=== PATIENT | male | born 1975 | race Caucasian/White ===

== ENCOUNTER 2020-06-02 21:54 | Inpatient (IN) | payer OTHER ==
[2020-06-02 21:57] VITALS: BMI 29.2
[2020-06-02] MEDS ORDERED: PANTOPRAZOLE SODIUM 40 MG VIAL IVPUSH ONE (22:17)
[2020-06-02] MEDS ORDERED: OCTREOTIDE ACETATE 50 MCG/1 ML - 1 ML VIAL IVPUSH ONE (22:18)
[2020-06-02] MEDS ORDERED: FOLIC ACID INJECTION - 1 MG, THIAMINE HCL 100 MG, MULTIVIT INJECTION ADULT 10 ML in SOD... IVPB ONE (22:32)
[2020-06-02 22:38] LABS: BASO % 1.1 % (0-2.0); EOS % 0.4 % (0-4.5); HEMATOCRIT 49.4 % (35.4-49); HEMOGLOBIN 17.6 GM/dL (11.7-16.9); LYMPH % 13.3 % (8-40); MCH 32.5 pg (25.7-33.7); MCHC 35.6 g/dl (32.0-35.9); MEAN CELL VOLUME 91.3 fl (80-96); MEAN PLT VOLUME 7.7 fl (7.5-11.1); MONO % 7.8 % (3.8-10.2); NEUT % 77.4 % (42.8-82.8); PLATELET COUNT 103 K/MM3 (134-434); RBC 5.42 M/mm3 (4.00-5.60); WHITE BLOOD COUNT 3.5 K/mm3 (4.0-10.0)
[2020-06-02 22:45] LABS: INR 1.04 (0.83-1.09); PROTHROMBIN TIME (PATIENT) 12.8 SEC (9.7-13.0)
[2020-06-02 22:47] LABS: ACTIVATED PTT 32.6 SECONDS (25.2-36.5)
[2020-06-02] MEDS ORDERED: PANTOPRAZOLE SODIUM 40 MG VIAL ONE (22:48)
[2020-06-02 23:07] LABS: POTASSIUM 3.6 mmol/L (3.5-5.1)
[2020-06-02 23:08] LABS: CALCIUM 8.7 mg/dL (8.5-10.1)
[2020-06-02 23:09] LABS: ALBUMIN 4.4 g/dl (3.4-5.0); BLOOD UREA NITROGEN 7.4 mg/dL (7-18)
[2020-06-02 23:12] LABS: CREATININE 0.8 mg/dL (0.55-1.3)
[2020-06-02 23:14] LABS: BILIRUBIN,TOTAL 2.4 mg/dL (0.2-1); TOT PROT 8.4 g/dl (6.4-8.2)
[2020-06-02] MEDS ORDERED: CEFTRIAXONE 1,000 MG in DEXTROSE 5%-WATER - 50 ML IVPB ONE (23:43)
[2020-06-02] MEDS: OCTREOTIDE ACETATE 200 MCG, OCTREOTIDE ACETATE 1,000 MCG in DEXTROSE 5%-WATER - 496 ML IVPB SCH (23:57)
[2020-06-02] MEDS ORDERED: CEFTRIAXONE 1 GM/50 ML BAG ONE (23:59)
[2020-06-03] MEDS ORDERED: chlordiazePOXIDE HCL 25 MG CAPSULE PO ONE (01:38)
[2020-06-03] MEDS ORDERED: LORazepam 2 MG/ML SDV VIAL IVPUSH PRN (01:39)
[2020-06-03] MEDS ORDERED: LORazepam 2 MG/ML SDV VIAL IVPUSH ONE (01:45)
[2020-06-03] MEDS ORDERED: SODIUM CHLORIDE 1,000 ML IV SCH (01:45)
[2020-06-03] MEDS ORDERED: chlordiazePOXIDE HCL 25 MG CAPSULE ONE (01:50)
[2020-06-03 02:56] LABS: EPI CELLS 8 /uL (0-25.1); HYALINE CASTS 2 /uL (0-3.1); URINE APPEARANCE CLEAR; URINE BACTERIA 22 /uL (0-1359); URINE BILIRUBIN 1+ (NEGATIVE); URINE COLOR DK YELLOW; URINE GLUCOSE (UA) 3+ (NEGATIVE); URINE KETONE 3+ (NEGATIVE); URINE LEUK ESTERASE NEGATIVE (NEGATIVE); URINE NITRITE NEGATIVE (NEGATIVE); URINE PROTEIN 2+ (NEGATIVE); URINE RBC 10 /uL (0-23.9); URINE UROBILINOGEN 4.0 E.U/dl mg/dL (0.2-1.0); URINE WBC 2 /uL (0-25.8)
[2020-06-03] MEDS: SODIUM CHLORIDE 1,000 ML IV SCH (03:19)
[2020-06-03] MEDS ORDERED: INSULIN SLIDING SCALE (NOVOLOG) 1 VIAL SQ ONE (08:40)
[2020-06-03] MEDS: INSULIN SLIDING SCALE (NOVOLOG) 1 VIAL SQ SCH ×3 (08:43→23:09)
[2020-06-03] MEDS ORDERED: THIAMINE HCL 200 MG/2 ML VIAL ONE (10:15)
[2020-06-03] MEDS ORDERED: PANTOPRAZOLE SODIUM 40 MG VIAL ONE (10:16)
[2020-06-03] MEDS: THIAMINE HCL 200 MG/2 ML VIAL IVPB SCH (10:23)
[2020-06-03] MEDS: PANTOPRAZOLE SODIUM 40 MG VIAL IVPUSH SCH ×2 (10:23→23:09)
[2020-06-03] MEDS: LORazepam 2 MG/ML SDV VIAL IVPUSH SCH ×2 (13:24→18:45)
[2020-06-03 14:33] LABS: BASO % 0.9 % (0-2.0); EOS % 1.6 % (0-4.5); HEMATOCRIT 42.7 % (35.4-49); HEMOGLOBIN 14.8 GM/dL (11.7-16.9); LYMPH % 15.1 % (8-40); MCHC 34.6 g/dl (32.0-35.9); MEAN CELL VOLUME 92.4 fl (80-96); MEAN PLT VOLUME 8.1 fl (7.5-11.1); MONO % 9.9 % (3.8-10.2); NEUT % 72.5 % (42.8-82.8); PLATELET COUNT 68 K/MM3 (134-434); RBC 4.62 M/mm3 (4.00-5.60); RDW 13.9 % (11.9-15.9); WHITE BLOOD COUNT 3.3 K/mm3 (4.0-10.0)
[2020-06-03 14:51] LABS: CALCIUM 8.4 mg/dL (8.5-10.1)
[2020-06-03 14:53] LABS: ALBUMIN 3.6 g/dl (3.4-5.0); BLOOD UREA NITROGEN 8.6 mg/dL (7-18); MAGNESIUM 2.1 mg/dL (1.8-2.4)
[2020-06-03 14:55] LABS: CREATININE 0.6 mg/dL (0.55-1.3)
[2020-06-03 14:56] LABS: BILIRUBIN,TOTAL 3.5 mg/dL (0.2-1); PHOSPHOROUS 3.2 mg/dL (2.5-4.9); TOT PROT 6.9 g/dl (6.4-8.2)
[2020-06-03] MEDS ORDERED: INSULIN (LEVEMIR) 100 UNITS/ML UNITS SQ SCH (22:00)
[2020-06-03] MEDS: OCTREOTIDE ACETATE 200 MCG, OCTREOTIDE ACETATE 1,000 MCG in DEXTROSE 5%-WATER - 496 ML IVPB SCH (23:40)
[2020-06-04] MEDS: LORazepam 2 MG/ML SDV VIAL IVPUSH SCH ×5 (02:27→17:51)
[2020-06-04] MEDS: SODIUM CHLORIDE 1,000 ML IV SCH (06:19)
[2020-06-04] MEDS: INSULIN SLIDING SCALE (NOVOLOG) 1 VIAL SQ SCH ×4 (06:20→22:18)
[2020-06-04 08:22] LABS: HEMATOCRIT 42.4 % (35.4-49); HEMOGLOBIN 15.2 GM/dL (11.7-16.9); MCH 32.6 pg (25.7-33.7); MCHC 35.9 g/dl (32.0-35.9); MEAN CELL VOLUME 90.8 fl (80-96); MEAN PLT VOLUME 8.3 fl (7.5-11.1); PLATELET COUNT 66 K/MM3 (134-434); RBC 4.67 M/mm3 (4.00-5.60); WHITE BLOOD COUNT 2.7 K/mm3 (4.0-10.0)
[2020-06-04 08:37] LABS: POTASSIUM 3.3 mmol/L (3.5-5.1)
[2020-06-04 08:49] LABS: BILIRUBIN,TOTAL 3.6 mg/dL (0.2-1); TOT PROT 6.7 g/dl (6.4-8.2)
[2020-06-04 08:53] LABS: ALBUMIN 3.6 g/dl (3.4-5.0); BLOOD UREA NITROGEN 8.9 mg/dL (7-18); CALCIUM 8.6 mg/dL (8.5-10.1)
[2020-06-04 08:57] LABS: CREATININE 0.6 mg/dL (0.55-1.3)
[2020-06-04] MEDS ORDERED: FLU VACCINE (FLULAVAL) PF 60 MCG/0.5 ML SYRINGE 2020-2021 IM ONE (10:00)
[2020-06-04] MEDS ORDERED: PNEUMOCOCCAL 23 VACCINE 0.5 ML VIAL IM ONE (10:00)
[2020-06-04] MEDS ORDERED: PNEUMOC 13-VAL CONJ-DIP CRM/PF 0.5 ML DISP.SYRIN IM ONE (10:00)
[2020-06-04] MEDS: PANTOPRAZOLE SODIUM 40 MG VIAL IVPUSH SCH (10:45)
[2020-06-04] MEDS: THIAMINE HCL 200 MG/2 ML VIAL IVPB SCH (10:45)
[2020-06-04 13:10] LABS: MAGNESIUM 2.1 mg/dL (1.8-2.4)
[2020-06-04 13:11] LABS: PHOSPHOROUS 3.1 mg/dL (2.5-4.9)
[2020-06-04] MEDS ORDERED: POTASSIUM CHLORIDE TABS 20 MEQ TABLET.ER (FP) PO ONE (15:37)
[2020-06-04] MEDS: LORazepam 1 MG TABLET PO SCH ×3 (19:48→22:18)
[2020-06-04] MEDS: INSULIN (LEVEMIR) 100 UNITS/ML UNITS SQ SCH (22:19)
[2020-06-05] MEDS ORDERED: LORazepam 2 MG/ML SDV VIAL IVPUSH SCH (05:00)
[2020-06-05] MEDS: LORazepam 0.5 MG TABLET PO SCH ×4 (06:32→23:09)
[2020-06-05] MEDS: INSULIN SLIDING SCALE (NOVOLOG) 1 VIAL SQ SCH ×4 (06:32→21:39)
[2020-06-05 07:25] LABS: EOS % 3.1 % (0-4.5); HEMATOCRIT 44.3 % (35.4-49); HEMOGLOBIN 15.9 GM/dL (11.7-16.9); LYMPH % 18.9 % (8-40); MCH 32.8 pg (25.7-33.7); MCHC 35.8 g/dl (32.0-35.9); MEAN CELL VOLUME 91.6 fl (80-96); MEAN PLT VOLUME 8.2 fl (7.5-11.1); MONO % 8.1 % (3.8-10.2); NEUT % 68.9 % (42.8-82.8); PLATELET COUNT 65 K/MM3 (134-434); RBC 4.83 M/mm3 (4.00-5.60); RDW 13.9 % (11.9-15.9); WHITE BLOOD COUNT 3.9 K/mm3 (4.0-10.0)
[2020-06-05 07:28] LABS: INR 1.01 (0.83-1.09); PROTHROMBIN TIME (PATIENT) 12.4 SEC (9.7-13.0)
[2020-06-05 07:35] LABS: ALBUMIN 3.5 g/dl (3.4-5.0); CALCIUM 8.4 mg/dL (8.5-10.1)
[2020-06-05 07:36] LABS: BLOOD UREA NITROGEN 10.4 mg/dL (7-18); MAGNESIUM 2.1 mg/dL (1.8-2.4)
[2020-06-05 07:38] LABS: PHOSPHOROUS 3.6 mg/dL (2.5-4.9)
[2020-06-05 07:39] LABS: CREATININE 0.6 mg/dL (0.55-1.3)
[2020-06-05 07:40] LABS: BILIRUBIN,TOTAL 2.5 mg/dL (0.2-1); TOT PROT 6.9 g/dl (6.4-8.2)
[2020-06-05] MEDS: FOLIC ACID 1 MG TABLET (FP) PO SCH (09:33)
[2020-06-05] MEDS: POTASSIUM CHLORIDE TABS 20 MEQ TABLET.ER (FP) PO SCH ×2 (09:33→21:38)
[2020-06-05] MEDS: THIAMINE HCL 200 MG/2 ML VIAL IVPB SCH (09:33)
[2020-06-05] MEDS: PANTOPRAZOLE 20 MG TABLET PO SCH (09:33)
[2020-06-05] MEDS: INSULIN (LEVEMIR) 100 UNITS/ML UNITS SQ SCH (21:39)
[2020-06-06] MEDS ORDERED: LORazepam 0.5 MG TABLET PO PRN
[2020-06-06] MEDS ORDERED: LORazepam 2 MG/ML SDV VIAL IVPUSH SCH (05:00)
[2020-06-06] MEDS ORDERED: LORazepam 0.5 MG TABLET PO ONE (05:00)
[2020-06-06] MEDS: INSULIN SLIDING SCALE (NOVOLOG) 1 VIAL SQ SCH ×3 (07:07→17:18)
[2020-06-06 07:35] LABS: EOS % 3.2 % (0-4.5); HEMATOCRIT 42.5 % (35.4-49); HEMOGLOBIN 15.2 GM/dL (11.7-16.9); LYMPH % 22.1 % (8-40); MCH 32.8 pg (25.7-33.7); MCHC 35.7 g/dl (32.0-35.9); MEAN CELL VOLUME 92.1 fl (80-96); MEAN PLT VOLUME 8.6 fl (7.5-11.1); MONO % 11.2 % (3.8-10.2); NEUT % 62.5 % (42.8-82.8); PLATELET COUNT 76 K/MM3 (134-434); RBC 4.61 M/mm3 (4.00-5.60); RDW 14.1 % (11.9-15.9); WHITE BLOOD COUNT 4.1 K/mm3 (4.0-10.0)
[2020-06-06 07:43] LABS: POTASSIUM 3.3 mmol/L (3.5-5.1)
[2020-06-06 07:53] LABS: ALBUMIN 3.5 g/dl (3.4-5.0); BLOOD UREA NITROGEN 8.6 mg/dL (7-18); CALCIUM 8.5 mg/dL (8.5-10.1); MAGNESIUM 2.3 mg/dL (1.8-2.4)
[2020-06-06 07:55] LABS: CREATININE 0.6 mg/dL (0.55-1.3)
[2020-06-06 07:56] LABS: PHOSPHOROUS 3.9 mg/dL (2.5-4.9)
[2020-06-06 07:57] LABS: BILIRUBIN,TOTAL 2.3 mg/dL (0.2-1); TOT PROT 6.6 g/dl (6.4-8.2)
[2020-06-06] MEDS ORDERED: POTASSIUM CHLORIDE TABS 20 MEQ TABLET.ER (FP) PO ONE (09:25)
[2020-06-06] MEDS: THIAMINE HCL 200 MG/2 ML VIAL IVPB SCH (09:34)
[2020-06-06] MEDS: PANTOPRAZOLE 20 MG TABLET PO SCH (09:34)
[2020-06-06] MEDS: FOLIC ACID 1 MG TABLET (FP) PO SCH (09:35)
[2020-06-06] MEDS ORDERED: PT OWN MED DRAWER 7, Y5N ONE (10:10)
[2020-06-06 11:10] VITALS: TEMP 98.1
[2020-06-06 18:21] VITALS: BP 122/80; PULSE 102
== END 2020-06-06 18:53 | disposition home or self-care (01) | DRG 243 ==
LOC: JER 21:54 → JERBED 23:46 → J4W 06-03 11:34
PROVIDERS: ADMIT Internal Medicine; ATTEND Internal Medicine
PROC: 0DB68ZX Excision of Stomach, Via Natural or Artificial Opening Endoscopic, Diagnostic (ICD-10-PCS; principal; 2020-06-02)
PROC: 0DB78ZX Excision of Stomach, Pylorus, Via Natural or Artificial Opening Endoscopic, Diagnostic (ICD-10-PCS; 2020-06-02)
PROC: HZ2ZZZZ Detoxification Services for Substance Abuse Treatment (ICD-10-PCS; 2020-06-02)
DX: K20.91 Esophagitis, unspecified with bleeding (principal); K92.0 Hematemesis; I10 Essential (primary) hypertension; E87.2 Acidosis; F10.129 Alcohol abuse with intoxication, unspecified; Y90.5 Blood alcohol level of 100-119 mg/100 ml; K70.10 Alcoholic hepatitis without ascites; F10.130 Alcohol abuse with withdrawal, uncomplicated; E11.65 Type 2 diabetes mellitus with hyperglycemia; E87.6 Hypokalemia; L53.8 Other specified erythematous conditions; K29.70 Gastritis, unspecified, without bleeding; R74.01 Elevation of levels of liver transaminase levels
CPT/HCPCS: 36415; 71045-TC-FY; 76705-TC; 80048; 80053; 80074; 80076; 80307; 81003; 82010; 82248; 82550; 82962; 83036; 83605; 83690; 83735; 84100; 84443; 85025; 85027; 85610; 85730; 86317; 86706; 86850; 86900; 86901; 88305-TC; 90732; 93005; 93010; 99285-25; C9803; G0008; G0009; Q2036; U0003

== ENCOUNTER 2020-10-24 21:54 | Emergency (ER) | payer OTHER ==
[2020-10-24 22:23] VITALS: BMI 29.2
[2020-10-24] MEDS ORDERED: FOLIC ACID INJECTION - 1 MG, THIAMINE HCL 100 MG, MULTIVIT INJECTION ADULT 10 ML in SOD... IVPB ONE (23:17)
[2020-10-24] MEDS ORDERED: SODIUM CHLORIDE 1,000 ML IV STA (23:17)
[2020-10-24] MEDS ORDERED: PANTOPRAZOLE SODIUM 40 MG VIAL IVPUSH ONE (23:17)
[2020-10-24 23:55] LABS: INR 0.98 (0.83-1.09); PROTHROMBIN TIME (PATIENT) 11.9 SEC (9.7-13.0)
[2020-10-24 23:58] LABS: ACTIVATED PTT 28.3 SECONDS (25.2-36.5)
[2020-10-25 00:07] LABS: CHLORIDE 95 mmol/L (98-107); SODIUM 134 mmol/L (136-145)
[2020-10-25 00:10] LABS: ALBUMIN 4.4 g/dl (3.4-5.0); ANION GAP 17 MMOL/L (8-16); BLOOD UREA NITROGEN 5.8 mg/dL (7-18); CALCIUM 8.7 mg/dL (8.5-10.1); CO2 22 mmol/L (21-32); GLUCOSE,RANDOM 320 mg/dL (74-106); MAGNESIUM 2.4 mg/dL (1.8-2.4)
[2020-10-25 00:13] LABS: CREATININE 1.4 mg/dL (0.55-1.3); SGOT/AST 212 U/L (15-37); SGPT/ALT 237 U/L (13-61)
[2020-10-25 00:15] LABS: BILIRUBIN,TOTAL 1.9 mg/dL (0.2-1); TOT PROT 8.2 g/dl (6.4-8.2)
[2020-10-25 00:16] LABS: ALK PHOS 168 U/L (45-117)
[2020-10-25 01:58] LABS: BASO % 0.6 % (0-2.0); EOS % 0.1 % (0-4.5); LYMPH % 19.3 % (8-40); MCH 31.8 pg (25.7-33.7); MCHC 34.9 g/dl (32.0-35.9); MEAN PLT VOLUME 7.3 fl (7.5-11.1); MONO % 7.4 % (3.8-10.2); NEUT % 72.6 % (42.8-82.8); PLATELET COUNT 56 10^3/uL (134-434); RBC 4.73 M/mm3 (4.00-5.60); RDW 13.8 % (11.9-15.9); WHITE BLOOD COUNT 2.8 K/mm3 (4.0-10.0)
[2020-10-25 04:08] LABS: VENOUS BASE EXCESS -3.2 mmol/L (-2-2); VENOUS O2 SATURATION 93.1 % (70-80); VENOUS PCO2 37.8 mmHg (38-52); VENOUS PH 7.373 (7.310-7.410)
[2020-10-25 04:32] LABS: CALCIUM 8.1 mg/dL (8.5-10.1)
[2020-10-25 04:33] LABS: BLOOD UREA NITROGEN 5.3 mg/dL (7-18)
[2020-10-25 04:36] LABS: CREATININE 1.3 mg/dL (0.55-1.3)
[2020-10-25 04:56] VITALS: BP 138/77; PULSE 115; TEMP 98.8
== END 2020-10-25 06:13 | disposition home or self-care (01) ==
LOC: JER 21:54
PROC: 3E033GC Introduction of Other Therapeutic Substance into Peripheral Vein, Percutaneous Approach (ICD-10-PCS; principal; 2020-10-24)
PROC: 3E033GC Introduction of Other Therapeutic Substance into Peripheral Vein, Percutaneous Approach (ICD-10-PCS; 2020-10-24)
PROC: 3E0337Z Introduction of Electrolytic and Water Balance Substance into Peripheral Vein, Percutaneous Approach (ICD-10-PCS; 2020-10-24)
DX: F10.29 Alcohol dependence with unspecified alcohol-induced disorder (principal); E86.0 Dehydration; R73.9 Hyperglycemia, unspecified
CPT/HCPCS: 36415; 70450-TC; 71260-TC; 74177-TC; 80048; 80053; 80307; 82010; 82550; 82803; 83605; 83735; 84484; 85025; 85610; 85730; 86850; 86870; 86900; 86901; 86902; 93005; 93010; 99285-25

== ENCOUNTER 2020-12-30 01:49 | Inpatient (IN) | payer OTHER ==
[2020-12-30] MEDS ORDERED: ONDANSETRON *ODT* 4 MG TABLET SL PRN (02:49)
[2020-12-30] MEDS ORDERED: DICYCLOMINE HCL 10 MG CAPSULE PO PRN (02:49)
[2020-12-30] MEDS ORDERED: diazePAM 5 MG TABLET PO PRN (02:49)
[2020-12-30] MEDS ORDERED: hydrOXYzine PAMOATE 25 MG CAPSULE (FP) PO PRN (02:49)
[2020-12-30] MEDS ORDERED: MAGNESIUM CITRATE 300 ML BOTTLE PO PRN (02:49)
[2020-12-30] MEDS ORDERED: BISMUTH SUBSALICYLATE 524 MG/30 ML PO PRN (02:49)
[2020-12-30] MEDS ORDERED: guaiFENesin 200 MG/10 ML 10 ML UNIT-DOSE CUPS PO PRN (02:49)
[2020-12-30] MEDS ORDERED: MAG HYDROX/AL HYDROX/SIMETH 30 ML UNIT-DOSE CUP PO PRN (02:49)
[2020-12-30] MEDS ORDERED: IBUPROFEN 400 MG TABLET (FP) PO PRN (02:49)
[2020-12-30] MEDS ORDERED: P-EPHED 60MG/TRIPROLIDI 2.5MG TABLET PO PRN (02:49)
[2020-12-30] MEDS ORDERED: MENTHOL/PHENOL 1 EACH UD MM PRN (02:49)
[2020-12-30] MEDS ORDERED: MAGNESIUM HYDROX 2400MG/30ML ORAL SUSPENSION 30 ML CUP PO PRN (02:49)
[2020-12-30] MEDS ORDERED: METHOCARBAMOL 500 MG TABLET PO PRN (02:49)
[2020-12-30] MEDS ORDERED: ACETAMINOPHEN 325 MG TABLET (FP) PO PRN ×2 (02:49)
[2020-12-30] MEDS: diazePAM 5 MG TABLET PO SCH ×4 (06:29→22:40)
[2020-12-30] MEDS: PRENATAL VITAMINS W/ FOLIC ACID TABLET (FP) PO SCH (10:39)
[2020-12-30] MEDS: MELATONIN 5 MG TABLETS PO SCH (22:39)
[2020-12-30] MEDS: THIAMINE HCL 100 MG TABLET (FP) PO SCH (22:40)
[2020-12-31] MEDS: INSULIN SLIDING SCALE (NOVOLOG) 1 VIAL SQ SCH ×3 (06:03→17:16)
[2020-12-31] MEDS: diazePAM 5 MG TABLET PO SCH ×3 (06:03→23:17)
[2020-12-31] MEDS ORDERED: INSULIN SLIDING SCALE (NOVOLOG) 1 VIAL SQ ONE (07:55)
[2020-12-31] MEDS: PRENATAL VITAMINS W/ FOLIC ACID TABLET (FP) PO SCH (10:27)
[2020-12-31 11:36] LABS: BASO % 1.1 % (0-2.0); EOS % 3.5 % (0-4.5); HEMATOCRIT 44.6 % (35.4-49); HEMOGLOBIN 16.2 GM/dL (11.7-16.9); LYMPH % 20.9 % (8-40); MCH 33.5 pg (25.7-33.7); MCHC 36.3 g/dl (32.0-35.9); MEAN CELL VOLUME 92.3 fl (80-96); MEAN PLT VOLUME 8.4 fl (7.5-11.1); MONO % 11.2 % (3.8-10.2); NEUT % 63.3 % (42.8-82.8); PLATELET COUNT 101 10^3/uL (134-434); RBC 4.84 M/mm3 (4.00-5.60); RDW 13.8 % (11.9-15.9)
[2020-12-31 11:48] LABS: CHLORIDE 95 mmol/L (98-107); SODIUM 133 mmol/L (136-145)
[2020-12-31 11:55] LABS: ALBUMIN 4.2 g/dl (3.4-5.0); BLOOD UREA NITROGEN 7.5 mg/dL (7-18); CALCIUM 9.3 mg/dL (8.5-10.1); CO2 27 mmol/L (21-32); GLUCOSE,RANDOM 215 mg/dL (74-106)
[2020-12-31 11:58] LABS: CREATININE 0.9 mg/dL (0.55-1.3); SGOT/AST 331 U/L (15-37); SGPT/ALT 288 U/L (13-61)
[2020-12-31 12:00] LABS: BILIRUBIN,TOTAL 2.3 mg/dL (0.2-1); TOT PROT 7.9 g/dl (6.4-8.2)
[2020-12-31] MEDS ORDERED: metFORMIN HCL 500 MG TABLET (FP) PO SCH (12:00)
[2020-12-31 12:02] LABS: ALK PHOS 168 U/L (45-117); ANION GAP 12 MMOL/L (8-16)
[2020-12-31] MEDS: POTASSIUM CHLORIDE ORAL LIQUID 20 MEQ/15 ML PO SCH ×3 (13:27→23:15)
[2020-12-31] MEDS ORDERED: metFORMIN HCL 500 MG TABLET (FP) PO ONE (14:34)
[2020-12-31] MEDS: metFORMIN HCL 500 MG TABLET (FP) PO SCH (18:10)
[2020-12-31] MEDS: THIAMINE HCL 100 MG TABLET (FP) PO SCH (23:17)
[2020-12-31] MEDS: MELATONIN 5 MG TABLETS PO SCH (23:17)
[2021-01-01] MEDS: diazePAM 5 MG TABLET PO SCH ×2 (07:18→17:54)
[2021-01-01] MEDS: metFORMIN HCL 500 MG TABLET (FP) PO SCH ×2 (07:19→17:54)
[2021-01-01] MEDS ORDERED: INSULIN SLIDING SCALE (NOVOLOG) 1 VIAL SQ ONE (07:43)
[2021-01-01] MEDS: INSULIN SLIDING SCALE (NOVOLOG) 1 VIAL SQ SCH ×2 (07:44→16:53)
[2021-01-01] MEDS: PRENATAL VITAMINS W/ FOLIC ACID TABLET (FP) PO SCH (11:25)
[2021-01-01 11:52] LABS: CALCIUM 9.8 mg/dL (8.5-10.1)
[2021-01-01 11:58] LABS: ALBUMIN 4.2 g/dl (3.4-5.0); BLOOD UREA NITROGEN 8.3 mg/dL (7-18)
[2021-01-01 12:01] LABS: CREATININE 0.8 mg/dL (0.55-1.3)
[2021-01-01 12:02] LABS: BILIRUBIN,TOTAL 2.1 mg/dL (0.2-1); TOT PROT 8.1 g/dl (6.4-8.2)
[2021-01-01] MEDS: THIAMINE HCL 100 MG TABLET (FP) PO SCH (22:39)
[2021-01-01] MEDS: MELATONIN 5 MG TABLETS PO SCH (22:40)
[2021-01-02] MEDS ORDERED: diazePAM 5 MG TABLET PO ONE (06:00)
[2021-01-02] MEDS: metFORMIN HCL 500 MG TABLET (FP) PO SCH (06:00)
[2021-01-02] MEDS: INSULIN SLIDING SCALE (NOVOLOG) 1 VIAL SQ SCH (07:13)
[2021-01-02 09:13] VITALS: BP 123/84; PULSE 98; TEMP 96.4
[2021-01-02] MEDS: PRENATAL VITAMINS W/ FOLIC ACID TABLET (FP) PO SCH (10:01)
== END 2021-01-02 10:03 | disposition home or self-care (01) | DRG 775 ==
LOC: YASAS 01:49 → Y3N 03:15
PROVIDERS: ADMIT Allergy & Immunology; ATTEND Allergy & Immunology
PROC: HZ2ZZZZ Detoxification Services for Substance Abuse Treatment (ICD-10-PCS; principal; 2020-12-30)
DX: F10.230 Alcohol dependence with withdrawal, uncomplicated (principal); F19.282 Other psychoactive substance dependence with psychoactive substance-induced sleep disorder; E11.9 Type 2 diabetes mellitus without complications; Z79.84 Long term (current) use of oral hypoglycemic drugs; R63.8 Other symptoms and signs concerning food and fluid intake; R79.89 Other specified abnormal findings of blood chemistry; Z20.822 Contact with and (suspected) exposure to COVID-19
CPT/HCPCS: 36415; 76705-TC; 80053; 82962; 83690; 85025; 86780; 93005; 93010; C9803; U0003; U0005

== ENCOUNTER 2021-02-17 23:29 | Inpatient (IN) | payer OTHER ==
[2021-02-17 23:53] VITALS: BMI 31.8
[2021-02-18] MEDS ORDERED: MAGNESIUM HYDROX 2400MG/30ML ORAL SUSPENSION 30 ML CUP PO PRN (00:35)
[2021-02-18] MEDS ORDERED: MAG HYDROX/AL HYDROX/SIMETH 30 ML UNIT-DOSE CUP PO PRN (00:35)
[2021-02-18] MEDS ORDERED: MENTHOL/PHENOL 1 EACH UD MM PRN (00:35)
[2021-02-18] MEDS ORDERED: BISMUTH SUBSALICYLATE 524 MG/30 ML PO PRN (00:35)
[2021-02-18] MEDS ORDERED: IBUPROFEN 400 MG TABLET (FP) PO PRN (00:35)
[2021-02-18] MEDS ORDERED: MAGNESIUM CITRATE 300 ML BOTTLE PO PRN (00:35)
[2021-02-18] MEDS ORDERED: ACETAMINOPHEN 325 MG TABLET (FP) PO PRN ×2 (00:35)
[2021-02-18] MEDS: ONDANSETRON *ODT* 4 MG TABLET SL PRN ×2 (01:07→10:17)
[2021-02-18] MEDS ORDERED: LORazepam 1 MG TABLET ONE (01:34)
[2021-02-18] MEDS: LORazepam 1 MG TABLET PO PRN ×2 (01:37→14:50)
[2021-02-18] MEDS: LORazepam 2 MG TABLET PO SCH ×4 (05:57→22:27)
[2021-02-18] MEDS ORDERED: metFORMIN HCL 500 MG TABLET (FP) PO ONE (07:32)
[2021-02-18] MEDS ORDERED: metFORMIN HCL 500 MG TABLET (FP) PO SCH (10:00)
[2021-02-18] MEDS: PRENATAL VITAMINS W/ FOLIC ACID TABLET (FP) PO SCH (10:13)
[2021-02-18] MEDS: metFORMIN HCL 500 MG TABLET (FP) PO SCH (17:33)
[2021-02-18] MEDS: THIAMINE HCL 100 MG TABLET (FP) PO SCH (22:28)
[2021-02-18] MEDS: MELATONIN 5 MG TABLETS PO SCH (22:28)
[2021-02-19] MEDS: LORazepam 1 MG TABLET PO SCH ×4 (05:21→22:19)
[2021-02-19] MEDS: metFORMIN HCL 500 MG TABLET (FP) PO SCH ×2 (06:15→18:05)
[2021-02-19] MEDS: PRENATAL VITAMINS W/ FOLIC ACID TABLET (FP) PO SCH (10:27)
[2021-02-19] MEDS: METHOCARBAMOL 500 MG TABLET PO PRN ×2 (10:28→22:19)
[2021-02-19 10:54] LABS: HEMATOCRIT 41.8 % (35.4-49); HEMOGLOBIN 14.9 GM/dL (11.7-16.9); MCH 32.4 pg (25.7-33.7); MCHC 35.6 g/dl (32.0-35.9); PLATELET COUNT 77 10^3/uL (134-434); RBC 4.59 M/mm3 (4.00-5.60); RDW 13.5 % (11.9-15.9); WHITE BLOOD COUNT 3.1 K/mm3 (4.0-10.0)
[2021-02-19 10:55] LABS: BLOOD UREA NITROGEN 10.6 mg/dL (7-18); CALCIUM 9.1 mg/dL (8.5-10.1)
[2021-02-19 10:59] LABS: CREATININE 0.7 mg/dL (0.55-1.3)
[2021-02-19 11:00] LABS: BILIRUBIN,TOTAL 2.7 mg/dL (0.2-1); TOT PROT 7.2 g/dl (6.4-8.2)
[2021-02-19 11:07] LABS: ALBUMIN 3.8 g/dl (3.4-5.0)
[2021-02-19] MEDS: THIAMINE HCL 100 MG TABLET (FP) PO SCH (22:19)
[2021-02-19] MEDS: MELATONIN 5 MG TABLETS PO SCH (22:20)
[2021-02-20] MEDS ORDERED: LORazepam 0.5 MG TABLET PO PRN
[2021-02-20] MEDS: LORazepam 0.5 MG TABLET PO SCH ×4 (06:23→22:27)
[2021-02-20] MEDS: metFORMIN HCL 500 MG TABLET (FP) PO SCH ×2 (06:23→17:28)
[2021-02-20] MEDS: PRENATAL VITAMINS W/ FOLIC ACID TABLET (FP) PO SCH (10:40)
[2021-02-20 10:57] LABS: BASO % 0.4 % (0-2.0); EOS % 2.6 % (0-4.5); HEMATOCRIT 42.2 % (35.4-49); HEMOGLOBIN 14.8 GM/dL (11.7-16.9); LYMPH % 20.3 % (8-40); MCH 32.1 pg (25.7-33.7); MCHC 35.1 g/dl (32.0-35.9); MEAN CELL VOLUME 91.4 fl (80-96); MEAN PLT VOLUME 8.3 fl (7.5-11.1); MONO % 9.5 % (3.8-10.2); NEUT % 67.2 % (42.8-82.8); PLATELET COUNT 70 10^3/uL (134-434); RBC 4.62 M/mm3 (4.00-5.60); RDW 13.8 % (11.9-15.9); WHITE BLOOD COUNT 3.5 K/mm3 (4.0-10.0)
[2021-02-20 11:04] LABS: ALBUMIN 3.7 g/dl (3.4-5.0)
[2021-02-20 11:07] LABS: BILIRUBIN,DIRECT 0.5 mg/dL (0.0-0.2)
[2021-02-20 11:09] LABS: BILIRUBIN,TOTAL 2.3 mg/dL (0.2-1); TOT PROT 7.1 g/dl (6.4-8.2)
[2021-02-20] MEDS: MELATONIN 5 MG TABLETS PO SCH (22:27)
[2021-02-20] MEDS: THIAMINE HCL 100 MG TABLET (FP) PO SCH (22:27)
[2021-02-21] MEDS ORDERED: LORazepam 0.5 MG TABLET PO ONE (05:00)
[2021-02-21] MEDS: metFORMIN HCL 500 MG TABLET (FP) PO SCH (06:21)
[2021-02-21 09:11] VITALS: BP 115/77; PULSE 97; TEMP 96.9
== END 2021-02-21 09:36 | disposition home or self-care (01) | DRG 775 ==
LOC: YASAS 23:29 → Y3N 02-18 02:02
PROVIDERS: ADMIT Allergy & Immunology; ATTEND Allergy & Immunology
PROC: HZ2ZZZZ Detoxification Services for Substance Abuse Treatment (ICD-10-PCS; principal; 2021-02-18)
DX: F10.230 Alcohol dependence with withdrawal, uncomplicated (principal); F19.282 Other psychoactive substance dependence with psychoactive substance-induced sleep disorder; D69.6 Thrombocytopenia, unspecified; D72.819 Decreased white blood cell count, unspecified; E80.6 Other disorders of bilirubin metabolism; E11.9 Type 2 diabetes mellitus without complications; Z79.84 Long term (current) use of oral hypoglycemic drugs; K70.30 Alcoholic cirrhosis of liver without ascites; R74.01 Elevation of levels of liver transaminase levels; Z74.8 Other problems related to care provider dependency; R63.8 Other symptoms and signs concerning food and fluid intake; Z87.19 Personal history of other diseases of the digestive system
CPT/HCPCS: 36415; 80053; 80076; 80307; 82962; 83690; 85025; 85027; 85610; 85730; 86780; 93005; 93010; C9803; J0131; Q0162; U0003; U0005

== ENCOUNTER 2021-03-13 14:25 | Inpatient (IN) | payer OTHER ==
[2021-03-13] MEDS ORDERED: FAMOTIDINE 20 MG/50 ML IVPB 20 MG/50 ML MG IVPB ONE ×2 (15:28→15:33)
[2021-03-13] MEDS ORDERED: MAG HYDROX/AL HYDROX/SIMETH -MYLANTA- ORAL SUSPENSION PO ONE (15:28)
[2021-03-13] MEDS ORDERED: ONDANSETRON 4 MG/2 ML VIAL IVPUSH ONE (15:28)
[2021-03-13] MEDS ORDERED: LACTATED RINGERS SOLUTION 1000 ML INFUS.BAG IV ONE ×2 (15:29→16:56)
[2021-03-13] MEDS ORDERED: ONDANSETRON 4 MG/2 ML VIAL ONE (15:33)
[2021-03-13] MEDS ORDERED: MAG HYDROX/AL HYDROX/SIMETH 30 ML UNIT-DOSE CUP ONE (15:33)
[2021-03-13 16:11] LABS: VENOUS BASE EXCESS 0.5 mmol/L (-2-2); VENOUS O2 SATURATION 92.5 % (70-80); VENOUS PCO2 38.5 mmHg (38-52); VENOUS PH 7.425 (7.310-7.410)
[2021-03-13 16:15] LABS: BASO % 0.2 % (0-2.0); EOS % 0.1 % (0-4.5); HEMATOCRIT 47.1 % (35.4-49); HEMOGLOBIN 16.5 GM/dL (11.7-16.9); LYMPH % 6.4 % (8-40); MCH 31.7 pg (25.7-33.7); MCHC 35.1 g/dl (32.0-35.9); MEAN CELL VOLUME 90.3 fl (80-96); MEAN PLT VOLUME 7.7 fl (7.5-11.1); MONO % 6.8 % (3.8-10.2); NEUT % 86.5 % (42.8-82.8); PLATELET COUNT 101 10^3/uL (134-434); RBC 5.22 M/mm3 (4.00-5.60); WHITE BLOOD COUNT 4.3 K/mm3 (4.0-10.0)
[2021-03-13 16:27] LABS: CHLORIDE 90 mmol/L (98-107); SODIUM 132 mmol/L (136-145)
[2021-03-13 16:29] LABS: CALCIUM 9.3 mg/dL (8.5-10.1)
[2021-03-13] MEDS ORDERED: diazePAM CARPU-JECT 10 MG/2 ML DISP.SYRIN IVPUSH ONE (16:29)
[2021-03-13 16:30] LABS: ALBUMIN 4.2 g/dl (3.4-5.0); ANION GAP 19 MMOL/L (8-16); BLOOD UREA NITROGEN 5.3 mg/dL (7-18); CO2 23 mmol/L (21-32); GLUCOSE,RANDOM 322 mg/dL (74-106); LIPASE 175 U/L (73-393)
[2021-03-13 16:32] LABS: EPI CELLS 1 /uL (0-25.1); HYALINE CASTS 0 /uL (0-3.1); URINE APPEARANCE CLEAR; URINE BACTERIA 3 /uL (0-1359); URINE BILIRUBIN NEGATIVE (NEGATIVE); URINE COLOR YELLOW; URINE GLUCOSE (UA) 3+ (NEGATIVE); URINE KETONE 3+ (NEGATIVE); URINE LEUK ESTERASE NEGATIVE (NEGATIVE); URINE NITRITE NEGATIVE (NEGATIVE); URINE PROTEIN 2+ (NEGATIVE); URINE RBC 21 /uL (0-23.9); URINE UROBILINOGEN 4.0 E.U/dl mg/dL (0.2-1.0); URINE WBC 2 /uL (0-25.8)
[2021-03-13 16:32] LABS: SGOT/AST 61 U/L (15-37); SGPT/ALT 78 U/L (13-61)
[2021-03-13 16:33] LABS: CREATININE 1.6 mg/dL (0.55-1.3)
[2021-03-13 16:34] LABS: BILIRUBIN,TOTAL 2.5 mg/dL (0.2-1); TOT PROT 8.6 g/dl (6.4-8.2)
[2021-03-13 16:35] LABS: ALK PHOS 145 U/L (45-117)
[2021-03-13] MEDS ORDERED: diazePAM CARPU-JECT 10 MG/2 ML DISP.SYRIN ONE (16:40)
[2021-03-13] MEDS ORDERED: FOLIC ACID 1 MG TABLET (FP) PO ONE (16:56)
[2021-03-13] MEDS ORDERED: POTASSIUM CHLORIDE TABS 20 MEQ TABLET.ER (FP) PO ONE ×2 (16:56→17:23)
[2021-03-13] MEDS ORDERED: THIAMINE HCL 200 MG/2 ML VIAL IVPB ONE (16:56)
[2021-03-13] MEDS ORDERED: FOLIC ACID 1 MG TABLET (FP) ONE (17:23)
[2021-03-13] MEDS ORDERED: THIAMINE HCL 200 MG/2 ML VIAL ONE (17:23)
[2021-03-13] MEDS ORDERED: diazePAM 5 MG TABLET PO PRN (20:06)
[2021-03-13 21:05] LABS: CALCIUM 9.3 mg/dL (8.5-10.1)
[2021-03-13 21:06] LABS: BLOOD UREA NITROGEN 5.7 mg/dL (7-18)
[2021-03-13 21:09] LABS: CREATININE 1.6 mg/dL (0.55-1.3)
[2021-03-13 21:32] LABS: URINE BARBITURATES NEGATIVE (NEGATIVE)
[2021-03-13 21:33] LABS: COCAINE, UR NEGATIVE (NEGATIVE); OPIATES, URI NEGATIVE (NEGATIVE); PHENCYCLIDINE,URINE NEGATIVE (NEGATIVE); URINE BENZODIAZEPINES NEGATIVE (NEGATIVE)
[2021-03-13 21:46] LABS: METHADONE, UR NEGATIVE (NEGATIVE); URINE AMPHETAMINES NEGATIVE (NEGATIVE)
[2021-03-13 21:49] LABS: MAGNESIUM 2.7 mg/dL (1.8-2.4)
[2021-03-13] MEDS: SODIUM CHLORIDE 1,000 ML IV SCH (23:28)
[2021-03-13] MEDS ORDERED: HEPARIN NA (PORCINE) 5,000 UNITS/ML 1ML VIAL ONE (23:36)
[2021-03-13] MEDS ORDERED: diazePAM 5 MG TABLET ONE (23:36)
[2021-03-13] MEDS: HEPARIN NA (PORCINE) 5,000 UNITS/ML 1ML VIAL SQ SCH (23:40)
[2021-03-13] MEDS: diazePAM 5 MG TABLET PO SCH (23:41)
[2021-03-13] MEDS: INSULIN SLIDING SCALE (NOVOLOG) 1 VIAL SQ SCH (23:42)
[2021-03-14] MEDS ORDERED: POTASSIUM CHLORIDE TABS 20 MEQ TABLET.ER (FP) PO ONE ×2 (04:36→06:30)
[2021-03-14] MEDS ORDERED: ACETAMINOPHEN 325 MG TABLET (FP) PO PRN (05:02)
[2021-03-14] MEDS ORDERED: ONDANSETRON 4 MG/2 ML VIAL IVPUSH PRN (05:04)
[2021-03-14] MEDS ORDERED: PROCHLORPERAZINE INJECTION 10 MG/2 ML VIAL IVPB PRN (05:04)
[2021-03-14] MEDS ORDERED: HEPARIN NA (PORCINE) 5,000 UNITS/ML 1ML VIAL ONE (06:11)
[2021-03-14] MEDS: HEPARIN NA (PORCINE) 5,000 UNITS/ML 1ML VIAL SQ SCH (06:17)
[2021-03-14] MEDS: INSULIN SLIDING SCALE (NOVOLOG) 1 VIAL SQ SCH ×4 (06:26→21:25)
[2021-03-14] MEDS ORDERED: diazePAM 5 MG TABLET ONE ×2 (06:30→11:19)
[2021-03-14] MEDS: diazePAM 5 MG TABLET PO SCH ×4 (06:31→22:19)
[2021-03-14 07:34] LABS: BASO % 0.4 % (0-2.0); EOS % 0.7 % (0-4.5); HEMATOCRIT 41.4 % (35.4-49); HEMOGLOBIN 14.4 GM/dL (11.7-16.9); LYMPH % 27.4 % (8-40); MCHC 34.7 g/dl (32.0-35.9); MEAN PLT VOLUME 7.7 fl (7.5-11.1); MONO % 11.2 % (3.8-10.2); NEUT % 60.3 % (42.8-82.8); PLATELET COUNT 64 10^3/uL (134-434); RDW 13.8 % (11.9-15.9); WHITE BLOOD COUNT 3.1 K/mm3 (4.0-10.0)
[2021-03-14 07:41] LABS: ALBUMIN 3.5 g/dl (3.4-5.0); BLOOD UREA NITROGEN 7.6 mg/dL (7-18); CALCIUM 8.4 mg/dL (8.5-10.1)
[2021-03-14 07:42] LABS: MAGNESIUM 2.5 mg/dL (1.8-2.4)
[2021-03-14 07:44] LABS: BILIRUBIN,TOTAL 2.1 mg/dL (0.2-1); CREATININE 1.4 mg/dL (0.55-1.3); PHOSPHOROUS 2.2 mg/dL (2.5-4.9)
[2021-03-14 07:46] LABS: TOT PROT 6.9 g/dl (6.4-8.2)
[2021-03-14] MEDS ORDERED: NAPH,MB-DB/K PH,MBDB POWDER PACKET PO ONE (09:00)
[2021-03-14 09:20] LABS: CHOLESTEROL 337 mg/dL (50-200); TRIGLYCERIDES 320 mg/dL (0-150)
[2021-03-14 09:21] LABS: LDL CHOLESTEROL (ONLY SJRH) 225 mg/dL (5-100)
[2021-03-14 09:22] LABS: HDL CHOLESTEROL 53 mg/dL (40-60)
[2021-03-14] MEDS ORDERED: NAPH,MB-DB/K PH,MBDB POWDER PACKET ONE (09:42)
[2021-03-14] MEDS ORDERED: PANTOPRAZOLE SODIUM 40 MG VIAL IVPUSH SCH (10:00)
[2021-03-14] MEDS ORDERED: INSULIN SLIDING SCALE (NOVOLOG) 1 VIAL SQ ONE (14:29)
[2021-03-14 17:34] VITALS: BMI 28.7
[2021-03-14] MEDS ORDERED: FLU VACC QS2021-22(6MOS UP)/PF 60 MCG/0.5 ML SYRINGE IM ONE (17:34)
[2021-03-14] MEDS: ATORVASTATIN CA 40 MG TABLET (FP) PO SCH (21:25)
[2021-03-14] MEDS: SODIUM CHLORIDE 1,000 ML IV SCH (22:19)
[2021-03-15] MEDS: diazePAM 5 MG TABLET PO SCH ×3 (06:53→21:09)
[2021-03-15] MEDS: INSULIN SLIDING SCALE (NOVOLOG) 1 VIAL SQ SCH ×4 (06:54→21:10)
[2021-03-15 12:25] LABS: ALBUMIN 3.8 g/dl (3.4-5.0); BILIRUBIN,TOTAL 1.6 mg/dl (0.2-1); CALCIUM 8.5 mg/dl (8.5-10); CREATININE 0.6 mg/dl (0.55-1.3); TOT PROT 6.5 g/dl (6.4-8.2)
[2021-03-15 12:56] LABS: BASO % 0.4 % (0-2.0); EOS % 3.2 % (0-4.5); HEMATOCRIT 40.8 % (35.4-49); HEMOGLOBIN 14.6 GM/dL (11.7-16.9); LYMPH % 22.6 % (8-40); MCH 32.3 pg (25.7-33.7); MCHC 35.7 g/dl (32.0-35.9); MEAN CELL VOLUME 90.4 fl (80-96); MEAN PLT VOLUME 7.7 fl (7.5-11.1); MONO % 9.8 % (3.8-10.2); PLATELET COUNT 54 10^3/uL (134-434); RBC 4.51 M/mm3 (4.00-5.60); RDW 14.1 % (11.9-15.9); WHITE BLOOD COUNT 2.6 K/mm3 (4.0-10.0)
[2021-03-15] MEDS: POTASSIUM CHLORIDE TABS 20 MEQ TABLET.ER (FP) PO SCH ×2 (14:19→19:44)
[2021-03-15] MEDS: FOLIC ACID 1 MG TABLET (FP) PO SCH (17:46)
[2021-03-15] MEDS: THIAMINE HCL 100 MG TABLET (FP) PO SCH (17:46)
[2021-03-15] MEDS: ENOXAPARIN NA (PORCINE) 40 MG/0.4 ML DISP.SYRIN SQ SCH (17:47)
[2021-03-15] MEDS: ATORVASTATIN CA 40 MG TABLET (FP) PO SCH (21:09)
[2021-03-15] MEDS: SODIUM CHLORIDE 1,000 ML IV SCH (21:11)
[2021-03-16] MEDS: diazePAM 5 MG TABLET PO SCH ×2 (06:11→18:40)
[2021-03-16] MEDS: INSULIN SLIDING SCALE (NOVOLOG) 1 VIAL SQ SCH ×4 (06:12→21:34)
[2021-03-16] MEDS: ENOXAPARIN NA (PORCINE) 40 MG/0.4 ML DISP.SYRIN SQ SCH (09:30)
[2021-03-16] MEDS: THIAMINE HCL 100 MG TABLET (FP) PO SCH (09:30)
[2021-03-16] MEDS: FOLIC ACID 1 MG TABLET (FP) PO SCH (09:30)
[2021-03-16] MEDS: SODIUM CHLORIDE 1,000 ML IV SCH ×2 (09:55→21:31)
[2021-03-16 10:27] LABS: ALBUMIN 4.1 g/dl (3.4-5.0); CALCIUM 9.1 mg/dl (8.5-10); CREATININE 0.5 mg/dl (0.55-1.3); MAGNESIUM 2.1 mg/dL (1.8-2.4); TOT PROT 6.7 g/dl (6.4-8.2)
[2021-03-16 11:33] LABS: BASO % 0.8 % (0-2.0); EOS % 2.8 % (0-4.5); HEMATOCRIT 43.4 % (35.4-49); HEMOGLOBIN 15.2 GM/dL (11.7-16.9); LYMPH % 23.4 % (8-40); MCH 31.9 pg (25.7-33.7); MEAN CELL VOLUME 91.3 fl (80-96); MEAN PLT VOLUME 8.5 fl (7.5-11.1); MONO % 9.6 % (3.8-10.2); NEUT % 63.4 % (42.8-82.8); PLATELET COUNT 63 10^3/uL (134-434); RBC 4.76 M/mm3 (4.00-5.60); RDW 13.9 % (11.9-15.9); WHITE BLOOD COUNT 2.9 K/mm3 (4.0-10.0)
[2021-03-16] MEDS: ATORVASTATIN CA 40 MG TABLET (FP) PO SCH (21:31)
[2021-03-16 22:56] VITALS: PULSE 82; TEMP 98
[2021-03-17] MEDS ORDERED: diazePAM 5 MG TABLET PO ONE (06:00)
[2021-03-17] MEDS: INSULIN SLIDING SCALE (NOVOLOG) 1 VIAL SQ SCH (06:45)
[2021-03-17 06:48] VITALS: BP 127/84
[2021-03-17] MEDS: ENOXAPARIN NA (PORCINE) 40 MG/0.4 ML DISP.SYRIN SQ SCH (09:31)
[2021-03-17] MEDS: THIAMINE HCL 100 MG TABLET (FP) PO SCH (09:31)
[2021-03-17] MEDS: FOLIC ACID 1 MG TABLET (FP) PO SCH (09:31)
== END 2021-03-17 09:00 | disposition home or self-care (01) | DRG 775 ==
LOC: JER 14:25 → JERBED 18:12 → FM/S 03-14 17:02
PROVIDERS: ADMIT Internal Medicine; ATTEND Nurse Practitioner Family
DX: F10.230 Alcohol dependence with withdrawal, uncomplicated (principal); N17.9 Acute kidney failure, unspecified; Z79.84 Long term (current) use of oral hypoglycemic drugs; E87.6 Hypokalemia; R11.2 Nausea with vomiting, unspecified; E11.9 Type 2 diabetes mellitus without complications; K70.10 Alcoholic hepatitis without ascites; E78.5 Hyperlipidemia, unspecified; R07.89 Other chest pain; R74.01 Elevation of levels of liver transaminase levels; D69.6 Thrombocytopenia, unspecified
CPT/HCPCS: 36415; 71046-TC-FY; 80048; 80053; 80061; 80307; 81003; 82010; 82550; 82803; 82962; 83036; 83605; 83690; 83735; 84100; 84484; 85025; 93005; 93010; 99285-25; C9803; J1644; U0003; U0005

== ENCOUNTER 2021-04-21 09:28 | Inpatient (IN) | payer OTHER ==
[2021-04-21 10:15] VITALS: BMI 28.3
[2021-04-21] MEDS ORDERED: MAGNESIUM CITRATE 300 ML BOTTLE PO PRN (10:18)
[2021-04-21] MEDS ORDERED: MAGNESIUM HYDROX 2400MG/30ML ORAL SUSPENSION 30 ML CUP PO PRN (10:18)
[2021-04-21] MEDS ORDERED: IBUPROFEN 400 MG TABLET (FP) PO PRN (10:18)
[2021-04-21] MEDS ORDERED: MENTHOL/PHENOL 1 EACH UD MM PRN (10:18)
[2021-04-21] MEDS ORDERED: DICYCLOMINE HCL 10 MG CAPSULE PO PRN (10:18)
[2021-04-21] MEDS ORDERED: BISMUTH SUBSALICYLATE 524 MG/30 ML PO PRN (10:18)
[2021-04-21] MEDS ORDERED: ONDANSETRON *ODT* 4 MG TABLET SL PRN (10:18)
[2021-04-21] MEDS ORDERED: MAG HYDROX/AL HYDROX/SIMETH 30 ML UNIT-DOSE CUP PO PRN (10:18)
[2021-04-21] MEDS ORDERED: chlordiazePOXIDE HCL 25 MG CAPSULE PO PRN (10:19)
[2021-04-21] MEDS ORDERED: TRIMETHOBENZAMIDE HCL 200MG/2ML INJ IM ONE (10:20)
[2021-04-21] MEDS ORDERED: METOPROLOL TARTRATE 25 MG TABLET (FP) PO ONE (10:29)
[2021-04-21] MEDS: chlordiazePOXIDE HCL 25 MG CAPSULE PO SCH ×3 (12:23→22:10)
[2021-04-21] MEDS: metFORMIN HCL 500 MG TABLET (FP) PO SCH (17:00)
[2021-04-21] MEDS ORDERED: INSULIN (NOVOLOG) ASPART 100 UNITS/ML 10ML VIAL ONE (17:37)
[2021-04-21] MEDS: INSULIN SLIDING SCALE (NOVOLOG) 1 VIAL SQ SCH (18:30)
[2021-04-21] MEDS: THIAMINE HCL 100 MG TABLET (FP) PO SCH (22:10)
[2021-04-21] MEDS: MELATONIN 5 MG TABLETS PO SCH (22:11)
[2021-04-22] MEDS: chlordiazePOXIDE HCL 25 MG CAPSULE PO SCH ×2 (05:36→10:20)
[2021-04-22] MEDS: metFORMIN HCL 500 MG TABLET (FP) PO SCH ×2 (07:58→17:38)
[2021-04-22] MEDS: INSULIN SLIDING SCALE (NOVOLOG) 1 VIAL SQ SCH ×2 (08:00→17:39)
[2021-04-22] MEDS ORDERED: INSULIN (NOVOLOG) ASPART 100 UNITS/ML 10ML VIAL ONE ×2 (08:03→17:24)
[2021-04-22] MEDS: PRENATAL VITAMINS W/ FOLIC ACID TABLET (FP) PO SCH (10:20)
[2021-04-22 10:29] LABS: HEMATOCRIT 42.9 % (35.4-49); HEMOGLOBIN 15.3 GM/dL (11.7-16.9); MCH 32.3 pg (25.7-33.7); MCHC 35.6 g/dl (32.0-35.9); MEAN CELL VOLUME 90.6 fl (80-96); MEAN PLT VOLUME 7.7 fl (7.5-11.1); PLATELET COUNT 47 10^3/uL (134-434); RBC 4.74 M/mm3 (4.00-5.60); RDW 14.3 % (11.9-15.9); WHITE BLOOD COUNT 2.9 K/mm3 (4.0-10.0)
[2021-04-22 10:30] LABS: ALBUMIN 3.7 g/dl (3.4-5.0); CALCIUM 8.7 mg/dL (8.5-10.1)
[2021-04-22 10:31] LABS: BLOOD UREA NITROGEN 11.4 mg/dL (7-18)
[2021-04-22 10:34] LABS: CREATININE 0.7 mg/dL (0.55-1.3)
[2021-04-22 10:35] LABS: BILIRUBIN,TOTAL 3.1 mg/dL (0.2-1); TOT PROT 7.1 g/dl (6.4-8.2)
[2021-04-22] MEDS ORDERED: POTASSIUM CHLORIDE ORAL LIQUID 20 MEQ/15 ML PO ONE (14:30)
[2021-04-22] MEDS: propRANOLol HCL 10 MG TABLET PO SCH ×2 (15:43→22:24)
[2021-04-22] MEDS: LORazepam 1 MG TABLET PO SCH ×2 (17:39→22:23)
[2021-04-22] MEDS: AMOXICILLIN 500 MG CAPSULE (FP) PO SCH (22:23)
[2021-04-22] MEDS: THIAMINE HCL 100 MG TABLET (FP) PO SCH (22:24)
[2021-04-22] MEDS: MELATONIN 5 MG TABLETS PO SCH (22:24)
[2021-04-23] MEDS ORDERED: chlordiazePOXIDE HCL 25 MG CAPSULE PO SCH (05:00)
[2021-04-23] MEDS: LORazepam 0.5 MG TABLET PO SCH ×4 (05:35→23:07)
[2021-04-23] MEDS: propRANOLol HCL 10 MG TABLET PO SCH ×3 (05:39→22:15)
[2021-04-23] MEDS: metFORMIN HCL 500 MG TABLET (FP) PO SCH ×2 (06:31→17:54)
[2021-04-23] MEDS: INSULIN SLIDING SCALE (NOVOLOG) 1 VIAL SQ SCH ×2 (08:00→17:58)
[2021-04-23] MEDS: hydrOXYzine PAMOATE 25 MG CAPSULE (FP) PO PRN ×2 (10:10→14:59)
[2021-04-23] MEDS: PRENATAL VITAMINS W/ FOLIC ACID TABLET (FP) PO SCH (10:10)
[2021-04-23] MEDS: AMOXICILLIN 500 MG CAPSULE (FP) PO SCH ×2 (10:11→22:15)
[2021-04-23] MEDS: METHOCARBAMOL 500 MG TABLET PO PRN (10:11)
[2021-04-23 11:26] LABS: ALBUMIN 4.1 g/dl (3.4-5.0)
[2021-04-23 11:30] LABS: BILIRUBIN,TOTAL 3.1 mg/dL (0.2-1); TOT PROT 7.7 g/dl (6.4-8.2)
[2021-04-23 11:31] LABS: BILIRUBIN,DIRECT 0.9 mg/dL (0.0-0.2)
[2021-04-23] MEDS ORDERED: POTASSIUM CHLORIDE ORAL LIQUID 20 MEQ/15 ML PO ONE (13:21)
[2021-04-23] MEDS ORDERED: INSULIN (NOVOLOG) ASPART 100 UNITS/ML 10ML VIAL ONE (17:49)
[2021-04-23] MEDS: THIAMINE HCL 100 MG TABLET (FP) PO SCH (22:15)
[2021-04-23] MEDS: MELATONIN 5 MG TABLETS PO SCH (22:17)
[2021-04-24] MEDS ORDERED: chlordiazePOXIDE HCL 10 MG CAPSULE PO PRN
[2021-04-24] MEDS ORDERED: chlordiazePOXIDE HCL 10 MG CAPSULE PO SCH (05:00)
[2021-04-24] MEDS: LORazepam 0.5 MG TABLET PO SCH ×3 (05:33→22:29)
[2021-04-24] MEDS: propRANOLol HCL 10 MG TABLET PO SCH ×3 (05:36→22:28)
[2021-04-24] MEDS: metFORMIN HCL 500 MG TABLET (FP) PO SCH ×2 (06:55→17:02)
[2021-04-24] MEDS: INSULIN SLIDING SCALE (NOVOLOG) 1 VIAL SQ SCH ×2 (08:04→17:02)
[2021-04-24] MEDS: AMOXICILLIN 500 MG CAPSULE (FP) PO SCH ×2 (10:16→22:28)
[2021-04-24] MEDS: hydrOXYzine PAMOATE 25 MG CAPSULE (FP) PO PRN (10:16)
[2021-04-24] MEDS: PRENATAL VITAMINS W/ FOLIC ACID TABLET (FP) PO SCH (10:16)
[2021-04-24 11:54] LABS: ALBUMIN 3.8 g/dl (3.4-5.0)
[2021-04-24 11:57] LABS: BILIRUBIN,DIRECT 0.8 mg/dL (0.0-0.2)
[2021-04-24 11:59] LABS: BILIRUBIN,TOTAL 2.1 mg/dL (0.2-1)
[2021-04-24] MEDS: THIAMINE HCL 100 MG TABLET (FP) PO SCH (22:28)
[2021-04-24] MEDS: MELATONIN 5 MG TABLETS PO SCH (22:28)
[2021-04-25] MEDS ORDERED: chlordiazePOXIDE HCL 10 MG CAPSULE PO SCH (05:00)
[2021-04-25] MEDS: LORazepam 0.5 MG TABLET PO SCH ×2 (06:01→17:34)
[2021-04-25] MEDS: propRANOLol HCL 10 MG TABLET PO SCH ×3 (06:01→22:15)
[2021-04-25] MEDS: metFORMIN HCL 500 MG TABLET (FP) PO SCH ×2 (06:01→16:57)
[2021-04-25] MEDS: INSULIN SLIDING SCALE (NOVOLOG) 1 VIAL SQ SCH ×2 (08:07→17:03)
[2021-04-25] MEDS: AMOXICILLIN 500 MG CAPSULE (FP) PO SCH ×2 (10:09→22:15)
[2021-04-25] MEDS: PRENATAL VITAMINS W/ FOLIC ACID TABLET (FP) PO SCH (10:10)
[2021-04-25] MEDS: METHOCARBAMOL 500 MG TABLET PO PRN (10:11)
[2021-04-25] MEDS: hydrOXYzine PAMOATE 25 MG CAPSULE (FP) PO PRN (14:40)
[2021-04-25] MEDS ORDERED: INSULIN (NOVOLOG) ASPART 100 UNITS/ML 10ML VIAL ONE (16:57)
[2021-04-25] MEDS: THIAMINE HCL 100 MG TABLET (FP) PO SCH (22:15)
[2021-04-25] MEDS: MELATONIN 5 MG TABLETS PO SCH (22:15)
[2021-04-26] MEDS ORDERED: chlordiazePOXIDE HCL 10 MG CAPSULE PO ONE (05:00)
[2021-04-26] MEDS ORDERED: LORazepam 0.5 MG TABLET PO ONE (06:00)
[2021-04-26] MEDS: metFORMIN HCL 500 MG TABLET (FP) PO SCH (06:11)
[2021-04-26] MEDS ORDERED: INSULIN (NOVOLOG) ASPART 100 UNITS/ML 10ML VIAL ONE (06:49)
[2021-04-26] MEDS: INSULIN SLIDING SCALE (NOVOLOG) 1 VIAL SQ SCH (06:49)
[2021-04-26] MEDS: propRANOLol HCL 10 MG TABLET PO SCH (07:22)
[2021-04-26 09:58] VITALS: BP 107/72; PULSE 92; TEMP 97.8
== END 2021-04-26 09:37 | disposition home or self-care (01) | DRG 775 ==
LOC: YASAS 09:28 → Y6N 10:52
PROVIDERS: ADMIT Allergy & Immunology; ATTEND Allergy & Immunology
PROC: HZ2ZZZZ Detoxification Services for Substance Abuse Treatment (ICD-10-PCS; principal; 2021-04-21)
DX: F10.230 Alcohol dependence with withdrawal, uncomplicated (principal); E11.9 Type 2 diabetes mellitus without complications; Z79.84 Long term (current) use of oral hypoglycemic drugs; R74.01 Elevation of levels of liver transaminase levels
CPT/HCPCS: 36415; 80053; 80076; 80307; 82962; 83036; 84132; 85025; 85027; 86780; 86803; 93005; 93010; 96374; 96375; 99284-25; C9803; U0003; U0005

== ENCOUNTER 2021-07-20 00:32 | Inpatient (IN) | payer OTHER ==
[2021-07-20] MEDS ORDERED: MAG HYDROX/AL HYDROX/SIMETH 30 ML UNIT-DOSE CUP PO ONE (01:17)
[2021-07-20] MEDS ORDERED: ONDANSETRON 4 MG/2 ML VIAL IVPUSH ONE (01:17)
[2021-07-20] MEDS ORDERED: LIDOCAINE VISCOUS 2% ORAL/TOP 15 ML UNIT-DOSE CUP MM ONE (01:17)
[2021-07-20] MEDS ORDERED: FAMOTIDINE 20 MG/50 ML IVPB 20 MG/50 ML MG IVPB ONE ×2 (01:18→01:34)
[2021-07-20] MEDS ORDERED: SODIUM CHLORIDE 500 ML IV STA (01:32)
[2021-07-20] MEDS ORDERED: LIDOCAINE VISCOUS 2% ORAL/TOP 15 ML UNIT-DOSE CUP ONE (01:33)
[2021-07-20] MEDS ORDERED: ONDANSETRON 4 MG/2 ML VIAL ONE (01:33)
[2021-07-20] MEDS ORDERED: MAG HYDROX/AL HYDROX/SIMETH 30 ML UNIT-DOSE CUP ONE (01:33)
[2021-07-20 02:07] LABS: BASO % 0.1 % (0-2.0); EOS % 0.1 % (0-4.5); HEMATOCRIT 42.7 % (35.4-49); HEMOGLOBIN 15.2 GM/dL (11.7-16.9); LYMPH % 4.9 % (8-40); MCH 32.2 pg (25.7-33.7); MCHC 35.6 g/dl (32.0-35.9); MEAN CELL VOLUME 90.5 fl (80-96); MEAN PLT VOLUME 8.3 fl (7.5-11.1); MONO % 8.5 % (3.8-10.2); NEUT % 86.4 % (42.8-82.8); PLATELET COUNT 51 10^3/uL (134-434); RBC 4.72 M/mm3 (4.00-5.60); RDW 14.1 % (11.9-15.9); WHITE BLOOD COUNT 5.2 K/mm3 (4.0-10.0)
[2021-07-20 02:29] LABS: CREATININE 0.6 mg/dL (0.55-1.3)
[2021-07-20 02:32] LABS: BILIRUBIN,TOTAL 2.4 mg/dL (0.2-1); TOT PROT 7.8 g/dl (6.4-8.2)
[2021-07-20] MEDS ORDERED: chlordiazePOXIDE HCL 25 MG CAPSULE PO ONE (03:02)
[2021-07-20] MEDS ORDERED: METOCLOPRAMIDE HCL INJECTION 10 MG/2 ML VIAL IVPUSH ONE (03:02)
[2021-07-20] MEDS ORDERED: SODIUM CHLORIDE 0.9% 500 ML INFUS.BAG IV ONE (03:02)
[2021-07-20] MEDS ORDERED: MAGNESIUM SULF 50% (8.12 MEQ/2 ML-1 GM VIAL) IVPB ONE (03:03)
[2021-07-20] MEDS ORDERED: POTASSIUM CHLORIDE ORAL LIQUID 20 MEQ/15 ML PO ONE (03:10)
[2021-07-20] MEDS ORDERED: chlordiazePOXIDE HCL 25 MG CAPSULE ONE ×2 (03:17→10:11)
[2021-07-20] MEDS ORDERED: POTASSIUM CHLORIDE ORAL LIQUID 20 MEQ/15 ML ONE (03:17)
[2021-07-20] MEDS ORDERED: METOCLOPRAMIDE HCL INJECTION 10 MG/2 ML VIAL ONE (03:17)
[2021-07-20] MEDS ORDERED: MAGNESIUM SULFATE IN WATER 2 GM/50 ML IVPB IVPB ONE (03:18)
[2021-07-20] MEDS ORDERED: chlordiazePOXIDE HCL 25 MG CAPSULE PO PRN (05:55)
[2021-07-20] MEDS: LACTATED RINGERS SOLUTION 1,000 ML/1,000 ML INFUS.BAG IV SCH (06:30)
[2021-07-20] MEDS: INSULIN SLIDING SCALE (NOVOLOG) 1 VIAL SQ SCH ×4 (07:17→22:35)
[2021-07-20] MEDS ORDERED: THIAMINE HCL 200 MG/2 ML VIAL ONE (08:10)
[2021-07-20] MEDS ORDERED: PANTOPRAZOLE SODIUM 40 MG/100 ML BAG IVPB ONE (08:10)
[2021-07-20] MEDS: PANTOPRAZOLE SODIUM 40 MG VIAL IVPUSH SCH (09:10)
[2021-07-20] MEDS: chlordiazePOXIDE HCL 25 MG CAPSULE PO SCH ×3 (10:51→22:37)
[2021-07-20] MEDS: THIAMINE HCL 200 MG/2 ML VIAL IVPB SCH (10:51)
[2021-07-20 12:37] LABS: BASO % 0.2 % (0-2.0); EOS % 0.2 % (0-4.5); HEMATOCRIT 41.2 % (35.4-49); HEMOGLOBIN 14.5 GM/dL (11.7-16.9); LYMPH % 7.7 % (8-40); MCH 32.1 pg (25.7-33.7); MCHC 35.3 g/dl (32.0-35.9); MONO % 9.8 % (3.8-10.2); NEUT % 82.1 % (42.8-82.8); PLATELET COUNT 53 10^3/uL (134-434); RBC 4.52 M/mm3 (4.00-5.60); RDW 14.3 % (11.9-15.9)
[2021-07-20 12:45] LABS: INR 1.03 (0.83-1.09); PROTHROMBIN TIME (PATIENT) 11.9 SEC (9.7-13.0)
[2021-07-20 12:56] LABS: CALCIUM 8.2 mg/dL (8.5-10.1)
[2021-07-20 12:58] LABS: ALBUMIN 3.7 g/dl (3.4-5.0); BLOOD UREA NITROGEN 9.7 mg/dL (7-18); MAGNESIUM 2.6 mg/dL (1.8-2.4)
[2021-07-20 13:00] LABS: CREATININE 0.5 mg/dL (0.55-1.3)
[2021-07-20 13:02] LABS: BILIRUBIN,TOTAL 2.8 mg/dL (0.2-1); TOT PROT 7.1 g/dl (6.4-8.2)
[2021-07-20 13:17] VITALS: BMI 27.6
[2021-07-20] MEDS ORDERED: CALCIUM GLUC IN NACL, ISO-OSM 1 GM/50 ML BAG IVPB ONE (14:00)
[2021-07-20] MEDS ORDERED: POTASSIUM PHOSPHATE 30 MM in SODIUM CHLORIDE 500 ML IVPB ONE (15:00)
[2021-07-20] MEDS: METOCLOPRAMIDE HCL INJECTION 10 MG/2 ML VIAL IVPUSH PRN (21:45)
[2021-07-21] MEDS: chlordiazePOXIDE HCL 25 MG CAPSULE PO SCH ×4 (06:03→22:37)
[2021-07-21] MEDS: INSULIN SLIDING SCALE (NOVOLOG) 1 VIAL SQ SCH ×4 (06:04→22:42)
[2021-07-21] MEDS: METOCLOPRAMIDE HCL INJECTION 10 MG/2 ML VIAL IVPUSH PRN ×2 (09:37→22:38)
[2021-07-21] MEDS: PANTOPRAZOLE SODIUM 40 MG VIAL IVPUSH SCH (09:37)
[2021-07-21] MEDS: THIAMINE HCL 200 MG/2 ML VIAL IVPB SCH (09:37)
[2021-07-21] MEDS: LACTATED RINGERS SOLUTION 1,000 ML/1,000 ML INFUS.BAG IV SCH (13:08)
[2021-07-22] MEDS: chlordiazePOXIDE HCL 25 MG CAPSULE PO SCH ×3 (05:57→16:49)
[2021-07-22] MEDS: LACTATED RINGERS SOLUTION 1,000 ML/1,000 ML INFUS.BAG IV SCH (05:58)
[2021-07-22] MEDS: INSULIN SLIDING SCALE (NOVOLOG) 1 VIAL SQ SCH ×3 (06:03→16:53)
[2021-07-22 08:52] LABS: BASO % 0.6 % (0-2.0); EOS % 1.1 % (0-4.5); HEMATOCRIT 40.1 % (35.4-49); LYMPH % 13.7 % (8-40); MCH 32.2 pg (25.7-33.7); MCHC 34.9 g/dl (32.0-35.9); MEAN CELL VOLUME 92.3 fl (80-96); MEAN PLT VOLUME 7.9 fl (7.5-11.1); MONO % 14.4 % (3.8-10.2); NEUT % 70.2 % (42.8-82.8); PLATELET COUNT 82 10^3/uL (134-434); RBC 4.35 M/mm3 (4.00-5.60); RDW 14.2 % (11.9-15.9)
[2021-07-22] MEDS: PANTOPRAZOLE SODIUM 40 MG VIAL IVPUSH SCH (08:59)
[2021-07-22] MEDS: THIAMINE HCL 200 MG/2 ML VIAL IVPB SCH (08:59)
[2021-07-22 09:28] LABS: ALBUMIN 3.2 g/dl (3.4-5.0); CALCIUM 8.2 mg/dL (8.5-10.1)
[2021-07-22 09:29] LABS: BLOOD UREA NITROGEN 6.7 mg/dL (7-18)
[2021-07-22 09:31] LABS: CREATININE 0.6 mg/dL (0.55-1.3)
[2021-07-22 09:33] LABS: BILIRUBIN,TOTAL 1.8 mg/dL (0.2-1); TOT PROT 6.4 g/dl (6.4-8.2)
[2021-07-22] MEDS ORDERED: PANTOPRAZOLE 20 MG TABLET PO SCH (10:00)
[2021-07-22] MEDS ORDERED: PANTOPRAZOLE 40 MG TABLET PO SCH (10:00)
[2021-07-22] MEDS ORDERED: INSULIN (LEVEMIR) 100 UNITS/ML UNITS SQ SCH (10:45)
[2021-07-22 14:03] VITALS: BP 138/91; PULSE 120; TEMP 98.4
[2021-07-22] MEDS ORDERED: POTASSIUM CHLORIDE TABS 20 MEQ TABLET.ER (FP) PO ONE (16:34)
[2021-07-23] MEDS ORDERED: chlordiazePOXIDE HCL 10 MG CAPSULE PO PRN
[2021-07-23] MEDS ORDERED: chlordiazePOXIDE HCL 10 MG CAPSULE PO SCH (05:00)
[2021-07-24] MEDS ORDERED: chlordiazePOXIDE HCL 10 MG CAPSULE PO SCH (05:00)
[2021-07-25] MEDS ORDERED: chlordiazePOXIDE HCL 10 MG CAPSULE PO ONE (05:00)
== END 2021-07-22 18:08 | disposition left against medical advice (07) | DRG 241 ==
LOC: JER 00:32 → JERBED 03:15 → J4W 11:31 → UNDODISIN 07-22 18:05
PROVIDERS: ADMIT Internal Medicine; ATTEND Internal Medicine
DX: K29.20 Alcoholic gastritis without bleeding (principal); E11.65 Type 2 diabetes mellitus with hyperglycemia; E87.1 Hypo-osmolality and hyponatremia; D69.6 Thrombocytopenia, unspecified; R16.2 Hepatomegaly with splenomegaly, not elsewhere classified; E87.6 Hypokalemia; F10.130 Alcohol abuse with withdrawal, uncomplicated; R74.01 Elevation of levels of liver transaminase levels; K70.10 Alcoholic hepatitis without ascites; R06.6 Hiccough; K59.00 Constipation, unspecified; K21.9 Gastro-esophageal reflux disease without esophagitis; E78.5 Hyperlipidemia, unspecified; R00.0 Tachycardia, unspecified; K76.0 Fatty (change of) liver, not elsewhere classified; Z53.29 Procedure and treatment not carried out because of patient's decision for other reasons; Z79.84 Long term (current) use of oral hypoglycemic drugs
CPT/HCPCS: 36415; 71045-TC-FY; 71260-TC; 74018-TC-FY; 74177-TC; 80053; 82105; 82962; 83036; 83605; 83690; 83735; 84100; 84478; 84484; 85025; 85610; 93005; 93010; 99285-25; C9803-CS; U0003; U0005

== ENCOUNTER 2022-03-02 02:09 | Inpatient (IN) | payer OTHER ==
[2022-03-02 02:44] VITALS: BMI 25.8
[2022-03-02] MEDS ORDERED: IBUPROFEN 400 MG TABLET (FP) PO PRN (03:36)
[2022-03-02] MEDS ORDERED: MAG HYDROX/AL HYDROX/SIMETH 30 ML UNIT-DOSE CUP PO PRN (03:36)
[2022-03-02] MEDS ORDERED: DICYCLOMINE HCL 10 MG CAPSULE PO PRN (03:36)
[2022-03-02] MEDS ORDERED: POLYETHYLENE GLYCOL (HEALTHYLAX) 3350 17 GM PACKET PO PRN (03:36)
[2022-03-02] MEDS ORDERED: BENZOCAINE/MENTHOL (CHLORASEPTIC ) LOZENGE MM PRN (03:36)
[2022-03-02] MEDS ORDERED: LOPERAMIDE HCL 2 MG CAPSULE PO PRN (03:36)
[2022-03-02] MEDS ORDERED: IBUPROFEN 600 MG TABLET (FP) PO PRN (03:36)
[2022-03-02] MEDS ORDERED: MAGNESIUM HYDROX 2400MG/30ML ORAL SUSPENSION 30 ML CUP PO PRN (03:36)
[2022-03-02] MEDS ORDERED: BISMUTH SUBSALICYLATE 524 MG/30 ML PO PRN (03:36)
[2022-03-02] MEDS ORDERED: NALOXONE HCL (KLOXXADO) 8 MG SPRAY NS PRN (03:36)
[2022-03-02] MEDS ORDERED: ACETAMINOPHEN 325 MG TABLET (FP) PO PRN ×2 (03:36)
[2022-03-02] MEDS ORDERED: LORazepam 1 MG TABLET PO PRN (03:36)
[2022-03-02] MEDS ORDERED: ONDANSETRON *ODT* 4 MG TABLET SL PRN (03:36)
[2022-03-02] MEDS: LORazepam 2 MG TABLET PO SCH ×4 (04:33→22:36)
[2022-03-02] MEDS: PRENATAL VITAMINS W/ FOLIC ACID TABLET (FP) PO SCH (10:06)
[2022-03-02] MEDS: METHOCARBAMOL 500 MG TABLET PO PRN (10:06)
[2022-03-02] MEDS: metFORMIN HCL 500 MG TABLET (FP) PO SCH (17:25)
[2022-03-02] MEDS: THIAMINE HCL 100 MG TABLET (FP) PO SCH (22:35)
[2022-03-02] MEDS: MELATONIN 5 MG TABLETS PO SCH (22:36)
[2022-03-03] MEDS: LORazepam 1 MG TABLET PO SCH ×4 (05:00→22:15)
[2022-03-03] MEDS: metFORMIN HCL 500 MG TABLET (FP) PO SCH ×2 (06:28→17:27)
[2022-03-03] MEDS: INSULIN (LEVEMIR) 100 UNITS/ML UNITS SQ SCH (06:52)
[2022-03-03 10:02] LABS: ALBUMIN 3.7 g/dl (3.4-5.0); BLOOD UREA NITROGEN 10.7 mg/dL (7-18); CALCIUM 8.5 mg/dL (8.5-10.1); HEMATOCRIT 39.7 % (35.4-49); MCH 31.3 pg (25.7-33.7); MCHC 35.3 g/dl (32.0-35.9); MEAN CELL VOLUME 88.8 fl (80-96); MEAN PLT VOLUME 8.4 fl (7.5-11.1); PLATELET COUNT 91 10^3/uL (134-434); RBC 4.47 M/mm3 (4.00-5.60); RDW 13.3 % (11.9-15.9); WHITE BLOOD COUNT 3.9 K/mm3 (4.0-10.0)
[2022-03-03 10:06] LABS: BILIRUBIN,TOTAL 1.9 mg/dL (0.2-1); CREATININE 0.8 mg/dL (0.55-1.3)
[2022-03-03] MEDS: PRENATAL VITAMINS W/ FOLIC ACID TABLET (FP) PO SCH (10:25)
[2022-03-03] MEDS: METHOCARBAMOL 500 MG TABLET PO PRN (10:26)
[2022-03-03] MEDS: PANTOPRAZOLE 20 MG TABLET PO SCH (10:27)
[2022-03-03] MEDS: THIAMINE HCL 100 MG TABLET (FP) PO SCH (22:15)
[2022-03-03] MEDS: ATORVASTATIN CA 20 MG TABLET (FP) PO SCH (22:15)
[2022-03-03] MEDS: MELATONIN 5 MG TABLETS PO SCH (22:18)
[2022-03-04] MEDS ORDERED: LORazepam 0.5 MG TABLET PO PRN
[2022-03-04] MEDS: LORazepam 0.5 MG TABLET PO SCH ×4 (04:57→22:25)
[2022-03-04] MEDS: metFORMIN HCL 500 MG TABLET (FP) PO SCH ×2 (06:41→16:51)
[2022-03-04] MEDS: INSULIN (LEVEMIR) 100 UNITS/ML UNITS SQ SCH (06:48)
[2022-03-04] MEDS: METHOCARBAMOL 500 MG TABLET PO PRN (10:25)
[2022-03-04] MEDS: PANTOPRAZOLE 20 MG TABLET PO SCH (10:25)
[2022-03-04] MEDS: PRENATAL VITAMINS W/ FOLIC ACID TABLET (FP) PO SCH (10:25)
[2022-03-04] MEDS: MELATONIN 5 MG TABLETS PO SCH (22:23)
[2022-03-04] MEDS: ATORVASTATIN CA 20 MG TABLET (FP) PO SCH (22:23)
[2022-03-04] MEDS: THIAMINE HCL 100 MG TABLET (FP) PO SCH (22:23)
[2022-03-05] MEDS ORDERED: LORazepam 0.5 MG TABLET PO ONE (05:00)
[2022-03-05] MEDS: metFORMIN HCL 500 MG TABLET (FP) PO SCH (06:16)
[2022-03-05] MEDS: INSULIN (LEVEMIR) 100 UNITS/ML UNITS SQ SCH (07:02)
[2022-03-05 07:52] VITALS: RESP 18
[2022-03-05] MEDS: PRENATAL VITAMINS W/ FOLIC ACID TABLET (FP) PO SCH (09:15)
[2022-03-05] MEDS: PANTOPRAZOLE 20 MG TABLET PO SCH (09:15)
[2022-03-05 09:34] VITALS: BP 140/85; PULSE 99; TEMP 97.6
== END 2022-03-05 09:25 | disposition home or self-care (01) | DRG 775 ==
LOC: YASAS 02:09 → Y6N 03:53
PROVIDERS: ADMIT Allergy & Immunology; ATTEND Surgery
PROC: HZ2ZZZZ Detoxification Services for Substance Abuse Treatment (ICD-10-PCS; principal; 2022-03-02)
DX: F10.230 Alcohol dependence with withdrawal, uncomplicated (principal); K70.10 Alcoholic hepatitis without ascites; E11.9 Type 2 diabetes mellitus without complications; Z79.4 Long term (current) use of insulin; Z87.19 Personal history of other diseases of the digestive system
CPT/HCPCS: 36415; 71045-TC-FY; 76705-TC; 80053; 82010; 82803; 82962; 83690; 83735; 85025; 85027; 86780; 93005; 93010; 99282-25; C9803-CS; U0003; U0005

== ENCOUNTER 2022-03-24 01:27 | Observation (INO) | payer OTHER ==
[2022-03-24 01:54] VITALS: BMI 28.0
[2022-03-24] MEDS ORDERED: ONDANSETRON 4 MG/2 ML VIAL IVPUSH ONE ×2 (02:43→08:37)
[2022-03-24] MEDS ORDERED: diazePAM CARPU-JECT 10 MG/2 ML DISP.SYRIN IVPUSH ONE (02:43)
[2022-03-24] MEDS ORDERED: FAMOTIDINE 20 MG/50 ML IVPB 20 MG/50 ML MG IVPB ONE ×2 (02:43→02:55)
[2022-03-24] MEDS ORDERED: SODIUM CHLORIDE 0.9% 500 ML INFUS.BAG IV ONE (02:44)
[2022-03-24] MEDS ORDERED: ONDANSETRON 4 MG/2 ML VIAL ONE ×2 (02:55→08:51)
[2022-03-24] MEDS ORDERED: diazePAM CARPU-JECT 10 MG/2 ML DISP.SYRIN ONE (02:57)
[2022-03-24 03:08] LABS: VENOUS BASE EXCESS 1.3 mmol/L (-2-2); VENOUS O2 SATURATION 94.6 % (70-80); VENOUS PH 7.44 (7.310-7.410)
[2022-03-24 03:39] LABS: CALCIUM 9.4 mg/dL (8.5-10.1)
[2022-03-24 03:40] LABS: ALBUMIN 4.4 g/dl (3.4-5.0); BLOOD UREA NITROGEN 7.8 mg/dL (7-18)
[2022-03-24 03:43] LABS: CREATININE 0.8 mg/dL (0.55-1.3)
[2022-03-24 03:44] LABS: BILIRUBIN,TOTAL 1.8 mg/dL (0.2-1)
[2022-03-24 03:45] LABS: TOT PROT 8.4 g/dl (6.4-8.2)
[2022-03-24 04:22] LABS: BASO % 0.4 % (0-2.0); EOS % 0.2 % (0-4.5); HEMOGLOBIN 16.4 GM/dL (11.7-16.9); LYMPH % 19.5 % (8-40); MCH 30.5 pg (25.7-33.7); MCHC 34.9 g/dl (32.0-35.9); MEAN CELL VOLUME 87.6 fl (80-96); MEAN PLT VOLUME 7.6 fl (7.5-11.1); MONO % 6.8 % (3.8-10.2); NEUT % 73.1 % (42.8-82.8); PLATELET COUNT 195 10^3/uL (134-434); RBC 5.37 M/mm3 (4.00-5.60); RDW 13.9 % (11.9-15.9)
[2022-03-24] MEDS ORDERED: SODIUM CHLORIDE 1,000 ML IV STA (04:37)
[2022-03-24 05:11] LABS: CHLORIDE 106 mmol/L (98-107); SODIUM 140 mmol/L (136-145)
[2022-03-24 05:13] LABS: ANION GAP 12 MMOL/L (8-16); BLOOD UREA NITROGEN 6.1 mg/dL (7-18); CO2 22 mmol/L (21-32); GLUCOSE,RANDOM 247 mg/dL (74-106)
[2022-03-24 05:16] LABS: CREATININE 0.5 mg/dL (0.55-1.3)
[2022-03-24 07:02] LABS: EPI CELLS 3 /uL (0-25.1); HYALINE CASTS 0 /uL (0-3.1); PH,URINE 6.5 (5.0-8.0); URINE APPEARANCE CLEAR; URINE BACTERIA 839 /uL (0-1359); URINE BILIRUBIN NEGATIVE (NEGATIVE); URINE COLOR YELLOW; URINE GLUCOSE (UA) 3+ (NEGATIVE); URINE KETONE 1+ (NEGATIVE); URINE LEUK ESTERASE NEGATIVE (NEGATIVE); URINE NITRITE NEGATIVE (NEGATIVE); URINE PROTEIN 2+ (NEGATIVE); URINE RBC 8 /uL (0-23.9); URINE WBC 29 /uL (0-25.8)
[2022-03-24] MEDS ORDERED: MAGNESIUM OXIDE 400 MG TABLET (FP) PO ONE (08:32)
[2022-03-24] MEDS ORDERED: POTASSIUM CHLORIDE ORAL LIQUID 20 MEQ/15 ML PO ONE (08:32)
[2022-03-24] MEDS ORDERED: MAGNESIUM OXIDE 400 MG TABLET (FP) ONE (08:50)
[2022-03-24] MEDS ORDERED: POTASSIUM CHLORIDE ORAL LIQUID 20 MEQ/15 ML ONE (08:51)
[2022-03-24] MEDS ORDERED: LORazepam 1 MG TABLET PO PRN (09:32)
[2022-03-24] MEDS ORDERED: LORazepam 2 MG TABLET PO ONE (09:32)
[2022-03-24] MEDS ORDERED: oxyCODONE HCL 5 MG TABLET PO PRN (09:34)
[2022-03-24] MEDS ORDERED: ENOXAPARIN NA (PORCINE) 40 MG/0.4 ML DISP.SYRIN SQ SCH (10:00)
[2022-03-24] MEDS ORDERED: PANTOPRAZOLE SODIUM 40 MG VIAL IVPUSH SCH (10:00)
[2022-03-24] MEDS ORDERED: LORazepam 1 MG TABLET PO ONE (10:00)
[2022-03-24] MEDS ORDERED: PANTOPRAZOLE 40 MG TABLET PO ONE (10:21)
[2022-03-24] MEDS ORDERED: ENOXAPARIN NA (PORCINE) 40 MG/0.4 ML DISP.SYRIN SQ ONE (10:22)
[2022-03-24] MEDS ORDERED: LORazepam 1 MG TABLET ONE ×3 (10:22→16:28)
[2022-03-24] MEDS ORDERED: PANTOPRAZOLE SODIUM 40 MG VIAL ONE (11:02)
[2022-03-24] MEDS: LORazepam 1 MG TABLET PO SCH ×2 (11:10→17:30)
[2022-03-24] MEDS: INSULIN SLIDING SCALE (NOVOLOG) 1 VIAL SQ SCH ×2 (12:10→17:29)
[2022-03-24 14:44] LABS: CALCIUM 6.5 mg/dL (8.5-10.1)
[2022-03-24] MEDS ORDERED: FOLIC ACID INJECTION - 1 MG, THIAMINE HCL 100 MG, MULTIVIT INJECTION ADULT 10 ML in SOD... IVPB ONE (15:00)
[2022-03-24] MEDS ORDERED: THIAMINE HCL 200 MG/2 ML VIAL IM SCH (15:00)
[2022-03-24 15:04] LABS: PHOSPHOROUS 2.5 mg/dL (2.5-4.9)
[2022-03-24] MEDS ORDERED: THIAMINE HCL 200 MG/2 ML VIAL ONE (16:28)
[2022-03-25 07:11] VITALS: TEMP 98.4
[2022-03-25 07:32] LABS: HEMOGLOBIN 13.9 GM/dL (11.7-16.9); MCH 30.8 pg (25.7-33.7); MCHC 34.7 g/dl (32.0-35.9); MEAN CELL VOLUME 88.8 fl (80-96); MEAN PLT VOLUME 7.7 fl (7.5-11.1); PLATELET COUNT 98 10^3/uL (134-434); RBC 4.51 M/mm3 (4.00-5.60); RDW 13.8 % (11.9-15.9); WHITE BLOOD COUNT 3.8 K/mm3 (4.0-10.0)
[2022-03-25 07:35] LABS: INR 1.09 (0.83-1.09); PROTHROMBIN TIME (PATIENT) 12.5 SEC (9.7-13.0)
[2022-03-25 07:57] LABS: BLOOD UREA NITROGEN 11.3 mg/dL (7-18); MAGNESIUM 2.6 mg/dL (1.8-2.4)
[2022-03-25 08:00] LABS: CREATININE 0.6 mg/dL (0.55-1.3)
[2022-03-25 08:17] LABS: CALCIUM 8.4 mg/dL (8.5-10.1)
[2022-03-25 09:17] VITALS: BP 144/92; PULSE 116; RESP 20
[2022-03-25] MEDS ORDERED: FOLIC ACID 1 MG TABLET (FP) PO SCH (10:00)
[2022-03-26] MEDS ORDERED: LORazepam 1 MG TABLET PO SCH (05:00)
[2022-03-27] MEDS ORDERED: LORazepam 0.5 MG TABLET PO PRN
[2022-03-27] MEDS ORDERED: LORazepam 0.5 MG TABLET PO SCH (05:00)
[2022-03-28] MEDS ORDERED: LORazepam 0.5 MG TABLET PO ONE (05:00)
== END 2022-03-25 09:30 | disposition left against medical advice (07) ==
LOC: JER 01:27 → JERBED 08:32
PROVIDERS: ADMIT Internal Medicine; ATTEND Internal Medicine
PROC: 3E033NZ Introduction of Analgesics, Hypnotics, Sedatives into Peripheral Vein, Percutaneous Approach (ICD-10-PCS; principal; 2022-03-24)
PROC: 3E033GC Introduction of Other Therapeutic Substance into Peripheral Vein, Percutaneous Approach (ICD-10-PCS; 2022-03-24)
PROC: 3E033GC Introduction of Other Therapeutic Substance into Peripheral Vein, Percutaneous Approach (ICD-10-PCS; 2022-03-24)
PROC: 3E023GC Introduction of Other Therapeutic Substance into Muscle, Percutaneous Approach (ICD-10-PCS; 2022-03-24)
DX: F10.139 Alcohol abuse with withdrawal, unspecified (principal); R10.9 Unspecified abdominal pain; E11.9 Type 2 diabetes mellitus without complications; R11.10 Vomiting, unspecified
CPT/HCPCS: 0241U-QW; 36415; 71046-TC-FY; 74176-TC; 80048; 80053; 80307; 81003; 82010; 82803; 82962; 83605; 83690; 83735; 84100; 84484; 85025; 85027; 85610; 87086; 93005; 93010; 96361; 96365; 96366; 96372; 96375; 96376; 99285-25; G0378

== ENCOUNTER 2022-05-03 02:34 | Inpatient (IN) | payer OTHER ==
[2022-05-03] MEDS ORDERED: FOLIC ACID INJECTION - 1 MG, THIAMINE HCL 100 MG, MULTIVIT INJECTION ADULT 10 ML in SOD... IVPB ONE (02:56)
[2022-05-03] MEDS ORDERED: diazePAM CARPU-JECT 10 MG/2 ML DISP.SYRIN IVPUSH ONE (02:56)
[2022-05-03] MEDS ORDERED: diazePAM CARPU-JECT 10 MG/2 ML DISP.SYRIN ONE (02:57)
[2022-05-03] MEDS ORDERED: SODIUM CHLORIDE 0.9% 500 ML INFUS.BAG IV ONE (03:07)
[2022-05-03 03:41] LABS: BASO % 0.9 % (0-2.0); EOS % 0.3 % (0-4.5); HEMATOCRIT 48.3 % (35.4-49); HEMOGLOBIN 16.7 GM/dL (11.7-16.9); LYMPH % 20.6 % (8-40); MCH 30.7 pg (25.7-33.7); MCHC 34.6 g/dl (32.0-35.9); MEAN CELL VOLUME 88.8 fl (80-96); MEAN PLT VOLUME 7.1 fl (7.5-11.1); MONO % 6.6 % (3.8-10.2); NEUT % 71.6 % (42.8-82.8); PLATELET COUNT 218 10^3/uL (134-434); RBC 5.44 M/mm3 (4.00-5.60); RDW 14.7 % (11.9-15.9); WHITE BLOOD COUNT 3.8 K/mm3 (4.0-10.0)
[2022-05-03 03:46] LABS: EPI CELLS 1 /uL (0-25.1); HYALINE CASTS 0 /uL (0-3.1); URINE APPEARANCE CLEAR; URINE BACTERIA 587 /uL (0-1359); URINE BILIRUBIN NEGATIVE (NEGATIVE); URINE COLOR YELLOW; URINE GLUCOSE (UA) 3+ (NEGATIVE); URINE KETONE NEGATIVE (NEGATIVE); URINE LEUK ESTERASE TRACE (NEGATIVE); URINE NITRITE NEGATIVE (NEGATIVE); URINE PROTEIN 2+ (NEGATIVE); URINE RBC 11 /uL (0-23.9); URINE WBC 112 /uL (0-25.8)
[2022-05-03 03:56] LABS: INR 0.97 (0.83-1.09); PROTHROMBIN TIME (PATIENT) 11.2 SEC (9.7-13.0)
[2022-05-03 04:08] LABS: ALBUMIN 4.5 g/dl (3.4-5.0); BLOOD UREA NITROGEN 5.5 mg/dL (7-18); CALCIUM 8.9 mg/dL (8.5-10.1)
[2022-05-03 04:11] LABS: CREATININE 1.1 mg/dL (0.55-1.3)
[2022-05-03 04:12] LABS: BILIRUBIN,TOTAL 1.4 mg/dL (0.2-1); TOT PROT 8.4 g/dl (6.4-8.2)
[2022-05-03] MEDS ORDERED: POTASSIUM CHLORIDE TABS 20 MEQ TABLET.ER (FP) PO ONE ×2 (04:27→04:31)
[2022-05-03] MEDS ORDERED: INSULIN REGULAR HUMAN 100 UNITS/ML *VIAL IVPUSH ONE (04:28)
[2022-05-03] MEDS ORDERED: INSULIN REGULAR HUMAN 100 UNITS/ML *VIAL ONE (04:33)
[2022-05-03] MEDS ORDERED: ONDANSETRON 4 MG/2 ML VIAL ONE ×2 (05:48→07:59)
[2022-05-03] MEDS ORDERED: ONDANSETRON 4 MG/2 ML VIAL IVPB ONE (05:48)
[2022-05-03] MEDS ORDERED: diazePAM 5 MG TABLET PO PRN (06:13)
[2022-05-03] MEDS ORDERED: LORazepam 2 MG/ML SDV VIAL IVPUSH PRN (06:13)
[2022-05-03] MEDS ORDERED: FOLIC ACID 1 MG TABLET (FP) PO ONE (06:13)
[2022-05-03] MEDS: SODIUM CHLORIDE 1,000 ML IV SCH ×2 (06:32→17:13)
[2022-05-03] MEDS ORDERED: FOLIC ACID 1 MG TABLET (FP) ONE (06:32)
[2022-05-03 07:20] LABS: BLOOD UREA NITROGEN 5.3 mg/dL (7-18); CALCIUM 8.3 mg/dL (8.5-10.1)
[2022-05-03 07:23] LABS: CREATININE 0.9 mg/dL (0.55-1.3)
[2022-05-03] MEDS: INSULIN (LEVEMIR) 100 UNITS/ML UNITS SQ SCH (07:52)
[2022-05-03] MEDS: INSULIN SLIDING SCALE (NOVOLOG) 1 VIAL SQ SCH ×4 (07:53→22:55)
[2022-05-03] MEDS ORDERED: ENOXAPARIN NA (PORCINE) 40 MG/0.4 ML DISP.SYRIN SQ ONE (09:13)
[2022-05-03] MEDS ORDERED: THIAMINE HCL 200 MG/2 ML VIAL ONE (09:13)
[2022-05-03] MEDS: ENOXAPARIN NA (PORCINE) 40 MG/0.4 ML DISP.SYRIN SQ SCH (09:14)
[2022-05-03] MEDS: THIAMINE HCL 200 MG/2 ML VIAL IVPB SCH (09:15)
[2022-05-03] MEDS ORDERED: ONDANSETRON 4 MG/2 ML VIAL IVPUSH PRN (10:00)
[2022-05-03 10:38] VITALS: BMI 26.6
[2022-05-03] MEDS: diazePAM 5 MG TABLET PO SCH ×3 (10:49→22:48)
[2022-05-03] MEDS ORDERED: MEDICAL SUPPLY TP SCH ×2 (12:45)
[2022-05-03 13:08] LABS: EPI CELLS 2 /uL (0-25.1); HYALINE CASTS 0 /uL (0-3.1); PH,URINE 8.5 (5.0-8.0); URINE APPEARANCE CLEAR; URINE BACTERIA 2969 /uL (0-1359); URINE BILIRUBIN NEGATIVE (NEGATIVE); URINE COLOR YELLOW; URINE GLUCOSE (UA) 2+ (NEGATIVE); URINE KETONE NEGATIVE (NEGATIVE); URINE LEUK ESTERASE TRACE (NEGATIVE); URINE NITRITE NEGATIVE (NEGATIVE); URINE PROTEIN 1+ (NEGATIVE); URINE RBC 8 /uL (0-23.9); URINE WBC 61 /uL (0-25.8)
[2022-05-03] MEDS: PANTOPRAZOLE SODIUM 40 MG VIAL IVPUSH SCH ×2 (13:10→21:34)
[2022-05-03] MEDS: ATORVASTATIN CA 40 MG TABLET (FP) PO SCH (21:34)
[2022-05-04] MEDS: SODIUM CHLORIDE 1,000 ML IV SCH ×3 (00:59→19:05)
[2022-05-04] MEDS: diazePAM 5 MG TABLET PO SCH ×4 (05:06→23:13)
[2022-05-04] MEDS: INSULIN SLIDING SCALE (NOVOLOG) 1 VIAL SQ SCH ×4 (06:21→21:52)
[2022-05-04] MEDS: INSULIN (LEVEMIR) 100 UNITS/ML UNITS SQ SCH (06:23)
[2022-05-04 09:21] LABS: BASO % 0.8 % (0-2.0); EOS % 2.2 % (0-4.5); HEMATOCRIT 41.7 % (35.4-49); HEMOGLOBIN 14.3 GM/dL (11.7-16.9); LYMPH % 24.7 % (8-40); MCH 30.8 pg (25.7-33.7); MCHC 34.3 g/dl (32.0-35.9); MEAN CELL VOLUME 89.8 fl (80-96); MEAN PLT VOLUME 7.2 fl (7.5-11.1); MONO % 7.6 % (3.8-10.2); NEUT % 64.7 % (42.8-82.8); PLATELET COUNT 128 10^3/uL (134-434); RBC 4.65 M/mm3 (4.00-5.60); RDW 14.6 % (11.9-15.9)
[2022-05-04] MEDS: THIAMINE HCL 200 MG/2 ML VIAL IVPB SCH (09:25)
[2022-05-04] MEDS: PANTOPRAZOLE SODIUM 40 MG VIAL IVPUSH SCH ×2 (09:28→21:52)
[2022-05-04] MEDS: ENOXAPARIN NA (PORCINE) 40 MG/0.4 ML DISP.SYRIN SQ SCH (09:28)
[2022-05-04 09:53] LABS: CALCIUM 8.1 mg/dL (8.5-10.1)
[2022-05-04 09:54] LABS: BLOOD UREA NITROGEN 7.4 mg/dL (7-18); MAGNESIUM 2.3 mg/dL (1.8-2.4)
[2022-05-04 09:57] LABS: CREATININE 0.8 mg/dL (0.55-1.3); PHOSPHOROUS 2.9 mg/dL (2.5-4.9)
[2022-05-04 09:58] LABS: BILIRUBIN,TOTAL 2.3 mg/dL (0.2-1); TOT PROT 6.4 g/dl (6.4-8.2)
[2022-05-04] MEDS ORDERED: POTASSIUM CHLORIDE ORAL LIQUID 20 MEQ/15 ML PO ONE (09:58)
[2022-05-04 10:00] LABS: ALBUMIN 3.5 g/dl (3.4-5.0)
[2022-05-04] MEDS ORDERED: ALCOHOL ANTISEPTIC PADS TP SCH (10:00)
[2022-05-04 11:54] LABS: HIV INTERPRETATION NEGATIVE (NEGATIVE)
[2022-05-04 15:58] VITALS: RESP 18
[2022-05-04] MEDS: ATORVASTATIN CA 40 MG TABLET (FP) PO SCH (21:52)
[2022-05-05] MEDS: SODIUM CHLORIDE 1,000 ML IV SCH (04:31)
[2022-05-05] MEDS: diazePAM 5 MG TABLET PO SCH ×2 (06:38→15:51)
[2022-05-05] MEDS: INSULIN SLIDING SCALE (NOVOLOG) 1 VIAL SQ SCH ×3 (06:39→17:15)
[2022-05-05] MEDS: INSULIN (LEVEMIR) 100 UNITS/ML UNITS SQ SCH (06:39)
[2022-05-05] MEDS: PANTOPRAZOLE SODIUM 40 MG VIAL IVPUSH SCH (10:54)
[2022-05-05] MEDS: THIAMINE HCL 200 MG/2 ML VIAL IVPB SCH (10:54)
[2022-05-05] MEDS: ENOXAPARIN NA (PORCINE) 40 MG/0.4 ML DISP.SYRIN SQ SCH (10:54)
[2022-05-05 10:57] VITALS: PULSE 82
[2022-05-05 11:59] LABS: HEMATOCRIT 42.2 % (35.4-49); HEMOGLOBIN 14.6 GM/dL (11.7-16.9); MCH 30.8 pg (25.7-33.7); MCHC 34.5 g/dl (32.0-35.9); MEAN CELL VOLUME 89.1 fl (80-96); MEAN PLT VOLUME 7.6 fl (7.5-11.1); PLATELET COUNT 111 10^3/uL (134-434); RBC 4.73 M/mm3 (4.00-5.60); RDW 14.6 % (11.9-15.9); WHITE BLOOD COUNT 4.1 K/mm3 (4.0-10.0)
[2022-05-05 12:13] LABS: CREATININE 0.6 mg/dL (0.55-1.3)
[2022-05-05 12:14] LABS: CALCIUM 8.6 mg/dL (8.5-10.1); TOT PROT 6.8 g/dl (6.4-8.2)
[2022-05-05 12:15] LABS: ALBUMIN 3.7 g/dl (3.4-5.0); BLOOD UREA NITROGEN 6.7 mg/dL (7-18)
[2022-05-05 12:22] LABS: BILIRUBIN,TOTAL 1.9 mg/dL (0.2-1)
[2022-05-05 14:24] VITALS: BP 118/73; TEMP 98.6
[2022-05-05] MEDS ORDERED: CEPHALEXIN MONOHYDRATE 500 MG CAPSULE (UD) PO SCH (15:00)
[2022-05-05] MEDS ORDERED: POTASSIUM CHLORIDE TABS 20 MEQ TABLET.ER (FP) PO ONE (16:41)
[2022-05-06] MEDS ORDERED: diazePAM 5 MG TABLET PO SCH (06:00)
[2022-05-06] MEDS ORDERED: THIAMINE HCL 100 MG TABLET (FP) PO SCH (10:00)
[2022-05-07] MEDS ORDERED: diazePAM 5 MG TABLET PO ONE (06:00)
== END 2022-05-05 18:25 | disposition other institution (70) | DRG 775 ==
LOC: JER 02:34 → JERBED 05:39 → J5S 09:40
PROVIDERS: ADMIT Internal Medicine; ATTEND Internal Medicine
PROC: HZ2ZZZZ Detoxification Services for Substance Abuse Treatment (ICD-10-PCS; principal; 2022-05-03)
DX: F10.230 Alcohol dependence with withdrawal, uncomplicated (principal); R00.0 Tachycardia, unspecified; E11.65 Type 2 diabetes mellitus with hyperglycemia; K21.9 Gastro-esophageal reflux disease without esophagitis; N39.0 Urinary tract infection, site not specified; K70.10 Alcoholic hepatitis without ascites; K76.0 Fatty (change of) liver, not elsewhere classified; R94.5 Abnormal results of liver function studies; E80.6 Other disorders of bilirubin metabolism; D72.819 Decreased white blood cell count, unspecified
CPT/HCPCS: 0241U-QW; 36415; 80048; 80053; 80307; 81003; 82550; 82962; 83036; 83690; 83735; 84100; 84484; 85025; 85027; 85610; 87040; 87086; 87186; 87389; 87491; 87591; 93005; 93010; 99285-25

== ENCOUNTER 2022-05-05 19:04 | Inpatient (IN) | payer OTHER ==
[2022-05-05 19:33] VITALS: BMI 27.1
[2022-05-05] MEDS ORDERED: BISMUTH SUBSALICYLATE 524 MG/30 ML PO PRN (21:27)
[2022-05-05] MEDS ORDERED: MAG HYDROX/AL HYDROX/SIMETH 30 ML UNIT-DOSE CUP PO PRN (21:27)
[2022-05-05] MEDS ORDERED: LOPERAMIDE HCL 2 MG CAPSULE PO PRN (21:27)
[2022-05-05] MEDS ORDERED: IBUPROFEN 600 MG TABLET (FP) PO PRN (21:27)
[2022-05-05] MEDS ORDERED: ACETAMINOPHEN 325 MG TABLET (FP) PO PRN ×4 (21:27→21:42)
[2022-05-05] MEDS ORDERED: P-EPHED 60MG/TRIPROLIDI 2.5MG TABLET PO PRN (21:27)
[2022-05-05] MEDS ORDERED: MAGNESIUM HYDROX 2400MG/30ML ORAL SUSPENSION 30 ML CUP PO PRN (21:27)
[2022-05-05] MEDS ORDERED: IBUPROFEN 400 MG TABLET (FP) PO PRN (21:27)
[2022-05-05] MEDS ORDERED: ONDANSETRON *ODT* 4 MG TABLET SL PRN (21:27)
[2022-05-05] MEDS ORDERED: guaiFENesin 200 MG/10 ML 10 ML UNIT-DOSE CUPS PO PRN (21:27)
[2022-05-05] MEDS ORDERED: BENZOCAINE/MENTHOL (CHLORASEPTIC ) LOZENGE MM PRN (21:27)
[2022-05-05] MEDS ORDERED: POLYETHYLENE GLYCOL (HEALTHYLAX) 3350 17 GM PACKET PO PRN (21:27)
[2022-05-05] MEDS ORDERED: DICYCLOMINE HCL 10 MG CAPSULE PO PRN (21:27)
[2022-05-05] MEDS ORDERED: diazePAM 5 MG TABLET PO ONE (21:31)
[2022-05-05] MEDS ORDERED: ATORVASTATIN CA 20 MG TABLET (FP) PO SCH (22:00)
[2022-05-05] MEDS: INSULIN SLIDING SCALE (NOVOLOG) 1 VIAL SQ SCH (23:54)
[2022-05-05] MEDS: THIAMINE HCL 100 MG TABLET (FP) PO SCH (23:59)
[2022-05-05] MEDS: CEPHALEXIN MONOHYDRATE 500 MG CAPSULE (UD) PO SCH (23:59)
[2022-05-06] MEDS: ATORVASTATIN CA 40 MG TABLET (FP) PO SCH ×2 (00:02→22:27)
[2022-05-06] MEDS: CEPHALEXIN MONOHYDRATE 500 MG CAPSULE (UD) PO SCH ×3 (05:47→22:28)
[2022-05-06] MEDS: diazePAM 5 MG TABLET PO SCH ×3 (05:48→22:28)
[2022-05-06] MEDS: INSULIN SLIDING SCALE (NOVOLOG) 1 VIAL SQ SCH ×4 (06:43→22:25)
[2022-05-06] MEDS: diazePAM 5 MG TABLET PO PRN (10:25)
[2022-05-06] MEDS: PRENATAL VITAMINS W/ FOLIC ACID TABLET (FP) PO SCH (10:25)
[2022-05-06] MEDS: hydrOXYzine PAMOATE 25 MG CAPSULE (FP) PO PRN (10:25)
[2022-05-06] MEDS: METHOCARBAMOL 500 MG TABLET PO PRN (10:25)
[2022-05-06] MEDS ORDERED: INSULIN (NOVOLOG) ASPART 100 UNITS/ML 10ML VIAL ONE ×2 (11:17→17:19)
[2022-05-06] MEDS: THIAMINE HCL 100 MG TABLET (FP) PO SCH (22:27)
[2022-05-06] MEDS: MELATONIN 5 MG TABLETS PO PRN (22:29)
[2022-05-07] MEDS: diazePAM 5 MG TABLET PO SCH ×2 (05:49→17:24)
[2022-05-07] MEDS: CEPHALEXIN MONOHYDRATE 500 MG CAPSULE (UD) PO SCH ×3 (05:50→22:36)
[2022-05-07] MEDS: INSULIN SLIDING SCALE (NOVOLOG) 1 VIAL SQ SCH ×4 (06:51→22:33)
[2022-05-07] MEDS: PRENATAL VITAMINS W/ FOLIC ACID TABLET (FP) PO SCH (10:19)
[2022-05-07] MEDS: diazePAM 5 MG TABLET PO PRN (10:19)
[2022-05-07] MEDS: METHOCARBAMOL 500 MG TABLET PO PRN (10:19)
[2022-05-07] MEDS: hydrOXYzine PAMOATE 25 MG CAPSULE (FP) PO PRN (10:19)
[2022-05-07] MEDS ORDERED: INSULIN (NOVOLOG) ASPART 100 UNITS/ML 10ML VIAL ONE ×3 (10:48→22:36)
[2022-05-07 21:07] VITALS: RESP 18
[2022-05-07] MEDS: ATORVASTATIN CA 40 MG TABLET (FP) PO SCH (22:36)
[2022-05-07] MEDS: THIAMINE HCL 100 MG TABLET (FP) PO SCH (22:37)
[2022-05-07] MEDS: MELATONIN 5 MG TABLETS PO PRN (22:37)
[2022-05-08] MEDS: CEPHALEXIN MONOHYDRATE 500 MG CAPSULE (UD) PO SCH (05:54)
[2022-05-08] MEDS ORDERED: diazePAM 5 MG TABLET PO ONE (06:00)
[2022-05-08] MEDS ORDERED: INSULIN (NOVOLOG) ASPART 100 UNITS/ML 10ML VIAL ONE (07:37)
[2022-05-08] MEDS: INSULIN SLIDING SCALE (NOVOLOG) 1 VIAL SQ SCH ×2 (07:40→10:16)
[2022-05-08 09:18] VITALS: BP 118/78; PULSE 91; TEMP 97.8
[2022-05-08] MEDS: METHOCARBAMOL 500 MG TABLET PO PRN (10:06)
[2022-05-08] MEDS: hydrOXYzine PAMOATE 25 MG CAPSULE (FP) PO PRN (10:06)
[2022-05-08] MEDS: PRENATAL VITAMINS W/ FOLIC ACID TABLET (FP) PO SCH (10:06)
== END 2022-05-08 10:26 | disposition home or self-care (01) | DRG 897 ==
LOC: YASAS 19:04 → Y6N 22:14
PROVIDERS: ADMIT Allergy & Immunology; ATTEND Family Medicine
PROC: HZ2ZZZZ Detoxification Services for Substance Abuse Treatment (ICD-10-PCS; principal; 2022-05-05)
DX: F10.230 Alcohol dependence with withdrawal, uncomplicated (principal); K21.9 Gastro-esophageal reflux disease without esophagitis; K70.10 Alcoholic hepatitis without ascites; K76.0 Fatty (change of) liver, not elsewhere classified; E11.9 Type 2 diabetes mellitus without complications
CPT/HCPCS: 82962; C9803-CS; U0003; U0005

== ENCOUNTER 2022-05-24 17:21 | Observation (INO) | payer OTHER ==
[2022-05-24] MEDS ORDERED: LACTATED RINGERS SOLUTION 1000 ML INFUS.BAG IV ONE (17:49)
[2022-05-24] MEDS ORDERED: ONDANSETRON 4 MG/2 ML VIAL IVPUSH ONE (17:57)
[2022-05-24] MEDS ORDERED: ACETAMINOPHEN 1000 MG/100 ML BAG IVPB ONE (17:57)
[2022-05-24] MEDS ORDERED: FAMOTIDINE 20 MG/50 ML IVPB 20 MG/50 ML MG IVPB ONE ×2 (18:02→18:26)
[2022-05-24] MEDS ORDERED: ONDANSETRON 4 MG/2 ML VIAL ONE (18:26)
[2022-05-24] MEDS ORDERED: ACETAMINOPHEN INJECTION 100 ML IVPB ONE (18:26)
[2022-05-24] MEDS ORDERED: diazePAM CARPU-JECT 10 MG/2 ML DISP.SYRIN IVPUSH ONE (18:36)
[2022-05-24] MEDS ORDERED: MAG HYDROX/AL HYDROX/SIMETH -MYLANTA- ORAL SUSPENSION PO ONE (18:36)
[2022-05-24] MEDS ORDERED: diazePAM CARPU-JECT 10 MG/2 ML DISP.SYRIN ONE (18:37)
[2022-05-24] MEDS ORDERED: MAG HYDROX/AL HYDROX/SIMETH 30 ML UNIT-DOSE CUP ONE (18:37)
[2022-05-24 18:54] LABS: VENOUS BASE EXCESS -0.9 mmol/L (-2-2); VENOUS O2 SATURATION 85.2 % (70-80); VENOUS PCO2 39.1 mmHg (38-52); VENOUS PH 7.4 (7.310-7.410)
[2022-05-24 18:59] LABS: BASO % 0.1 % (0-2.0); HEMATOCRIT 45.1 % (35.4-49); MCH 31.4 pg (25.7-33.7); MCHC 35.5 g/dl (32.0-35.9); MEAN CELL VOLUME 88.4 fl (80-96); MEAN PLT VOLUME 7.1 fl (7.5-11.1); MONO % 5.6 % (3.8-10.2); NEUT % 89.3 % (42.8-82.8); PLATELET COUNT 226 10^3/uL (134-434); RDW 14.4 % (11.9-15.9); WHITE BLOOD COUNT 6.6 K/mm3 (4.0-10.0)
[2022-05-24 19:18] LABS: CALCIUM 9.5 mg/dL (8.5-10.1)
[2022-05-24 19:19] LABS: ALBUMIN 4.6 g/dl (3.4-5.0); BLOOD UREA NITROGEN 6.2 mg/dL (7-18)
[2022-05-24 19:22] LABS: CREATININE 1.9 mg/dL (0.55-1.3)
[2022-05-24 19:23] LABS: TOT PROT 8.4 g/dl (6.4-8.2)
[2022-05-24 19:24] LABS: BILIRUBIN,TOTAL 1.6 mg/dL (0.2-1)
[2022-05-24] MEDS ORDERED: MAGNESIUM SULF 50% (8.12 MEQ/2 ML-1 GM VIAL) IVPB ONE (19:24)
[2022-05-24] MEDS ORDERED: MAGNESIUM 1GM/D5W - 1 GM/100 ML IVPB IVPB ONE (20:09)
[2022-05-24] MEDS ORDERED: KCL 10 MEQ IVPB 10 MEQ/100 ML INFUS.BAG IVPB ONE ×2 (20:09→23:19)
[2022-05-24] MEDS: KCL 10 MEQ IVPB 10 MEQ/100 ML INFUS.BAG IVPB SCH (22:00)
[2022-05-24 22:31] LABS: EPI CELLS 1 /uL (0-25.1); HYALINE CASTS 0 /uL (0-3.1); PH,URINE 6.5 (5.0-8.0); URINE APPEARANCE CLEAR; URINE BACTERIA 5 /uL (0-1359); URINE BILIRUBIN NEGATIVE (NEGATIVE); URINE COLOR YELLOW; URINE GLUCOSE (UA) 3+ (NEGATIVE); URINE KETONE 2+ (NEGATIVE); URINE LEUK ESTERASE NEGATIVE (NEGATIVE); URINE NITRITE NEGATIVE (NEGATIVE); URINE PROTEIN 2+ (NEGATIVE); URINE RBC 13 /uL (0-23.9); URINE WBC 9 /uL (0-25.8)
[2022-05-24] MEDS ORDERED: FOLIC ACID 1 MG TABLET (FP) PO ONE (23:07)
[2022-05-24] MEDS ORDERED: FOLIC ACID 1 MG TABLET (FP) ONE (23:19)
[2022-05-25] MEDS ORDERED: LORazepam 1 MG TABLET PO PRN (00:15)
[2022-05-25] MEDS: KCL 10 MEQ IVPB 10 MEQ/100 ML INFUS.BAG IVPB SCH ×3 (00:36→02:46)
[2022-05-25] MEDS: SODIUM CHLORIDE 1,000 ML IV SCH ×2 (01:00→18:42)
[2022-05-25 01:27] LABS: BILIRUBIN,DIRECT 0.4 mg/dL (0.0-0.2)
[2022-05-25 01:28] LABS: EPI CELLS 3 /uL (0-25.1); HYALINE CASTS 0 /uL (0-3.1); URINE APPEARANCE CLOUDY; URINE BACTERIA 9 /uL (0-1359); URINE BILIRUBIN NEGATIVE (NEGATIVE); URINE COLOR YELLOW; URINE GLUCOSE (UA) 3+ (NEGATIVE); URINE KETONE 2+ (NEGATIVE); URINE LEUK ESTERASE NEGATIVE (NEGATIVE); URINE NITRITE NEGATIVE (NEGATIVE); URINE PROTEIN 1+ (NEGATIVE); URINE RBC 4 /uL (0-23.9); URINE WBC 18 /uL (0-25.8)
[2022-05-25] MEDS ORDERED: FOLIC ACID INJECTION - 1 MG, THIAMINE HCL 100 MG, MULTIVIT INJECTION ADULT 10 ML in SOD... IVPB ONE (01:30)
[2022-05-25] MEDS ORDERED: KCL 10 MEQ IVPB 10 MEQ/100 ML INFUS.BAG IVPB ONE (01:31)
[2022-05-25 01:33] LABS: METHADONE, UR NEGATIVE (NEGATIVE); PHENCYCLIDINE,URINE NEGATIVE (NEGATIVE)
[2022-05-25 01:34] LABS: OPIATES, URI NEGATIVE (NEGATIVE); URINE BARBITURATES NEGATIVE (NEGATIVE)
[2022-05-25 01:39] LABS: MAGNESIUM 2.6 mg/dL (1.8-2.4)
[2022-05-25 01:43] LABS: PHOSPHOROUS 3.6 mg/dL (2.5-4.9)
[2022-05-25 02:02] LABS: COCAINE, UR NEGATIVE (NEGATIVE); URINE AMPHETAMINES NEGATIVE (NEGATIVE); URINE BENZODIAZEPINES POSITIVE (NEGATIVE)
[2022-05-25] MEDS: HEPARIN NA (PORCINE) 5,000 UNITS/ML 1ML VIAL SQ SCH ×4 (06:03→21:15)
[2022-05-25] MEDS: LORazepam 1 MG TABLET PO SCH ×4 (06:03→23:31)
[2022-05-25] MEDS ORDERED: LORazepam 1 MG TABLET ONE ×3 (06:05→17:42)
[2022-05-25] MEDS ORDERED: HEPARIN NA (PORCINE) 5,000 UNITS/ML 1ML VIAL ONE ×2 (06:05→13:07)
[2022-05-25] MEDS ORDERED: PANTOPRAZOLE SODIUM 40 MG/100 ML BAG IVPB ONE (07:58)
[2022-05-25] MEDS ORDERED: THIAMINE HCL 200 MG/2 ML VIAL ONE (07:58)
[2022-05-25] MEDS ORDERED: FOLIC ACID 1 MG TABLET (FP) ONE (07:58)
[2022-05-25] MEDS: INSULIN SLIDING SCALE (NOVOLOG) 1 VIAL SQ SCH ×4 (08:18→21:16)
[2022-05-25] MEDS: PANTOPRAZOLE SODIUM 40 MG VIAL IVPUSH SCH (09:26)
[2022-05-25] MEDS: THIAMINE HCL 200 MG/2 ML VIAL IVPB SCH (09:27)
[2022-05-25] MEDS: FOLIC ACID 1 MG TABLET (FP) PO SCH (09:27)
[2022-05-25 10:38] LABS: HEMOGLOBIN 14.2 GM/dL (11.7-16.9); MCH 30.8 pg (25.7-33.7); MCHC 34.6 g/dl (32.0-35.9); MEAN CELL VOLUME 89.2 fl (80-96); MEAN PLT VOLUME 7.7 fl (7.5-11.1); PLATELET COUNT 172 10^3/uL (134-434); RDW 14.3 % (11.9-15.9); WHITE BLOOD COUNT 4.4 K/mm3 (4.0-10.0)
[2022-05-25 11:06] LABS: CALCIUM 8.2 mg/dL (8.5-10.1)
[2022-05-25 11:07] LABS: ALBUMIN 3.8 g/dl (3.4-5.0); BLOOD UREA NITROGEN 7.5 mg/dL (7-18)
[2022-05-25 11:10] LABS: CREATININE 1.7 mg/dL (0.55-1.3)
[2022-05-25 11:11] LABS: BILIRUBIN,TOTAL 1.3 mg/dL (0.2-1)
[2022-05-25 18:42] VITALS: BMI 26.2
[2022-05-26] MEDS: SODIUM CHLORIDE 1,000 ML IV SCH (02:54)
[2022-05-26] MEDS: LORazepam 1 MG TABLET PO SCH ×2 (04:26→11:17)
[2022-05-26] MEDS: HEPARIN NA (PORCINE) 5,000 UNITS/ML 1ML VIAL SQ SCH ×2 (05:23→13:51)
[2022-05-26] MEDS: INSULIN SLIDING SCALE (NOVOLOG) 1 VIAL SQ SCH ×3 (06:03→16:20)
[2022-05-26 08:35] LABS: BASO % 0.5 % (0-2.0); EOS % 0.7 % (0-4.5); HEMATOCRIT 43.3 % (35.4-49); LYMPH % 19.5 % (8-40); MCHC 34.7 g/dl (32.0-35.9); MEAN CELL VOLUME 89.4 fl (80-96); MEAN PLT VOLUME 7.9 fl (7.5-11.1); MONO % 6.4 % (3.8-10.2); NEUT % 72.9 % (42.8-82.8); PLATELET COUNT 178 10^3/uL (134-434); RBC 4.85 M/mm3 (4.00-5.60); RDW 14.1 % (11.9-15.9); WHITE BLOOD COUNT 5.5 K/mm3 (4.0-10.0)
[2022-05-26 08:44] LABS: CALCIUM 8.8 mg/dL (8.5-10.1)
[2022-05-26 08:46] LABS: ALBUMIN 4.1 g/dl (3.4-5.0); BLOOD UREA NITROGEN 8.8 mg/dL (7-18)
[2022-05-26 08:49] LABS: CREATININE 1.3 mg/dL (0.55-1.3)
[2022-05-26 08:50] LABS: BILIRUBIN,TOTAL 1.2 mg/dL (0.2-1)
[2022-05-26 08:51] LABS: TOT PROT 7.4 g/dl (6.4-8.2)
[2022-05-26 09:35] VITALS: RESP 18
[2022-05-26] MEDS: FOLIC ACID 1 MG TABLET (FP) PO SCH (09:36)
[2022-05-26] MEDS: PANTOPRAZOLE SODIUM 40 MG VIAL IVPUSH SCH (09:36)
[2022-05-26] MEDS: THIAMINE HCL 200 MG/2 ML VIAL IVPB SCH (09:38)
[2022-05-26 13:59] VITALS: BP 129/80; PULSE 90; TEMP 98.5
[2022-05-27] MEDS ORDERED: LORazepam 0.5 MG TABLET PO PRN
[2022-05-27] MEDS ORDERED: LORazepam 0.5 MG TABLET PO SCH (05:00)
[2022-05-28] MEDS ORDERED: LORazepam 0.5 MG TABLET PO ONE (05:00)
== END 2022-05-26 17:37 | disposition other institution (70) ==
LOC: JER 17:21 → JERBED 23:05 → INTOOBSV 23:05 → UNDOADMOB 23:05 → JERBED 05-25 11:42 → J4S 05-25 18:05
PROVIDERS: ADMIT Internal Medicine; ATTEND Internal Medicine
PROC: 3E033NZ Introduction of Analgesics, Hypnotics, Sedatives into Peripheral Vein, Percutaneous Approach (ICD-10-PCS; principal; 2022-05-25)
PROC: 3E023GC Introduction of Other Therapeutic Substance into Muscle, Percutaneous Approach (ICD-10-PCS; 2022-05-25)
PROC: 3E013VG Introduction of Insulin into Subcutaneous Tissue, Percutaneous Approach (ICD-10-PCS; 2022-05-25)
PROC: 3E0337Z Introduction of Electrolytic and Water Balance Substance into Peripheral Vein, Percutaneous Approach (ICD-10-PCS; 2022-05-25)
PROC: 3E033GC Introduction of Other Therapeutic Substance into Peripheral Vein, Percutaneous Approach (ICD-10-PCS; 2022-05-25)
DX: F10.99 Alcohol use, unspecified with unspecified alcohol-induced disorder (principal); N17.9 Acute kidney failure, unspecified; R10.13 Epigastric pain; E11.9 Type 2 diabetes mellitus without complications; E87.6 Hypokalemia
CPT/HCPCS: 0241U-QW; 36415; 70450-TC; 71045-TC-FY; 74176-TC; 76775-TC; 80053; 80307; 81003; 82248; 82550; 82607; 82803; 82962; 83036; 83605; 83690; 83735; 84100; 85025; 85027; 87086; 93005; 93010; 96361; 96365; 96366; 96367; 96372; 96375; 99285-25; G0378; J1644

== ENCOUNTER 2022-05-26 17:14 | Inpatient (IN) | payer OTHER ==
[2022-05-26 17:47] VITALS: BMI 26.4
[2022-05-26] MEDS ORDERED: MAGNESIUM HYDROX 2400MG/30ML ORAL SUSPENSION 30 ML CUP PO PRN (18:27)
[2022-05-26] MEDS ORDERED: BENZOCAINE/MENTHOL (CHLORASEPTIC ) LOZENGE MM PRN (18:27)
[2022-05-26] MEDS ORDERED: guaiFENesin 200 MG/10 ML 10 ML UNIT-DOSE CUPS PO PRN (18:27)
[2022-05-26] MEDS ORDERED: LOPERAMIDE HCL 2 MG CAPSULE PO PRN (18:27)
[2022-05-26] MEDS ORDERED: MELATONIN 5 MG TABLETS PO PRN (18:27)
[2022-05-26] MEDS ORDERED: BISMUTH SUBSALICYLATE 524 MG/30 ML PO PRN (18:27)
[2022-05-26] MEDS ORDERED: IBUPROFEN 600 MG TABLET (FP) PO PRN (18:27)
[2022-05-26] MEDS ORDERED: IBUPROFEN 400 MG TABLET (FP) PO PRN (18:27)
[2022-05-26] MEDS ORDERED: MAG HYDROX/AL HYDROX/SIMETH 30 ML UNIT-DOSE CUP PO PRN (18:27)
[2022-05-26] MEDS ORDERED: P-EPHED 60MG/TRIPROLIDI 2.5MG TABLET PO PRN (18:27)
[2022-05-26] MEDS ORDERED: ONDANSETRON *ODT* 4 MG TABLET SL PRN (18:27)
[2022-05-26] MEDS ORDERED: METHOCARBAMOL 500 MG TABLET PO PRN (18:27)
[2022-05-26] MEDS ORDERED: hydrOXYzine PAMOATE 25 MG CAPSULE (FP) PO PRN (18:27)
[2022-05-26] MEDS ORDERED: ACETAMINOPHEN 325 MG TABLET (FP) PO PRN ×2 (18:27)
[2022-05-26] MEDS ORDERED: POLYETHYLENE GLYCOL (HEALTHYLAX) 3350 17 GM PACKET PO PRN (18:27)
[2022-05-26] MEDS ORDERED: DICYCLOMINE HCL 10 MG CAPSULE PO PRN (18:27)
[2022-05-26] MEDS ORDERED: diazePAM 5 MG TABLET PO PRN (18:29)
[2022-05-26] MEDS: INSULIN SLIDING SCALE (NOVOLOG) 1 VIAL SQ SCH ×2 (20:02→21:33)
[2022-05-26] MEDS: THIAMINE HCL 100 MG TABLET (FP) PO SCH (22:09)
[2022-05-26] MEDS: ATORVASTATIN CA 40 MG TABLET (FP) PO SCH (22:09)
[2022-05-26] MEDS: diazePAM 5 MG TABLET PO SCH (22:10)
[2022-05-27] MEDS: metFORMIN HCL 500 MG TABLET (FP) PO SCH ×2 (06:29→17:26)
[2022-05-27] MEDS: diazePAM 5 MG TABLET PO SCH ×4 (06:29→22:14)
[2022-05-27] MEDS: INSULIN SLIDING SCALE (NOVOLOG) 1 VIAL SQ SCH ×4 (06:32→21:19)
[2022-05-27] MEDS: PRENATAL VITAMINS W/ FOLIC ACID TABLET (FP) PO SCH (10:07)
[2022-05-27] MEDS: THIAMINE HCL 100 MG TABLET (FP) PO SCH (22:14)
[2022-05-27] MEDS: ATORVASTATIN CA 40 MG TABLET (FP) PO SCH (22:14)
[2022-05-28] MEDS: diazePAM 5 MG TABLET PO SCH ×3 (05:26→22:11)
[2022-05-28] MEDS: glyBURIDE 2.5 MG TABLET PO SCH (07:00)
[2022-05-28] MEDS: metFORMIN HCL 500 MG TABLET (FP) PO SCH ×2 (07:00→17:18)
[2022-05-28] MEDS: INSULIN SLIDING SCALE (NOVOLOG) 1 VIAL SQ SCH ×4 (07:00→22:11)
[2022-05-28] MEDS: PANTOPRAZOLE 40 MG TABLET PO SCH (10:24)
[2022-05-28] MEDS: PRENATAL VITAMINS W/ FOLIC ACID TABLET (FP) PO SCH (10:24)
[2022-05-28] MEDS: ATORVASTATIN CA 40 MG TABLET (FP) PO SCH (22:11)
[2022-05-28] MEDS: THIAMINE HCL 100 MG TABLET (FP) PO SCH (22:11)
[2022-05-29] MEDS: diazePAM 5 MG TABLET PO SCH ×2 (05:17→17:39)
[2022-05-29] MEDS: glyBURIDE 2.5 MG TABLET PO SCH (07:01)
[2022-05-29] MEDS: metFORMIN HCL 500 MG TABLET (FP) PO SCH ×2 (07:01→17:39)
[2022-05-29] MEDS: INSULIN SLIDING SCALE (NOVOLOG) 1 VIAL SQ SCH ×4 (07:01→22:10)
[2022-05-29] MEDS: PRENATAL VITAMINS W/ FOLIC ACID TABLET (FP) PO SCH (10:01)
[2022-05-29] MEDS: PANTOPRAZOLE 40 MG TABLET PO SCH (10:01)
[2022-05-29] MEDS: ATORVASTATIN CA 40 MG TABLET (FP) PO SCH (22:10)
[2022-05-29] MEDS: THIAMINE HCL 100 MG TABLET (FP) PO SCH (22:10)
[2022-05-30] MEDS ORDERED: diazePAM 5 MG TABLET PO ONE (06:00)
[2022-05-30] MEDS: metFORMIN HCL 500 MG TABLET (FP) PO SCH (06:34)
[2022-05-30] MEDS: glyBURIDE 2.5 MG TABLET PO SCH (06:34)
[2022-05-30] MEDS: INSULIN SLIDING SCALE (NOVOLOG) 1 VIAL SQ SCH (06:35)
[2022-05-30 09:19] VITALS: BP 129/83; PULSE 98; RESP 17; TEMP 97.5
[2022-05-30 10:43] LABS: HEMATOCRIT 39.7 % (35.4-49); HEMOGLOBIN 13.7 GM/dL (11.7-16.9); MCH 30.8 pg (25.7-33.7); MCHC 34.5 g/dl (32.0-35.9); MEAN CELL VOLUME 89.3 fl (80-96); MEAN PLT VOLUME 8.6 fl (7.5-11.1); PLATELET COUNT 125 10^3/uL (134-434); RBC 4.44 M/mm3 (4.00-5.60); RDW 14.5 % (11.9-15.9); WHITE BLOOD COUNT 4.7 K/mm3 (4.0-10.0)
[2022-05-30 10:56] LABS: ALBUMIN 3.9 g/dl (3.4-5.0)
[2022-05-30 10:57] LABS: BLOOD UREA NITROGEN 12.2 mg/dL (7-18); CALCIUM 9.2 mg/dL (8.5-10.1)
[2022-05-30 10:59] LABS: CREATININE 0.7 mg/dL (0.55-1.3)
[2022-05-30 11:01] LABS: BILIRUBIN,TOTAL 0.9 mg/dL (0.2-1); TOT PROT 6.6 g/dl (6.4-8.2)
== END 2022-05-30 09:23 | disposition home or self-care (01) | DRG 897 ==
LOC: YASAS 17:14 → Y3N 20:35
PROVIDERS: ADMIT Allergy & Immunology; ATTEND Surgery
PROC: HZ2ZZZZ Detoxification Services for Substance Abuse Treatment (ICD-10-PCS; principal; 2022-05-26)
DX: F10.230 Alcohol dependence with withdrawal, uncomplicated (principal); F10.220 Alcohol dependence with intoxication, uncomplicated; E78.5 Hyperlipidemia, unspecified; E11.9 Type 2 diabetes mellitus without complications; Z79.84 Long term (current) use of oral hypoglycemic drugs; K21.9 Gastro-esophageal reflux disease without esophagitis; K29.70 Gastritis, unspecified, without bleeding
CPT/HCPCS: 36415; 80053; 82962; 85027; 86780; C9803-CS; U0003; U0005

== ENCOUNTER 2022-06-28 13:15 | Observation (INO) | payer OTHER ==
[2022-06-28 13:51] VITALS: BMI 26.1
[2022-06-28] MEDS ORDERED: FOLIC ACID INJECTION - 1 MG, THIAMINE HCL 100 MG, MULTIVIT INJECTION ADULT 10 ML in SOD... IVPB ONE (14:12)
[2022-06-28] MEDS ORDERED: ONDANSETRON 4 MG/2 ML VIAL IVPB ONE ×2 (14:12→14:37)
[2022-06-28] MEDS ORDERED: ACETAMINOPHEN 1000 MG/100 ML BAG IVPB ONE (14:37)
[2022-06-28] MEDS ORDERED: ONDANSETRON 4 MG/2 ML VIAL ONE ×3 (14:40→17:35)
[2022-06-28] MEDS ORDERED: ACETAMINOPHEN INJECTION 100 ML IVPB ONE (14:40)
[2022-06-28] MEDS ORDERED: FAMOTIDINE 20 MG/50 ML IVPB 20 MG/50 ML MG IVPB ONE (14:40)
[2022-06-28 14:49] LABS: BASO % 0.9 % (0-2.0); EOS % 0.2 % (0-4.5); HEMATOCRIT 44.4 % (35.4-49); HEMOGLOBIN 15.7 GM/dL (11.7-16.9); LYMPH % 22.4 % (8-40); MCH 30.1 pg (25.7-33.7); MCHC 35.4 g/dl (32.0-35.9); MEAN CELL VOLUME 85.1 fl (80-96); MEAN PLT VOLUME 6.9 fl (7.5-11.1); MONO % 6.7 % (3.8-10.2); NEUT % 69.8 % (42.8-82.8); PLATELET COUNT 170 10^3/uL (134-434); RBC 5.21 M/mm3 (4.00-5.60); RDW 13.7 % (11.9-15.9); VENOUS BASE EXCESS 0.2 mmol/L (-2-2); VENOUS O2 SATURATION 95.6 % (70-80); VENOUS PCO2 36.4 mmHg (38-52); VENOUS PH 7.436 (7.310-7.410); WHITE BLOOD COUNT 3.6 K/mm3 (4.0-10.0)
[2022-06-28 15:12] LABS: CALCIUM 8.9 mg/dL (8.5-10.1)
[2022-06-28 15:13] LABS: ALBUMIN 4.2 g/dl (3.4-5.0); BLOOD UREA NITROGEN 6.2 mg/dL (7-18); MAGNESIUM 2.5 mg/dL (1.8-2.4)
[2022-06-28 15:16] LABS: CREATININE 0.8 mg/dL (0.55-1.3); PHOSPHOROUS 3.9 mg/dL (2.5-4.9)
[2022-06-28 15:17] LABS: TOT PROT 8.2 g/dl (6.4-8.2)
[2022-06-28] MEDS ORDERED: ONDANSETRON 4 MG/2 ML VIAL IVPUSH ONE (17:28)
[2022-06-28] MEDS ORDERED: DEXTROSE 5%-NORMAL SALINE 1,000 ML IV SCH (17:30)
[2022-06-28] MEDS ORDERED: MAG HYDROX/AL HYDROX/SIMETH 30 ML UNIT-DOSE CUP PO ONE (17:31)
[2022-06-28] MEDS ORDERED: SUCRALFATE 1 GM TABLET (FP) PO ONE (17:32)
[2022-06-28] MEDS ORDERED: MAG HYDROX/AL HYDROX/SIMETH 30 ML UNIT-DOSE CUP ONE (17:34)
[2022-06-28] MEDS ORDERED: SUCRALFATE 1 GM TABLET (FP) ONE (17:34)
[2022-06-28] MEDS ORDERED: TRIMETHOBENZAMIDE HCL 200MG/2ML INJ IM ONE ×2 (20:46→21:02)
[2022-06-28] MEDS ORDERED: chlordiazePOXIDE HCL 25 MG CAPSULE PO ONE (22:30)
[2022-06-28] MEDS ORDERED: chlordiazePOXIDE HCL 25 MG CAPSULE PO PRN (22:30)
[2022-06-28] MEDS ORDERED: SODIUM CHLORIDE 1,000 ML IV SCH (23:00)
[2022-06-28] MEDS ORDERED: chlordiazePOXIDE HCL 25 MG CAPSULE ONE (23:38)
[2022-06-28] MEDS: chlordiazePOXIDE HCL 25 MG CAPSULE PO SCH (23:45)
[2022-06-29] MEDS ORDERED: chlordiazePOXIDE HCL 25 MG CAPSULE ONE ×3 (06:06→17:05)
[2022-06-29] MEDS: chlordiazePOXIDE HCL 25 MG CAPSULE PO SCH ×4 (06:08→22:03)
[2022-06-29] MEDS: ACAMPROSATE CALCIUM 333 MG TABLET.DR PO SCH ×3 (07:49→22:12)
[2022-06-29 07:50] LABS: BASO % 0.7 % (0-2.0); HEMATOCRIT 40.9 % (35.4-49); HEMOGLOBIN 14.5 GM/dL (11.7-16.9); LYMPH % 22.6 % (8-40); MCH 30.5 pg (25.7-33.7); MCHC 35.4 g/dl (32.0-35.9); MEAN CELL VOLUME 86.2 fl (80-96); MEAN PLT VOLUME 7.7 fl (7.5-11.1); NEUT % 67.7 % (42.8-82.8); PLATELET COUNT 125 10^3/uL (134-434); RBC 4.74 M/mm3 (4.00-5.60); RDW 13.9 % (11.9-15.9); WHITE BLOOD COUNT 4.1 K/mm3 (4.0-10.0)
[2022-06-29 08:11] LABS: ALBUMIN 3.7 g/dl (3.4-5.0); BLOOD UREA NITROGEN 8.7 mg/dL (7-18); CALCIUM 8.5 mg/dL (8.5-10.1); MAGNESIUM 2.6 mg/dL (1.8-2.4)
[2022-06-29] MEDS: INSULIN SLIDING SCALE (NOVOLOG) 1 VIAL SQ SCH ×4 (08:13→22:11)
[2022-06-29 08:14] LABS: CREATININE 0.7 mg/dL (0.55-1.3)
[2022-06-29 08:16] LABS: BILIRUBIN,TOTAL 2.4 mg/dL (0.2-1)
[2022-06-29 08:23] LABS: INR 1.03 (0.83-1.09)
[2022-06-29 08:26] LABS: ACTIVATED PTT 31.5 SECONDS (25.2-36.5)
[2022-06-29] MEDS ORDERED: FOLIC ACID 1 MG TABLET (FP) ONE (10:49)
[2022-06-29] MEDS ORDERED: PANTOPRAZOLE 40 MG TABLET PO ONE (10:49)
[2022-06-29] MEDS ORDERED: THIAMINE HCL 100 MG TABLET (FP) ONE (10:49)
[2022-06-29] MEDS: PANTOPRAZOLE 40 MG TABLET PO SCH (10:55)
[2022-06-29] MEDS: THIAMINE HCL 100 MG TABLET (FP) PO SCH ×2 (10:55→21:51)
[2022-06-29] MEDS: FOLIC ACID 1 MG TABLET (FP) PO SCH (10:55)
[2022-06-29 18:10] VITALS: RESP 18
[2022-06-29] MEDS ORDERED: ATORVASTATIN CA 40 MG TABLET (FP) PO SCH (22:00)
[2022-06-29] MEDS ORDERED: traZODone HCL 50 MG TABLET (FP) PO SCH (22:00)
[2022-06-30] MEDS: ACAMPROSATE CALCIUM 333 MG TABLET.DR PO SCH ×2 (06:09→14:49)
[2022-06-30] MEDS: chlordiazePOXIDE HCL 25 MG CAPSULE PO SCH ×2 (06:09→10:28)
[2022-06-30] MEDS: INSULIN SLIDING SCALE (NOVOLOG) 1 VIAL SQ SCH ×2 (06:27→11:55)
[2022-06-30] MEDS: PANTOPRAZOLE 40 MG TABLET PO SCH (10:27)
[2022-06-30] MEDS: THIAMINE HCL 100 MG TABLET (FP) PO SCH (10:27)
[2022-06-30] MEDS: FOLIC ACID 1 MG TABLET (FP) PO SCH (10:27)
[2022-06-30 11:00] LABS: BASO % 0.5 % (0-2.0); LYMPH % 17.5 % (8-40); MCH 30.1 pg (25.7-33.7); MCHC 35.1 g/dl (32.0-35.9); MEAN CELL VOLUME 85.6 fl (80-96); MEAN PLT VOLUME 7.8 fl (7.5-11.1); MONO % 5.4 % (3.8-10.2); NEUT % 74.6 % (42.8-82.8); PLATELET COUNT 102 10^3/uL (134-434); RBC 4.67 M/mm3 (4.00-5.60); RDW 13.8 % (11.9-15.9); WHITE BLOOD COUNT 4.1 K/mm3 (4.0-10.0)
[2022-06-30 11:22] LABS: CALCIUM 8.4 mg/dL (8.5-10.1)
[2022-06-30 11:23] LABS: ALBUMIN 3.4 g/dl (3.4-5.0); BLOOD UREA NITROGEN 14.5 mg/dL (7-18)
[2022-06-30 11:26] LABS: CREATININE 0.7 mg/dL (0.55-1.3)
[2022-06-30 11:27] LABS: BILIRUBIN,TOTAL 1.6 mg/dL (0.2-1); TOT PROT 6.4 g/dl (6.4-8.2)
[2022-06-30 14:43] VITALS: BP 125/85; PULSE 95; TEMP 98.5
[2022-07-01] MEDS ORDERED: chlordiazePOXIDE HCL 10 MG CAPSULE PO PRN
[2022-07-01] MEDS ORDERED: chlordiazePOXIDE HCL 10 MG CAPSULE PO SCH (05:00)
[2022-07-02] MEDS ORDERED: chlordiazePOXIDE HCL 10 MG CAPSULE PO SCH (05:00)
[2022-07-03] MEDS ORDERED: chlordiazePOXIDE HCL 10 MG CAPSULE PO ONE (05:00)
== END 2022-06-30 16:39 | disposition left against medical advice (07) ==
LOC: JER 13:15 → JERBED 20:45 → J6S 06-29 18:36
PROVIDERS: ADMIT Internal Medicine; ATTEND Internal Medicine
PROC: 3E033NZ Introduction of Analgesics, Hypnotics, Sedatives into Peripheral Vein, Percutaneous Approach (ICD-10-PCS; principal; 2022-06-28)
PROC: 3E033GC Introduction of Other Therapeutic Substance into Peripheral Vein, Percutaneous Approach (ICD-10-PCS; 2022-06-28)
PROC: 3E013VG Introduction of Insulin into Subcutaneous Tissue, Percutaneous Approach (ICD-10-PCS; 2022-06-28)
PROC: 3E0337Z Introduction of Electrolytic and Water Balance Substance into Peripheral Vein, Percutaneous Approach (ICD-10-PCS; 2022-06-28)
PROC: 3E023GC Introduction of Other Therapeutic Substance into Muscle, Percutaneous Approach (ICD-10-PCS; 2022-06-28)
DX: F10.99 Alcohol use, unspecified with unspecified alcohol-induced disorder (principal); R10.13 Epigastric pain; E11.9 Type 2 diabetes mellitus without complications; Z91.14 Patient's other noncompliance with medication regimen; R11.2 Nausea with vomiting, unspecified
CPT/HCPCS: 0241U-QW; 36415; 74177-TC; 76705-TC; 80053; 80307; 82803; 82962; 83690; 83735; 84100; 84484; 85025; 85610; 85730; 93005; 93010; 96361; 96365; 96367; 96372; 96375; 96376; 99285-25; G0378; Q9967

== ENCOUNTER 2022-07-22 21:05 | Inpatient (IN) | payer OTHER ==
[2022-07-22 21:42] VITALS: BMI 28.1
[2022-07-22] MEDS ORDERED: chlordiazePOXIDE HCL 25 MG CAPSULE PO PRN (21:51)
[2022-07-22] MEDS ORDERED: METOPROLOL TARTRATE 50 MG TABLET (FP) PO ONE (21:58)
[2022-07-22] MEDS ORDERED: ACETAMINOPHEN 325 MG TABLET (FP) PO PRN (21:59)
[2022-07-22] MEDS ORDERED: BISMUTH SUBSALICYLATE 524 MG/30 ML PO PRN (21:59)
[2022-07-22] MEDS ORDERED: ONDANSETRON *ODT* 4 MG TABLET SL PRN (21:59)
[2022-07-22] MEDS ORDERED: BENZOCAINE/MENTHOL (CHLORASEPTIC ) LOZENGE MM PRN (21:59)
[2022-07-22] MEDS ORDERED: DICYCLOMINE HCL 10 MG CAPSULE PO PRN (21:59)
[2022-07-22] MEDS ORDERED: MAGNESIUM HYDROX 2400MG/30ML ORAL SUSPENSION 30 ML CUP PO PRN (21:59)
[2022-07-22] MEDS ORDERED: P-EPHED 60MG/TRIPROLIDI 2.5MG TABLET PO PRN (21:59)
[2022-07-22] MEDS ORDERED: POLYETHYLENE GLYCOL (HEALTHYLAX) 3350 17 GM PACKET PO PRN (21:59)
[2022-07-22] MEDS ORDERED: LOPERAMIDE HCL 2 MG CAPSULE PO PRN (21:59)
[2022-07-22] MEDS ORDERED: BENZONATATE 200 MG CAPSULE PO PRN (21:59)
[2022-07-22] MEDS ORDERED: guaiFENesin 600 MG TABLET.ER (FP) PO PRN (21:59)
[2022-07-22] MEDS ORDERED: MAG HYDROX/AL HYDROX/SIMETH 30 ML UNIT-DOSE CUP PO PRN (21:59)
[2022-07-22] MEDS ORDERED: chlordiazePOXIDE HCL 25 MG CAPSULE PO SCH (23:00)
[2022-07-22] MEDS ORDERED: TRIMETHOBENZAMIDE HCL 200MG/2ML INJ IM ONE ×2 (23:17→23:22)
[2022-07-22] MEDS ORDERED: LORazepam 2 MG/ML SDV VIAL IM ONE (23:18)
[2022-07-22] MEDS: INSULIN SLIDING SCALE (NOVOLOG) 1 VIAL SQ SCH (23:38)
[2022-07-22] MEDS ORDERED: INSULIN (NOVOLOG) ASPART 100 UNITS/ML 10ML VIAL ONE (23:40)
[2022-07-23] MEDS: chlordiazePOXIDE HCL 25 MG CAPSULE PO SCH ×5 (00:52→22:12)
[2022-07-23] MEDS: ATORVASTATIN CA 20 MG TABLET (FP) PO SCH ×2 (00:52→22:12)
[2022-07-23] MEDS: PANTOPRAZOLE 40 MG TABLET PO SCH ×2 (00:53→10:10)
[2022-07-23] MEDS: metFORMIN HCL 500 MG TABLET (FP) PO SCH ×3 (00:53→22:12)
[2022-07-23] MEDS: THIAMINE HCL 100 MG TABLET (FP) PO SCH ×2 (00:54→22:12)
[2022-07-23] MEDS ORDERED: METOPROLOL TARTRATE 50 MG TABLET (FP) PO ONE (01:00)
[2022-07-23] MEDS: INSULIN SLIDING SCALE (NOVOLOG) 1 VIAL SQ SCH ×4 (06:49→22:12)
[2022-07-23] MEDS ORDERED: glipiZIDE-XL 10 MG TAB.ER.24 (FP) PO SCH (10:00)
[2022-07-23] MEDS: PRENATAL VITAMINS W/ FOLIC ACID TABLET (FP) PO SCH (10:11)
[2022-07-23] MEDS: FOLIC ACID 1 MG TABLET (FP) PO SCH (11:25)
[2022-07-23] MEDS: glipiZIDE-XL 5 MG TAB.ER.24 PO SCH (11:30)
[2022-07-23] MEDS: MELATONIN 5 MG TABLETS PO PRN (22:13)
[2022-07-24] MEDS: chlordiazePOXIDE HCL 25 MG CAPSULE PO SCH ×4 (05:37→22:28)
[2022-07-24] MEDS: glipiZIDE-XL 5 MG TAB.ER.24 PO SCH (06:30)
[2022-07-24] MEDS: INSULIN SLIDING SCALE (NOVOLOG) 1 VIAL SQ SCH ×4 (06:30→22:27)
[2022-07-24] MEDS ORDERED: glipiZIDE-XL 5 MG TAB.ER.24 PO SCH (10:00)
[2022-07-24] MEDS: PANTOPRAZOLE 40 MG TABLET PO SCH (10:37)
[2022-07-24] MEDS: PRENATAL VITAMINS W/ FOLIC ACID TABLET (FP) PO SCH (10:37)
[2022-07-24] MEDS: metFORMIN HCL 500 MG TABLET (FP) PO SCH ×2 (10:37→22:27)
[2022-07-24] MEDS: FOLIC ACID 1 MG TABLET (FP) PO SCH (10:38)
[2022-07-24 11:23] LABS: HEMATOCRIT 41.2 % (35.4-49); HEMOGLOBIN 14.3 GM/dL (11.7-16.9); MCH 29.7 pg (25.7-33.7); MCHC 34.7 g/dl (32.0-35.9); MEAN CELL VOLUME 85.7 fl (80-96); MEAN PLT VOLUME 7.8 fl (7.5-11.1); PLATELET COUNT 129 10^3/uL (134-434); RDW 14.4 % (11.9-15.9); WHITE BLOOD COUNT 5.4 K/mm3 (4.0-10.0)
[2022-07-24 11:45] LABS: ALBUMIN 3.8 g/dl (3.4-5.0); BILIRUBIN,TOTAL 1.9 mg/dL (0.2-1); BLOOD UREA NITROGEN 12.2 mg/dL (7-18); CREATININE 0.7 mg/dL (0.55-1.3)
[2022-07-24] MEDS ORDERED: INSULIN (NOVOLOG) ASPART 100 UNITS/ML 10ML VIAL ONE ×3 (11:46→22:49)
[2022-07-24 11:48] LABS: CALCIUM 9.2 mg/dL (8.5-10.1)
[2022-07-24] MEDS ORDERED: POTASSIUM CHLORIDE ORAL LIQUID 20 MEQ/15 ML PO ONE (16:41)
[2022-07-24] MEDS: POTASSIUM CHLORIDE ORAL LIQUID 20 MEQ/15 ML PO SCH (22:27)
[2022-07-24] MEDS: THIAMINE HCL 100 MG TABLET (FP) PO SCH (22:27)
[2022-07-24] MEDS: ATORVASTATIN CA 20 MG TABLET (FP) PO SCH (22:27)
[2022-07-24] MEDS: MELATONIN 5 MG TABLETS PO PRN (22:28)
[2022-07-25] MEDS ORDERED: chlordiazePOXIDE HCL 10 MG CAPSULE PO PRN
[2022-07-25] MEDS: chlordiazePOXIDE HCL 10 MG CAPSULE PO SCH ×4 (05:23→22:07)
[2022-07-25] MEDS: glipiZIDE-XL 5 MG TAB.ER.24 PO SCH (07:02)
[2022-07-25] MEDS: INSULIN SLIDING SCALE (NOVOLOG) 1 VIAL SQ SCH ×4 (07:06→22:09)
[2022-07-25] MEDS: POTASSIUM CHLORIDE ORAL LIQUID 20 MEQ/15 ML PO SCH ×2 (10:39→22:09)
[2022-07-25] MEDS: metFORMIN HCL 500 MG TABLET (FP) PO SCH ×2 (10:40→22:06)
[2022-07-25] MEDS: PRENATAL VITAMINS W/ FOLIC ACID TABLET (FP) PO SCH (10:40)
[2022-07-25] MEDS: FOLIC ACID 1 MG TABLET (FP) PO SCH (10:40)
[2022-07-25] MEDS: PANTOPRAZOLE 40 MG TABLET PO SCH (10:40)
[2022-07-25] MEDS ORDERED: INSULIN (NOVOLOG) ASPART 100 UNITS/ML 10ML VIAL ONE (12:11)
[2022-07-25] MEDS: THIAMINE HCL 100 MG TABLET (FP) PO SCH (22:06)
[2022-07-25] MEDS: ATORVASTATIN CA 20 MG TABLET (FP) PO SCH (22:06)
[2022-07-26] MEDS: chlordiazePOXIDE HCL 10 MG CAPSULE PO SCH ×2 (05:41→17:43)
[2022-07-26] MEDS: glipiZIDE-XL 5 MG TAB.ER.24 PO SCH (06:09)
[2022-07-26] MEDS: INSULIN SLIDING SCALE (NOVOLOG) 1 VIAL SQ SCH ×4 (06:09→22:10)
[2022-07-26 06:33] VITALS: RESP 18
[2022-07-26] MEDS: PANTOPRAZOLE 40 MG TABLET PO SCH (10:15)
[2022-07-26] MEDS: metFORMIN HCL 500 MG TABLET (FP) PO SCH ×2 (10:15→22:07)
[2022-07-26] MEDS: POTASSIUM CHLORIDE ORAL LIQUID 20 MEQ/15 ML PO SCH (10:15)
[2022-07-26] MEDS: PRENATAL VITAMINS W/ FOLIC ACID TABLET (FP) PO SCH (10:15)
[2022-07-26] MEDS: FOLIC ACID 1 MG TABLET (FP) PO SCH (10:59)
[2022-07-26] MEDS: ATORVASTATIN CA 20 MG TABLET (FP) PO SCH (22:07)
[2022-07-26] MEDS: THIAMINE HCL 100 MG TABLET (FP) PO SCH (22:07)
[2022-07-27] MEDS ORDERED: chlordiazePOXIDE HCL 10 MG CAPSULE PO ONE (05:00)
[2022-07-27] MEDS: INSULIN SLIDING SCALE (NOVOLOG) 1 VIAL SQ SCH (06:37)
[2022-07-27] MEDS: glipiZIDE-XL 5 MG TAB.ER.24 PO SCH (06:37)
[2022-07-27] MEDS: PRENATAL VITAMINS W/ FOLIC ACID TABLET (FP) PO SCH (10:00)
[2022-07-27] MEDS: metFORMIN HCL 500 MG TABLET (FP) PO SCH (10:00)
[2022-07-27] MEDS: PANTOPRAZOLE 40 MG TABLET PO SCH (10:00)
[2022-07-27] MEDS: FOLIC ACID 1 MG TABLET (FP) PO SCH (10:00)
[2022-07-27 14:26] VITALS: BP 131/83; PULSE 88; TEMP 96.9
== END 2022-07-27 10:08 | disposition home or self-care (01) | DRG 775 ==
LOC: YASAS 21:05 → Y6N 23:56
PROVIDERS: ADMIT Allergy & Immunology; ATTEND Surgery
PROC: HZ2ZZZZ Detoxification Services for Substance Abuse Treatment (ICD-10-PCS; principal; 2022-07-22)
DX: F10.230 Alcohol dependence with withdrawal, uncomplicated (principal); F10.282 Alcohol dependence with alcohol-induced sleep disorder; F10.24 Alcohol dependence with alcohol-induced mood disorder; E78.00 Pure hypercholesterolemia, unspecified; K21.9 Gastro-esophageal reflux disease without esophagitis; E11.9 Type 2 diabetes mellitus without complications; Z79.84 Long term (current) use of oral hypoglycemic drugs
CPT/HCPCS: 0241U-QW; 36415; 70450-TC; 71045-TC-FY; 72125-TC; 74177-TC; 80053; 80307; 81003; 82962; 83690; 83735; 84100; 84132; 84484; 85025; 85027; 86780; 87086; 93005; 93010; 99283-25; Q9967

== ENCOUNTER 2022-08-21 11:41 | Inpatient (IN) | payer OTHER ==
[2022-08-21 12:15] VITALS: BMI 28.3
[2022-08-21] MEDS ORDERED: MAG HYDROX/AL HYDROX/SIMETH 30 ML UNIT-DOSE CUP PO PRN (12:28)
[2022-08-21] MEDS ORDERED: BISMUTH SUBSALICYLATE 524 MG/30 ML PO PRN (12:28)
[2022-08-21] MEDS ORDERED: IBUPROFEN 400 MG TABLET (FP) PO PRN (12:28)
[2022-08-21] MEDS ORDERED: LORazepam 2 MG TABLET PO ONE (12:28)
[2022-08-21] MEDS ORDERED: NICOTINE 10 MG CARTRIDGE (INHALER) IH PRN (12:28)
[2022-08-21] MEDS ORDERED: DICYCLOMINE HCL 10 MG CAPSULE PO PRN (12:28)
[2022-08-21] MEDS ORDERED: BENZONATATE 200 MG CAPSULE PO PRN (12:28)
[2022-08-21] MEDS ORDERED: LOPERAMIDE HCL 2 MG CAPSULE PO PRN (12:28)
[2022-08-21] MEDS ORDERED: IBUPROFEN 600 MG TABLET (FP) PO PRN (12:28)
[2022-08-21] MEDS ORDERED: POLYETHYLENE GLYCOL (HEALTHYLAX) 3350 17 GM PACKET PO PRN (12:28)
[2022-08-21] MEDS ORDERED: guaiFENesin 600 MG TABLET.ER (FP) PO PRN (12:28)
[2022-08-21] MEDS ORDERED: NALOXONE HCL (KLOXXADO) 8 MG SPRAY NS PRN (12:28)
[2022-08-21] MEDS ORDERED: LORazepam 1 MG TABLET PO PRN (12:28)
[2022-08-21] MEDS ORDERED: ACETAMINOPHEN 325 MG TABLET (FP) PO PRN (12:28)
[2022-08-21] MEDS ORDERED: METHOCARBAMOL 500 MG TABLET PO PRN (12:28)
[2022-08-21] MEDS ORDERED: hydrOXYzine PAMOATE 25 MG CAPSULE (FP) PO PRN (12:28)
[2022-08-21] MEDS ORDERED: BENZOCAINE/MENTHOL (CHLORASEPTIC ) LOZENGE MM PRN (12:28)
[2022-08-21] MEDS ORDERED: ONDANSETRON *ODT* 4 MG TABLET SL PRN (12:28)
[2022-08-21] MEDS ORDERED: MAGNESIUM HYDROX 2400MG/30ML ORAL SUSPENSION 30 ML CUP PO PRN (12:28)
[2022-08-21] MEDS ORDERED: NALOXONE HCL 0.4 MG/ML VIAL IM PRN (12:28)
[2022-08-21] MEDS ORDERED: INSULIN (NOVOLOG) ASPART 100 UNITS/ML 10ML VIAL SQ ONE (12:39)
[2022-08-21] MEDS: PRENATAL VITAMINS W/ FOLIC ACID TABLET (FP) PO SCH (12:44)
[2022-08-21] MEDS ORDERED: NICOTINE 7 MG/24 HOURS TOPICAL PATCH TD ONE (12:53)
[2022-08-21] MEDS: FAMOTIDINE 20 MG TABLET PO SCH (13:47)
[2022-08-21] MEDS: NICOTINE 7 MG/24 HOURS TOPICAL PATCH TD SCH (15:39)
[2022-08-21 16:43] LABS: BLOOD UREA NITROGEN 7.9 mg/dL (7-18); CALCIUM 9.1 mg/dL (8.5-10.1)
[2022-08-21 16:44] LABS: ALBUMIN 4.4 g/dl (3.4-5.0)
[2022-08-21 16:47] LABS: CREATININE 0.8 mg/dL (0.55-1.3)
[2022-08-21 16:48] LABS: BILIRUBIN,TOTAL 2.4 mg/dL (0.2-1); TOT PROT 8.5 g/dl (6.4-8.2)
[2022-08-21 16:52] LABS: HEMOGLOBIN 15.3 GM/dL (11.7-16.9); MCH 30.1 pg (25.7-33.7); MCHC 34.8 g/dl (32.0-35.9); MEAN CELL VOLUME 86.4 fl (80-96); MEAN PLT VOLUME 7.9 fl (7.5-11.1); PLATELET COUNT 112 10^3/uL (134-434); RBC 5.09 M/mm3 (4.00-5.60); RDW 14.7 % (11.9-15.9); WHITE BLOOD COUNT 3.9 K/mm3 (4.0-10.0)
[2022-08-21] MEDS: INSULIN SLIDING SCALE (NOVOLOG) 1 VIAL SQ SCH (17:14)
[2022-08-21] MEDS: metFORMIN HCL 500 MG TABLET (FP) PO SCH (17:15)
[2022-08-21] MEDS: LORazepam 2 MG TABLET PO SCH ×2 (17:15→22:13)
[2022-08-21] MEDS: THIAMINE HCL 100 MG TABLET (FP) PO SCH (22:13)
[2022-08-21] MEDS: MELATONIN 5 MG TABLETS PO SCH (22:13)
[2022-08-21] MEDS: ATORVASTATIN CA 40 MG TABLET (FP) PO SCH (22:13)
[2022-08-22] MEDS ORDERED: INSULIN SLIDING SCALE (NOVOLOG) 1 VIAL SQ ONE ×3 (05:21→11:38)
[2022-08-22] MEDS: LORazepam 2 MG TABLET PO SCH ×4 (05:22→22:11)
[2022-08-22] MEDS ORDERED: glipiZIDE-XL 10 MG TAB.ER.24 (FP) PO SCH (07:00)
[2022-08-22] MEDS: metFORMIN HCL 500 MG TABLET (FP) PO SCH ×2 (07:08→17:29)
[2022-08-22] MEDS: INSULIN SLIDING SCALE (NOVOLOG) 1 VIAL SQ SCH ×3 (07:10→17:30)
[2022-08-22] MEDS: PRENATAL VITAMINS W/ FOLIC ACID TABLET (FP) PO SCH (10:14)
[2022-08-22] MEDS: FAMOTIDINE 20 MG TABLET PO SCH (10:14)
[2022-08-22] MEDS: NICOTINE 7 MG/24 HOURS TOPICAL PATCH TD SCH (10:15)
[2022-08-22] MEDS: LACTULOSE 20 GM/30 ML UDC (FOR ORAL USE ONLY) PO SCH ×2 (14:13→22:11)
[2022-08-22] MEDS: MELATONIN 5 MG TABLETS PO SCH (22:11)
[2022-08-22] MEDS: ATORVASTATIN CA 40 MG TABLET (FP) PO SCH (22:11)
[2022-08-22] MEDS: THIAMINE HCL 100 MG TABLET (FP) PO SCH (22:11)
[2022-08-23] MEDS ORDERED: INSULIN SLIDING SCALE (NOVOLOG) 1 VIAL SQ ONE ×2 (05:08→11:56)
[2022-08-23] MEDS: LORazepam 1 MG TABLET PO SCH ×4 (05:20→22:11)
[2022-08-23] MEDS: LACTULOSE 20 GM/30 ML UDC (FOR ORAL USE ONLY) PO SCH ×3 (05:20→22:12)
[2022-08-23] MEDS: metFORMIN HCL 500 MG TABLET (FP) PO SCH ×2 (06:00→17:22)
[2022-08-23] MEDS: glipiZIDE-XL 5 MG TAB.ER.24 PO SCH (06:00)
[2022-08-23] MEDS: INSULIN SLIDING SCALE (NOVOLOG) 1 VIAL SQ SCH ×3 (06:01→17:22)
[2022-08-23] MEDS: NICOTINE 7 MG/24 HOURS TOPICAL PATCH TD SCH (10:12)
[2022-08-23] MEDS: PRENATAL VITAMINS W/ FOLIC ACID TABLET (FP) PO SCH (10:12)
[2022-08-23] MEDS: FAMOTIDINE 20 MG TABLET PO SCH (10:12)
[2022-08-23] MEDS: MELATONIN 5 MG TABLETS PO SCH (22:10)
[2022-08-23] MEDS: THIAMINE HCL 100 MG TABLET (FP) PO SCH (22:10)
[2022-08-23] MEDS: ATORVASTATIN CA 40 MG TABLET (FP) PO SCH (22:11)
[2022-08-24] MEDS ORDERED: LORazepam 0.5 MG TABLET PO PRN
[2022-08-24] MEDS: LACTULOSE 20 GM/30 ML UDC (FOR ORAL USE ONLY) PO SCH ×3 (05:36→22:09)
[2022-08-24] MEDS: LORazepam 0.5 MG TABLET PO SCH ×4 (05:36→23:07)
[2022-08-24] MEDS: INSULIN SLIDING SCALE (NOVOLOG) 1 VIAL SQ SCH ×3 (05:59→17:00)
[2022-08-24] MEDS: glipiZIDE-XL 5 MG TAB.ER.24 PO SCH (06:01)
[2022-08-24] MEDS: metFORMIN HCL 500 MG TABLET (FP) PO SCH ×2 (06:01→17:31)
[2022-08-24] MEDS: NICOTINE 7 MG/24 HOURS TOPICAL PATCH TD SCH (10:12)
[2022-08-24] MEDS: PRENATAL VITAMINS W/ FOLIC ACID TABLET (FP) PO SCH (10:12)
[2022-08-24] MEDS: FAMOTIDINE 20 MG TABLET PO SCH (10:12)
[2022-08-24] MEDS: MELATONIN 5 MG TABLETS PO SCH (22:09)
[2022-08-24] MEDS: ATORVASTATIN CA 40 MG TABLET (FP) PO SCH (22:09)
[2022-08-24] MEDS: THIAMINE HCL 100 MG TABLET (FP) PO SCH (22:09)
[2022-08-25] MEDS ORDERED: LORazepam 0.5 MG TABLET PO ONE (05:00)
[2022-08-25] MEDS ORDERED: INSULIN SLIDING SCALE (NOVOLOG) 1 VIAL SQ ONE ×2 (05:13→06:26)
[2022-08-25] MEDS: LACTULOSE 20 GM/30 ML UDC (FOR ORAL USE ONLY) PO SCH (05:55)
[2022-08-25] MEDS: glipiZIDE-XL 5 MG TAB.ER.24 PO SCH (06:21)
[2022-08-25] MEDS: metFORMIN HCL 500 MG TABLET (FP) PO SCH (06:21)
[2022-08-25] MEDS: INSULIN SLIDING SCALE (NOVOLOG) 1 VIAL SQ SCH ×2 (06:23→11:40)
[2022-08-25 09:33] VITALS: BP 133/74; PULSE 89; RESP 16; TEMP 98.2
[2022-08-25] MEDS: PRENATAL VITAMINS W/ FOLIC ACID TABLET (FP) PO SCH (09:34)
[2022-08-25] MEDS: NICOTINE 7 MG/24 HOURS TOPICAL PATCH TD SCH (09:35)
[2022-08-25] MEDS: FAMOTIDINE 20 MG TABLET PO SCH (09:35)
== END 2022-08-25 12:05 | disposition home or self-care (01) | DRG 897 ==
LOC: YASAS 11:41 → Y3N 12:43
PROVIDERS: ADMIT Allergy & Immunology; ATTEND Surgery
PROC: HZ2ZZZZ Detoxification Services for Substance Abuse Treatment (ICD-10-PCS; principal; 2022-08-21)
DX: F10.230 Alcohol dependence with withdrawal, uncomplicated (principal); E72.20 Disorder of urea cycle metabolism, unspecified; F17.210 Nicotine dependence, cigarettes, uncomplicated; E78.5 Hyperlipidemia, unspecified; E11.65 Type 2 diabetes mellitus with hyperglycemia; Z79.4 Long term (current) use of insulin; K21.9 Gastro-esophageal reflux disease without esophagitis
CPT/HCPCS: 36415; 80053; 82140; 82962; 85027; 86780; 87811; C9803-CS; Q0162; U0003; U0005

== ENCOUNTER 2022-09-12 06:37 | Emergency (ER) | payer OTHER ==
[2022-09-12 07:06] VITALS: BP 149/89; PULSE 125; RESP 18; TEMP 98.2; BMI 30.9
[2022-09-12] MEDS ORDERED: FAMOTIDINE 20 MG/50 ML IVPB 20 MG/50 ML MG IVPB ONE ×2 (07:32→07:38)
[2022-09-12] MEDS ORDERED: ONDANSETRON 4 MG/2 ML VIAL IVPUSH ONE ×2 (07:32→10:22)
[2022-09-12] MEDS ORDERED: SODIUM CHLORIDE 0.9% 500 ML INFUS.BAG IV ONE (07:32)
[2022-09-12] MEDS ORDERED: ONDANSETRON 4 MG/2 ML VIAL ONE ×2 (07:38→10:30)
[2022-09-12 08:17] LABS: BASO % 0.6 % (0-2.0); HEMATOCRIT 45.5 % (35.4-49); HEMOGLOBIN 16.1 GM/dL (11.7-16.9); LYMPH % 27.3 % (8-40); MCH 30.1 pg (25.7-33.7); MCHC 35.3 g/dl (32.0-35.9); MEAN CELL VOLUME 85.3 fl (80-96); MEAN PLT VOLUME 6.8 fl (7.5-11.1); MONO % 7.9 % (3.8-10.2); NEUT % 63.2 % (42.8-82.8); PLATELET COUNT 202 10^3/uL (134-434); RBC 5.33 M/mm3 (4.00-5.60); RDW 14.6 % (11.9-15.9); WHITE BLOOD COUNT 3.3 K/mm3 (4.0-10.0)
[2022-09-12 08:21] LABS: EPI CELLS 3 /uL (0-25.1); HYALINE CASTS 0 /uL (0-3.1); URINE APPEARANCE CLEAR; URINE BACTERIA 7 /uL (0-1359); URINE BILIRUBIN NEGATIVE (NEGATIVE); URINE COLOR YELLOW; URINE GLUCOSE (UA) NEGATIVE (NEGATIVE); URINE KETONE NEGATIVE (NEGATIVE); URINE LEUK ESTERASE NEGATIVE (NEGATIVE); URINE NITRITE NEGATIVE (NEGATIVE); URINE PROTEIN 1+ (NEGATIVE); URINE RBC 16 /uL (0-23.9); URINE WBC 9 /uL (0-25.8)
[2022-09-12 08:24] LABS: INR 0.99 (0.83-1.09); PROTHROMBIN TIME (PATIENT) 11.5 SEC (9.7-13.0)
[2022-09-12 08:27] LABS: ACTIVATED PTT 32.1 SECONDS (25.2-36.5)
[2022-09-12 09:49] LABS: POTASSIUM 4.2 mmol/L (3.5-5.1)
[2022-09-12] MEDS ORDERED: chlordiazePOXIDE HCL 25 MG CAPSULE PO ONE (09:50)
[2022-09-12 09:51] LABS: CALCIUM 9.1 mg/dL (8.5-10.1)
[2022-09-12 09:52] LABS: ALBUMIN 4.4 g/dl (3.4-5.0); BLOOD UREA NITROGEN 3.8 mg/dL (7-18); MAGNESIUM 2.5 mg/dL (1.8-2.4)
[2022-09-12 09:55] LABS: CREATININE 0.8 mg/dL (0.55-1.3); PHOSPHOROUS 4.5 mg/dL (2.5-4.9)
[2022-09-12 09:56] LABS: BILIRUBIN,TOTAL 1.6 mg/dL (0.2-1)
[2022-09-12] MEDS ORDERED: chlordiazePOXIDE HCL 25 MG CAPSULE ONE (10:00)
== END 2022-09-12 11:38 | disposition home or self-care (01) ==
LOC: JER 06:37
PROC: 3E033GC Introduction of Other Therapeutic Substance into Peripheral Vein, Percutaneous Approach (ICD-10-PCS; principal; 2022-09-12)
PROC: 3E033GC Introduction of Other Therapeutic Substance into Peripheral Vein, Percutaneous Approach (ICD-10-PCS; 2022-09-12)
PROC: 3E033GC Introduction of Other Therapeutic Substance into Peripheral Vein, Percutaneous Approach (ICD-10-PCS; 2022-09-12)
DX: R11.2 Nausea with vomiting, unspecified (principal); R10.84 Generalized abdominal pain; F10.920 Alcohol use, unspecified with intoxication, uncomplicated
CPT/HCPCS: 36415; 71045-TC-FY; 80053; 81003; 83690; 83735; 84100; 84484; 85025; 85610; 85730; 87086; 93005; 93010; 99285-25

== ENCOUNTER 2022-09-12 11:59 | Inpatient (IN) | payer OTHER ==
[2022-09-12 12:33] VITALS: BMI 27.3
[2022-09-12] MEDS ORDERED: P-EPHED 60MG/TRIPROLIDI 2.5MG TABLET PO PRN (12:48)
[2022-09-12] MEDS ORDERED: BISMUTH SUBSALICYLATE 524 MG/30 ML PO PRN (12:48)
[2022-09-12] MEDS ORDERED: LOPERAMIDE HCL 2 MG CAPSULE PO PRN (12:48)
[2022-09-12] MEDS ORDERED: MAG HYDROX/AL HYDROX/SIMETH 30 ML UNIT-DOSE CUP PO PRN (12:48)
[2022-09-12] MEDS ORDERED: NALOXONE HCL (KLOXXADO) 8 MG SPRAY NS PRN (12:48)
[2022-09-12] MEDS ORDERED: MAGNESIUM HYDROX 2400MG/30ML ORAL SUSPENSION 30 ML CUP PO PRN (12:48)
[2022-09-12] MEDS ORDERED: guaiFENesin 600 MG TABLET.ER (FP) PO PRN (12:48)
[2022-09-12] MEDS ORDERED: ONDANSETRON *ODT* 4 MG TABLET SL PRN (12:48)
[2022-09-12] MEDS ORDERED: POLYETHYLENE GLYCOL (HEALTHYLAX) 3350 17 GM PACKET PO PRN (12:48)
[2022-09-12] MEDS ORDERED: IBUPROFEN 400 MG TABLET (FP) PO PRN (12:48)
[2022-09-12] MEDS ORDERED: ACETAMINOPHEN 325 MG TABLET (FP) PO PRN (12:48)
[2022-09-12] MEDS ORDERED: NALOXONE HCL 0.4 MG/ML VIAL IM PRN (12:48)
[2022-09-12] MEDS ORDERED: IBUPROFEN 600 MG TABLET (FP) PO PRN (12:48)
[2022-09-12] MEDS ORDERED: BENZOCAINE/MENTHOL (CHLORASEPTIC ) LOZENGE MM PRN (12:48)
[2022-09-12] MEDS ORDERED: DICYCLOMINE HCL 10 MG CAPSULE PO PRN (12:48)
[2022-09-12] MEDS ORDERED: BENZONATATE 200 MG CAPSULE PO PRN (12:48)
[2022-09-12] MEDS ORDERED: METOPROLOL TARTRATE 25 MG TABLET (FP) PO ONE (12:57)
[2022-09-12] MEDS ORDERED: TRIMETHOBENZAMIDE HCL 200MG/2ML INJ IM ONE ×2 (12:57→13:32)
[2022-09-12] MEDS ORDERED: chlordiazePOXIDE HCL 25 MG CAPSULE PO PRN (12:58)
[2022-09-12] MEDS ORDERED: chlordiazePOXIDE HCL 25 MG CAPSULE PO ONE (13:00)
[2022-09-12] MEDS ORDERED: METOPROLOL TARTRATE 25 MG TABLET (FP) ONE (13:32)
[2022-09-12] MEDS ORDERED: chlordiazePOXIDE HCL 25 MG CAPSULE ONE (13:42)
[2022-09-12] MEDS: FAMOTIDINE 20 MG TABLET PO SCH ×2 (14:06→14:59)
[2022-09-12] MEDS: INSULIN SLIDING SCALE (NOVOLOG) 1 VIAL SQ SCH ×3 (14:07→22:37)
[2022-09-12] MEDS: metFORMIN HCL 500 MG TABLET (FP) PO SCH (17:07)
[2022-09-12] MEDS: chlordiazePOXIDE HCL 25 MG CAPSULE PO SCH ×2 (17:07→22:36)
[2022-09-12] MEDS: ATORVASTATIN CA 40 MG TABLET (FP) PO SCH (22:36)
[2022-09-12] MEDS: THIAMINE HCL 100 MG TABLET (FP) PO SCH (22:36)
[2022-09-13] MEDS: chlordiazePOXIDE HCL 25 MG CAPSULE PO SCH ×4 (05:23→22:17)
[2022-09-13] MEDS: INSULIN SLIDING SCALE (NOVOLOG) 1 VIAL SQ SCH ×4 (06:16→22:15)
[2022-09-13] MEDS: metFORMIN HCL 500 MG TABLET (FP) PO SCH ×2 (06:16→17:22)
[2022-09-13] MEDS: glipiZIDE-XL 5 MG TAB.ER.24 PO SCH (07:20)
[2022-09-13] MEDS: PRENATAL VITAMINS W/ FOLIC ACID TABLET (FP) PO SCH (10:07)
[2022-09-13] MEDS: FAMOTIDINE 20 MG TABLET PO SCH (10:08)
[2022-09-13] MEDS ORDERED: INSULIN (NOVOLOG) ASPART 100 UNITS/ML 10ML VIAL ONE (11:52)
[2022-09-13] MEDS: MELATONIN 5 MG TABLETS PO PRN (22:16)
[2022-09-13] MEDS: ATORVASTATIN CA 40 MG TABLET (FP) PO SCH (22:17)
[2022-09-13] MEDS: THIAMINE HCL 100 MG TABLET (FP) PO SCH (22:17)
[2022-09-14] MEDS: chlordiazePOXIDE HCL 25 MG CAPSULE PO SCH ×4 (05:10→22:16)
[2022-09-14] MEDS: metFORMIN HCL 500 MG TABLET (FP) PO SCH ×2 (06:23→17:18)
[2022-09-14] MEDS: glipiZIDE-XL 5 MG TAB.ER.24 PO SCH (06:23)
[2022-09-14] MEDS: INSULIN SLIDING SCALE (NOVOLOG) 1 VIAL SQ SCH ×4 (07:18→22:18)
[2022-09-14] MEDS: FAMOTIDINE 20 MG TABLET PO SCH (10:06)
[2022-09-14] MEDS: PRENATAL VITAMINS W/ FOLIC ACID TABLET (FP) PO SCH (10:06)
[2022-09-14] MEDS: hydrOXYzine PAMOATE 25 MG CAPSULE (FP) PO PRN (10:07)
[2022-09-14] MEDS: CLOTRIMAZOLE 1% CREAM TP SCH (22:14)
[2022-09-14] MEDS: ATORVASTATIN CA 40 MG TABLET (FP) PO SCH (22:15)
[2022-09-14] MEDS: THIAMINE HCL 100 MG TABLET (FP) PO SCH (22:15)
[2022-09-14] MEDS: MELATONIN 5 MG TABLETS PO PRN (22:16)
[2022-09-15] MEDS ORDERED: chlordiazePOXIDE HCL 10 MG CAPSULE PO PRN
[2022-09-15] MEDS: chlordiazePOXIDE HCL 10 MG CAPSULE PO SCH ×4 (05:39→22:24)
[2022-09-15] MEDS: glipiZIDE-XL 5 MG TAB.ER.24 PO SCH (06:12)
[2022-09-15] MEDS: metFORMIN HCL 500 MG TABLET (FP) PO SCH ×2 (08:19→17:38)
[2022-09-15] MEDS: INSULIN SLIDING SCALE (NOVOLOG) 1 VIAL SQ SCH ×4 (08:19→22:27)
[2022-09-15] MEDS: PRENATAL VITAMINS W/ FOLIC ACID TABLET (FP) PO SCH (10:15)
[2022-09-15] MEDS: CLOTRIMAZOLE 1% CREAM TP SCH ×2 (10:15→22:26)
[2022-09-15] MEDS: hydrOXYzine PAMOATE 25 MG CAPSULE (FP) PO PRN (10:16)
[2022-09-15] MEDS: FAMOTIDINE 20 MG TABLET PO SCH (10:16)
[2022-09-15] MEDS: THIAMINE HCL 100 MG TABLET (FP) PO SCH (22:24)
[2022-09-15] MEDS: ATORVASTATIN CA 40 MG TABLET (FP) PO SCH (22:24)
[2022-09-16] MEDS: chlordiazePOXIDE HCL 10 MG CAPSULE PO SCH ×2 (05:19→17:13)
[2022-09-16] MEDS: metFORMIN HCL 500 MG TABLET (FP) PO SCH ×2 (06:11→17:13)
[2022-09-16] MEDS: glipiZIDE-XL 5 MG TAB.ER.24 PO SCH (06:12)
[2022-09-16] MEDS: INSULIN SLIDING SCALE (NOVOLOG) 1 VIAL SQ SCH ×4 (06:36→22:27)
[2022-09-16] MEDS: CLOTRIMAZOLE 1% CREAM TP SCH ×2 (10:10→22:26)
[2022-09-16] MEDS: FAMOTIDINE 20 MG TABLET PO SCH (10:10)
[2022-09-16] MEDS: hydrOXYzine PAMOATE 25 MG CAPSULE (FP) PO PRN ×2 (10:10→22:26)
[2022-09-16] MEDS: PRENATAL VITAMINS W/ FOLIC ACID TABLET (FP) PO SCH (10:10)
[2022-09-16] MEDS: THIAMINE HCL 100 MG TABLET (FP) PO SCH (22:26)
[2022-09-16] MEDS: ATORVASTATIN CA 40 MG TABLET (FP) PO SCH (22:26)
[2022-09-17] MEDS ORDERED: chlordiazePOXIDE HCL 10 MG CAPSULE PO ONE (05:00)
[2022-09-17] MEDS: metFORMIN HCL 500 MG TABLET (FP) PO SCH (06:35)
[2022-09-17 06:43] VITALS: PULSE 88
[2022-09-17] MEDS: INSULIN SLIDING SCALE (NOVOLOG) 1 VIAL SQ SCH ×2 (06:50→10:36)
[2022-09-17] MEDS: glipiZIDE-XL 5 MG TAB.ER.24 PO SCH ×2 (08:04→08:12)
[2022-09-17 09:35] VITALS: BP 114/78; RESP 18; TEMP 97.7
[2022-09-17] MEDS: PRENATAL VITAMINS W/ FOLIC ACID TABLET (FP) PO SCH (10:35)
[2022-09-17] MEDS: FAMOTIDINE 20 MG TABLET PO SCH (10:35)
[2022-09-17] MEDS: CLOTRIMAZOLE 1% CREAM TP SCH (10:35)
== END 2022-09-17 09:40 | disposition home or self-care (01) | DRG 897 ==
LOC: YASAS 11:59 → Y6N 14:27
PROVIDERS: ADMIT Allergy & Immunology; ATTEND Surgery
PROC: HZ2ZZZZ Detoxification Services for Substance Abuse Treatment (ICD-10-PCS; principal; 2022-09-12)
DX: F10.230 Alcohol dependence with withdrawal, uncomplicated (principal); E78.5 Hyperlipidemia, unspecified; K21.9 Gastro-esophageal reflux disease without esophagitis; E11.9 Type 2 diabetes mellitus without complications; Z79.84 Long term (current) use of oral hypoglycemic drugs
CPT/HCPCS: 82962; 87635

== ENCOUNTER 2022-10-04 02:16 | Inpatient (IN) | payer OTHER ==
[2022-10-04 02:33] VITALS: BMI 27.9
[2022-10-04] MEDS ORDERED: MAGNESIUM HYDROX 2400MG/30ML ORAL SUSPENSION 30 ML CUP PO PRN (03:00)
[2022-10-04] MEDS ORDERED: NALOXONE HCL (KLOXXADO) 8 MG SPRAY NS PRN (03:00)
[2022-10-04] MEDS ORDERED: IBUPROFEN 400 MG TABLET (FP) PO PRN (03:00)
[2022-10-04] MEDS ORDERED: chlordiazePOXIDE HCL 25 MG CAPSULE PO PRN (03:00)
[2022-10-04] MEDS ORDERED: LOPERAMIDE HCL 2 MG CAPSULE PO PRN (03:00)
[2022-10-04] MEDS ORDERED: POLYETHYLENE GLYCOL (HEALTHYLAX) 3350 17 GM PACKET PO PRN (03:00)
[2022-10-04] MEDS ORDERED: MAG HYDROX/AL HYDROX/SIMETH 30 ML UNIT-DOSE CUP PO PRN (03:00)
[2022-10-04] MEDS ORDERED: IBUPROFEN 600 MG TABLET (FP) PO PRN (03:00)
[2022-10-04] MEDS ORDERED: BENZONATATE 200 MG CAPSULE PO PRN (03:00)
[2022-10-04] MEDS ORDERED: ONDANSETRON *ODT* 4 MG TABLET SL PRN (03:00)
[2022-10-04] MEDS ORDERED: ACETAMINOPHEN 325 MG TABLET (FP) PO PRN (03:00)
[2022-10-04] MEDS ORDERED: DICYCLOMINE HCL 10 MG CAPSULE PO PRN (03:00)
[2022-10-04] MEDS ORDERED: guaiFENesin 600 MG TABLET.ER (FP) PO PRN (03:00)
[2022-10-04] MEDS ORDERED: BISMUTH SUBSALICYLATE 524 MG/30 ML PO PRN (03:00)
[2022-10-04] MEDS ORDERED: BENZOCAINE/MENTHOL (CHLORASEPTIC ) LOZENGE MM PRN (03:00)
[2022-10-04] MEDS ORDERED: NALOXONE HCL 0.4 MG/ML VIAL IM PRN (03:00)
[2022-10-04] MEDS ORDERED: TRIMETHOBENZAMIDE HCL 200MG/2ML INJ IM ONE ×2 (03:05→03:15)
[2022-10-04] MEDS ORDERED: LORazepam 2 MG/ML SDV VIAL IM ONE (03:15)
[2022-10-04] MEDS ORDERED: cloNIDine HCL 0.1 MG TABLET PO ONE (06:24)
[2022-10-04] MEDS ORDERED: cloNIDine HCL 0.1 MG TABLET ONE (06:30)
[2022-10-04] MEDS: metFORMIN HCL 500 MG TABLET (FP) PO SCH ×2 (06:42→17:16)
[2022-10-04] MEDS ORDERED: PRENATAL VITAMINS W/ FOLIC ACID TABLET (FP) PO ONE (11:05)
[2022-10-04] MEDS: PRENATAL VITAMINS W/ FOLIC ACID TABLET (FP) PO SCH (11:45)
[2022-10-04] MEDS ORDERED: IBUPROFEN 600 MG TABLET (FP) PO ONE (12:20)
[2022-10-04] MEDS: FAMOTIDINE 40 MG TABLET PO SCH (12:32)
[2022-10-04] MEDS: METHOCARBAMOL 500 MG TABLET PO PRN (13:36)
[2022-10-04] MEDS: hydrOXYzine PAMOATE 25 MG CAPSULE (FP) PO PRN (13:36)
[2022-10-04] MEDS: ATORVASTATIN CA 40 MG TABLET (FP) PO SCH (22:10)
[2022-10-04] MEDS: chlordiazePOXIDE HCL 25 MG CAPSULE PO SCH (22:10)
[2022-10-04] MEDS: THIAMINE HCL 100 MG TABLET (FP) PO SCH (22:10)
[2022-10-04] MEDS: MELATONIN 5 MG TABLETS PO SCH (22:13)
[2022-10-05] MEDS: glipiZIDE-XL 10 MG TAB.ER.24 (FP) PO SCH ×2 (01:01→06:25)
[2022-10-05] MEDS: chlordiazePOXIDE HCL 25 MG CAPSULE PO SCH ×4 (05:27→22:22)
[2022-10-05] MEDS: metFORMIN HCL 500 MG TABLET (FP) PO SCH ×2 (06:25→17:16)
[2022-10-05] MEDS: PRENATAL VITAMINS W/ FOLIC ACID TABLET (FP) PO SCH (10:31)
[2022-10-05] MEDS: FAMOTIDINE 40 MG TABLET PO SCH (10:37)
[2022-10-05] MEDS: INSULIN SLIDING SCALE (NOVOLOG) 1 VIAL SQ SCH ×2 (17:16→22:22)
[2022-10-05] MEDS: ATORVASTATIN CA 40 MG TABLET (FP) PO SCH (22:22)
[2022-10-05] MEDS: MELATONIN 5 MG TABLETS PO SCH (22:22)
[2022-10-05] MEDS: THIAMINE HCL 100 MG TABLET (FP) PO SCH (22:22)
[2022-10-06] MEDS: chlordiazePOXIDE HCL 25 MG CAPSULE PO SCH ×4 (05:12→22:04)
[2022-10-06] MEDS: glipiZIDE-XL 10 MG TAB.ER.24 (FP) PO SCH (06:19)
[2022-10-06] MEDS: INSULIN SLIDING SCALE (NOVOLOG) 1 VIAL SQ SCH ×4 (06:19→22:07)
[2022-10-06] MEDS: metFORMIN HCL 500 MG TABLET (FP) PO SCH ×2 (06:19→17:30)
[2022-10-06] MEDS: FAMOTIDINE 20 MG TABLET PO SCH (10:48)
[2022-10-06] MEDS: PRENATAL VITAMINS W/ FOLIC ACID TABLET (FP) PO SCH (10:48)
[2022-10-06] MEDS: hydrOXYzine PAMOATE 25 MG CAPSULE (FP) PO PRN (10:50)
[2022-10-06] MEDS: METHOCARBAMOL 500 MG TABLET PO PRN (10:50)
[2022-10-06] MEDS: ATORVASTATIN CA 40 MG TABLET (FP) PO SCH (22:04)
[2022-10-06] MEDS: THIAMINE HCL 100 MG TABLET (FP) PO SCH (22:04)
[2022-10-06] MEDS: MELATONIN 5 MG TABLETS PO SCH (22:07)
[2022-10-07] MEDS ORDERED: chlordiazePOXIDE HCL 10 MG CAPSULE PO PRN
[2022-10-07] MEDS: chlordiazePOXIDE HCL 10 MG CAPSULE PO SCH ×4 (05:14→21:59)
[2022-10-07] MEDS: metFORMIN HCL 500 MG TABLET (FP) PO SCH ×2 (06:20→17:37)
[2022-10-07] MEDS: INSULIN SLIDING SCALE (NOVOLOG) 1 VIAL SQ SCH ×4 (06:21→22:26)
[2022-10-07] MEDS: glipiZIDE-XL 5 MG TAB.ER.24 PO SCH (06:21)
[2022-10-07] MEDS: FAMOTIDINE 20 MG TABLET PO SCH (10:18)
[2022-10-07] MEDS: PRENATAL VITAMINS W/ FOLIC ACID TABLET (FP) PO SCH (10:18)
[2022-10-07] MEDS: METHOCARBAMOL 500 MG TABLET PO PRN (10:19)
[2022-10-07] MEDS: hydrOXYzine PAMOATE 25 MG CAPSULE (FP) PO PRN (10:19)
[2022-10-07] MEDS: MELATONIN 5 MG TABLETS PO SCH (21:58)
[2022-10-07] MEDS: ATORVASTATIN CA 40 MG TABLET (FP) PO SCH (21:59)
[2022-10-07] MEDS: THIAMINE HCL 100 MG TABLET (FP) PO SCH (21:59)
[2022-10-08] MEDS: chlordiazePOXIDE HCL 10 MG CAPSULE PO SCH ×2 (05:18→16:59)
[2022-10-08] MEDS: glipiZIDE-XL 5 MG TAB.ER.24 PO SCH (06:12)
[2022-10-08] MEDS: metFORMIN HCL 500 MG TABLET (FP) PO SCH ×2 (06:12→16:59)
[2022-10-08] MEDS: INSULIN SLIDING SCALE (NOVOLOG) 1 VIAL SQ SCH ×4 (06:14→22:08)
[2022-10-08] MEDS: PRENATAL VITAMINS W/ FOLIC ACID TABLET (FP) PO SCH (10:25)
[2022-10-08] MEDS: FAMOTIDINE 20 MG TABLET PO SCH (10:25)
[2022-10-08] MEDS: METHOCARBAMOL 500 MG TABLET PO PRN (10:25)
[2022-10-08] MEDS: hydrOXYzine PAMOATE 25 MG CAPSULE (FP) PO PRN (10:25)
[2022-10-08] MEDS: ATORVASTATIN CA 40 MG TABLET (FP) PO SCH (22:07)
[2022-10-08] MEDS: THIAMINE HCL 100 MG TABLET (FP) PO SCH (22:07)
[2022-10-08] MEDS: MELATONIN 5 MG TABLETS PO SCH (22:08)
[2022-10-09] MEDS ORDERED: chlordiazePOXIDE HCL 10 MG CAPSULE PO ONE (05:00)
[2022-10-09 05:58] VITALS: BP 113/66; PULSE 82; RESP 18; TEMP 97.6
[2022-10-09] MEDS: metFORMIN HCL 500 MG TABLET (FP) PO SCH (07:01)
[2022-10-09] MEDS: glipiZIDE-XL 5 MG TAB.ER.24 PO SCH (07:01)
[2022-10-09] MEDS: INSULIN SLIDING SCALE (NOVOLOG) 1 VIAL SQ SCH (07:02)
== END 2022-10-09 09:15 | disposition home or self-care (01) | DRG 775 ==
LOC: YASAS 02:16 → Y6N 12:30
PROVIDERS: ADMIT Allergy & Immunology; ATTEND Surgery
PROC: HZ2ZZZZ Detoxification Services for Substance Abuse Treatment (ICD-10-PCS; principal; 2022-10-04)
DX: F10.230 Alcohol dependence with withdrawal, uncomplicated (principal); E78.5 Hyperlipidemia, unspecified; E11.9 Type 2 diabetes mellitus without complications; Z79.84 Long term (current) use of oral hypoglycemic drugs; K21.9 Gastro-esophageal reflux disease without esophagitis; Z87.19 Personal history of other diseases of the digestive system
CPT/HCPCS: 36415; 80053; 82962; 83690; 85025; 86780; 87635; 93005; 93010

== ENCOUNTER 2022-11-29 12:00 | Inpatient (IN) | payer OTHER ==
[2022-11-29] MEDS ORDERED: FAMOTIDINE 20 MG/50 ML IVPB 20 MG/50 ML MG IVPB ONE ×2 (13:08→13:32)
[2022-11-29] MEDS ORDERED: ONDANSETRON 4 MG/2 ML VIAL IVPUSH ONE (13:08)
[2022-11-29] MEDS ORDERED: MAG HYDROX/AL HYDROX/SIMETH -MYLANTA- ORAL SUSPENSION PO ONE (13:08)
[2022-11-29] MEDS ORDERED: LACTATED RINGERS SOLUTION 1000 ML INFUS.BAG IV ONE ×2 (13:08→15:22)
[2022-11-29] MEDS ORDERED: THIAMINE HCL 200 MG/2 ML VIAL IVPB ONE (13:17)
[2022-11-29] MEDS ORDERED: diazePAM CARPU-JECT 10 MG/2 ML DISP.SYRIN IVPUSH ONE (13:21)
[2022-11-29] MEDS ORDERED: diazePAM CARPU-JECT 10 MG/2 ML DISP.SYRIN ONE (13:31)
[2022-11-29] MEDS ORDERED: MAG HYDROX/AL HYDROX/SIMETH 30 ML UNIT-DOSE CUP ONE ×2 (13:31→20:17)
[2022-11-29] MEDS ORDERED: THIAMINE HCL 200 MG/2 ML VIAL ONE (13:31)
[2022-11-29] MEDS ORDERED: ONDANSETRON 4 MG/2 ML VIAL ONE (13:32)
[2022-11-29 13:41] LABS: URINE APPEARANCE CLEAR; URINE BILIRUBIN NEGATIVE (NEGATIVE); URINE COLOR YELLOW; URINE GLUCOSE (UA) 3+ (NEGATIVE); URINE KETONE TRACE (NEGATIVE); URINE LEUK ESTERASE NEGATIVE (NEGATIVE); URINE NITRITE NEGATIVE (NEGATIVE); URINE PROTEIN NEGATIVE (NEGATIVE); URINE UROBILINOGEN 0.2 mg/dL (0.2-1.0)
[2022-11-29 13:56] LABS: BASO % 0.5 % (0-2.0); EOS % 0.2 % (0-4.5); HEMATOCRIT 47.2 % (35.4-49); HEMOGLOBIN 16.4 GM/dL (11.7-16.9); LYMPH % 18.2 % (8-40); MCH 30.6 pg (25.7-33.7); MCHC 34.8 g/dl (32.0-35.9); MEAN PLT VOLUME 8.2 fl (7.5-11.1); MONO % 7.2 % (3.8-10.2); NEUT % 73.9 % (42.8-82.8); PLATELET COUNT 173 10^3/uL (134-434); RBC 5.36 M/mm3 (4.00-5.60); RDW 13.6 % (11.9-15.9); WHITE BLOOD COUNT 4.2 K/mm3 (4.0-10.0)
[2022-11-29 14:00] LABS: ACTIVATED PTT 32.7 SECONDS (25.2-36.5); INR 0.97 (0.83-1.09); PROTHROMBIN TIME (PATIENT) 11.2 SEC (9.7-13.0)
[2022-11-29 14:01] LABS: POTASSIUM 4.2 mmol/L (3.5-5.1)
[2022-11-29 14:02] LABS: CALCIUM 8.9 mg/dL (8.5-10.1)
[2022-11-29 14:03] LABS: ALBUMIN 4.2 g/dl (3.4-5.0); MAGNESIUM 2.7 mg/dL (1.8-2.4)
[2022-11-29 14:06] LABS: CREATININE 0.8 mg/dL (0.55-1.3)
[2022-11-29 14:08] LABS: BILIRUBIN,TOTAL 1.8 mg/dL (0.2-1); TOT PROT 8.2 g/dl (6.4-8.2)
[2022-11-29] MEDS ORDERED: chlordiazePOXIDE HCL 25 MG CAPSULE PO ONE (15:12)
[2022-11-29] MEDS ORDERED: chlordiazePOXIDE HCL 25 MG CAPSULE ONE (15:23)
[2022-11-29 15:34] LABS: VENOUS BASE EXCESS -0.3 mmol/L (-2-2); VENOUS O2 SATURATION 89.3 % (70-80); VENOUS PCO2 41.7 mmHg (38-52); VENOUS PH 7.391 (7.310-7.410)
[2022-11-29] MEDS ORDERED: SUCRALFATE 1 GM TABLET (FP) PO ONE (16:32)
[2022-11-29] MEDS ORDERED: ACETAMINOPHEN 1000 MG/100 ML BAG IVPB ONE (16:32)
[2022-11-29] MEDS ORDERED: LORazepam 1 MG TABLET PO PRN (16:43)
[2022-11-29] MEDS ORDERED: NAPROXEN 250 MG TABLET PO PRN (16:45)
[2022-11-29] MEDS ORDERED: SUCRALFATE 1 GM TABLET (FP) ONE (16:52)
[2022-11-29] MEDS ORDERED: ACETAMINOPHEN INJECTION 100 ML IVPB ONE (16:53)
[2022-11-29] MEDS ORDERED: ASPIRIN COATED 81 MG TABLET.EC ONE (16:57)
[2022-11-29] MEDS: ASPIRIN COATED 81 MG TABLET.EC PO SCH (17:05)
[2022-11-29 17:13] LABS: LACTIC ACID 3.9 mmol/L (0.4-2.0)
[2022-11-29 17:27] LABS: BILIRUBIN,DIRECT 0.4 mg/dL (0.0-0.2)
[2022-11-29] MEDS ORDERED: LACTATED RINGERS SOLUTION 1,000 ML/1,000 ML INFUS.BAG IV SCH (18:15)
[2022-11-29] MEDS: INSULIN SLIDING SCALE (NOVOLOG) 1 VIAL SQ SCH (18:18)
[2022-11-29] MEDS: MAG HYDROX/AL HYDROX/SIMETH 30 ML UNIT-DOSE CUP PO SCH (21:08)
[2022-11-29] MEDS: HEPARIN NA (PORCINE) 5,000 UNITS/ML 1ML VIAL SQ SCH (22:16)
[2022-11-29] MEDS ORDERED: LORazepam 1 MG TABLET ONE (22:17)
[2022-11-29] MEDS: LORazepam 1 MG TABLET PO SCH (22:21)
[2022-11-29] MEDS ORDERED: NAPROXEN 500 MG TABLET ONE (22:38)
[2022-11-30 03:23] VITALS: BMI 29.2
[2022-11-30] MEDS: LORazepam 1 MG TABLET PO SCH ×3 (06:17→21:44)
[2022-11-30] MEDS: MAG HYDROX/AL HYDROX/SIMETH 30 ML UNIT-DOSE CUP PO SCH ×3 (06:19→21:44)
[2022-11-30] MEDS: INSULIN SLIDING SCALE (NOVOLOG) 1 VIAL SQ SCH ×3 (06:20→15:54)
[2022-11-30 08:26] LABS: BASO % 0.6 % (0-2.0); EOS % 1.4 % (0-4.5); HEMOGLOBIN 14.8 GM/dL (11.7-16.9); MCH 30.5 pg (25.7-33.7); MCHC 35.2 g/dl (32.0-35.9); MEAN CELL VOLUME 86.7 fl (80-96); MEAN PLT VOLUME 8.1 fl (7.5-11.1); MONO % 9.7 % (3.8-10.2); NEUT % 64.3 % (42.8-82.8); PLATELET COUNT 122 10^3/uL (134-434); RBC 4.84 M/mm3 (4.00-5.60); RDW 14.1 % (11.9-15.9); WHITE BLOOD COUNT 3.6 K/mm3 (4.0-10.0)
[2022-11-30 08:56] LABS: POTASSIUM 3.9 mmol/L (3.5-5.1)
[2022-11-30 08:57] LABS: ALBUMIN 3.7 g/dl (3.4-5.0)
[2022-11-30 08:59] LABS: CALCIUM 8.5 mg/dL (8.5-10.1)
[2022-11-30 09:00] LABS: BILIRUBIN,DIRECT 0.4 mg/dL (0.0-0.2); BLOOD UREA NITROGEN 7.6 mg/dL (7-18)
[2022-11-30 09:02] LABS: BILIRUBIN,TOTAL 2.3 mg/dL (0.2-1); TOT PROT 6.6 g/dl (6.4-8.2)
[2022-11-30 09:03] LABS: CREATININE 0.7 mg/dL (0.55-1.3)
[2022-11-30] MEDS: THIAMINE HCL 100 MG TABLET (FP) PO SCH (09:22)
[2022-11-30] MEDS: MULTIVITAMINS (DAILY MVI) TABLET (FP) PO SCH (09:22)
[2022-11-30] MEDS: FOLIC ACID 1 MG TABLET (FP) PO SCH (09:22)
[2022-11-30] MEDS: PANTOPRAZOLE 40 MG TABLET PO SCH (09:22)
[2022-11-30] MEDS: ASPIRIN COATED 81 MG TABLET.EC PO SCH (09:22)
[2022-11-30] MEDS: HEPARIN NA (PORCINE) 5,000 UNITS/ML 1ML VIAL SQ SCH ×2 (09:23→21:43)
[2022-12-01] MEDS: LORazepam 1 MG TABLET PO SCH ×3 (05:44→21:49)
[2022-12-01] MEDS: MAG HYDROX/AL HYDROX/SIMETH 30 ML UNIT-DOSE CUP PO SCH ×3 (05:44→21:49)
[2022-12-01] MEDS: INSULIN SLIDING SCALE (NOVOLOG) 1 VIAL SQ SCH ×3 (06:33→16:02)
[2022-12-01 07:49] LABS: BASO % 0.5 % (0-2.0); EOS % 2.4 % (0-4.5); HEMOGLOBIN 14.8 GM/dL (11.7-16.9); LYMPH % 24.6 % (8-40); MCH 30.4 pg (25.7-33.7); MCHC 35.2 g/dl (32.0-35.9); MEAN CELL VOLUME 86.3 fl (80-96); MEAN PLT VOLUME 7.7 fl (7.5-11.1); MONO % 8.2 % (3.8-10.2); NEUT % 64.3 % (42.8-82.8); PLATELET COUNT 103 10^3/uL (134-434); RBC 4.87 M/mm3 (4.00-5.60); RDW 13.9 % (11.9-15.9); WHITE BLOOD COUNT 3.1 K/mm3 (4.0-10.0)
[2022-12-01 07:56] LABS: POTASSIUM 3.8 mmol/L (3.5-5.1)
[2022-12-01 08:00] LABS: CALCIUM 8.5 mg/dL (8.5-10.1)
[2022-12-01 08:01] LABS: ALBUMIN 3.6 g/dl (3.4-5.0); BLOOD UREA NITROGEN 8.5 mg/dL (7-18); MAGNESIUM 2.7 mg/dL (1.8-2.4)
[2022-12-01 08:03] LABS: CREATININE 0.7 mg/dL (0.55-1.3)
[2022-12-01 08:04] LABS: BILIRUBIN,TOTAL 1.6 mg/dL (0.2-1); TOT PROT 6.7 g/dl (6.4-8.2)
[2022-12-01] MEDS: FOLIC ACID 1 MG TABLET (FP) PO SCH (09:07)
[2022-12-01] MEDS: PANTOPRAZOLE 40 MG TABLET PO SCH (09:07)
[2022-12-01] MEDS: THIAMINE HCL 100 MG TABLET (FP) PO SCH (09:07)
[2022-12-01] MEDS: ASPIRIN COATED 81 MG TABLET.EC PO SCH (09:07)
[2022-12-01] MEDS: HEPARIN NA (PORCINE) 5,000 UNITS/ML 1ML VIAL SQ SCH ×2 (09:07→21:49)
[2022-12-01] MEDS: MULTIVITAMINS (DAILY MVI) TABLET (FP) PO SCH (09:07)
[2022-12-01] MEDS ORDERED: INSULIN (NOVOLOG) ASPART 100 UNITS/ML 10ML VIAL ONE (11:03)
[2022-12-01] MEDS: LACTATED RINGERS SOLUTION 1,000 ML/1,000 ML INFUS.BAG IV SCH ×2 (12:17→21:48)
[2022-12-02] MEDS ORDERED: LORazepam 1 MG TABLET PO PRN (02:07)
[2022-12-02] MEDS: MAG HYDROX/AL HYDROX/SIMETH 30 ML UNIT-DOSE CUP PO SCH ×3 (06:03→21:15)
[2022-12-02] MEDS: LORazepam 1 MG TABLET PO SCH ×2 (06:04→13:25)
[2022-12-02] MEDS: INSULIN SLIDING SCALE (NOVOLOG) 1 VIAL SQ SCH ×3 (06:09→16:27)
[2022-12-02 09:11] LABS: BASO % 0.4 % (0-2.0); EOS % 3.3 % (0-4.5); HEMATOCRIT 42.2 % (35.4-49); HEMOGLOBIN 14.3 GM/dL (11.7-16.9); LYMPH % 27.8 % (8-40); MCH 29.9 pg (25.7-33.7); MEAN CELL VOLUME 88.1 fl (80-96); MEAN PLT VOLUME 8.2 fl (7.5-11.1); MONO % 8.2 % (3.8-10.2); NEUT % 60.3 % (42.8-82.8); PLATELET COUNT 107 10^3/uL (134-434); RBC 4.79 M/mm3 (4.00-5.60); RDW 13.6 % (11.9-15.9); WHITE BLOOD COUNT 3.5 K/mm3 (4.0-10.0)
[2022-12-02] MEDS ORDERED: INSULIN (NOVOLOG) ASPART 100 UNITS/ML 10ML VIAL ONE (09:12)
[2022-12-02 09:28] LABS: POTASSIUM 3.9 mmol/L (3.5-5.1)
[2022-12-02 09:34] LABS: BLOOD UREA NITROGEN 11.2 mg/dL (7-18)
[2022-12-02 09:36] LABS: CALCIUM 8.6 mg/dL (8.5-10.1)
[2022-12-02 09:37] LABS: ALBUMIN 3.3 g/dl (3.4-5.0); MAGNESIUM 2.5 mg/dL (1.8-2.4)
[2022-12-02 09:38] LABS: BILIRUBIN,DIRECT 0.3 mg/dL (0.0-0.2)
[2022-12-02] MEDS: INSULIN (LEVEMIR) 100 UNITS/ML UNITS SQ SCH ×2 (09:38→21:17)
[2022-12-02 09:39] LABS: CREATININE 0.7 mg/dL (0.55-1.3)
[2022-12-02] MEDS: THIAMINE HCL 100 MG TABLET (FP) PO SCH (09:39)
[2022-12-02] MEDS: ASPIRIN COATED 81 MG TABLET.EC PO SCH (09:39)
[2022-12-02] MEDS: HEPARIN NA (PORCINE) 5,000 UNITS/ML 1ML VIAL SQ SCH ×2 (09:39→21:15)
[2022-12-02] MEDS: MULTIVITAMINS (DAILY MVI) TABLET (FP) PO SCH (09:39)
[2022-12-02] MEDS: PANTOPRAZOLE 40 MG TABLET PO SCH (09:39)
[2022-12-02] MEDS: FOLIC ACID 1 MG TABLET (FP) PO SCH (09:39)
[2022-12-02 09:40] LABS: BILIRUBIN,TOTAL 1.1 mg/dL (0.2-1); TOT PROT 6.6 g/dl (6.4-8.2)
[2022-12-02] MEDS: INSULIN (NOVOLOG) ASPART 100 UNITS/ML 10ML VIAL SQ SCH ×2 (11:07→16:27)
[2022-12-02] MEDS: LACTATED RINGERS SOLUTION 1,000 ML/1,000 ML INFUS.BAG IV SCH (13:26)
[2022-12-03] MEDS: MAG HYDROX/AL HYDROX/SIMETH 30 ML UNIT-DOSE CUP PO SCH ×3 (06:19→21:17)
[2022-12-03] MEDS: INSULIN (NOVOLOG) ASPART 100 UNITS/ML 10ML VIAL SQ SCH ×3 (06:22→16:49)
[2022-12-03] MEDS: INSULIN SLIDING SCALE (NOVOLOG) 1 VIAL SQ SCH ×3 (06:22→16:48)
[2022-12-03] MEDS: INSULIN (LEVEMIR) 100 UNITS/ML UNITS SQ SCH ×2 (06:23→21:16)
[2022-12-03] MEDS ORDERED: INSULIN (NOVOLOG) ASPART 100 UNITS/ML 10ML VIAL ONE ×4 (08:14→21:02)
[2022-12-03] MEDS ORDERED: INSULIN (LEVEMIR) 100 UNITS/ML UNITS SQ ONE (08:15)
[2022-12-03] MEDS: PANTOPRAZOLE 40 MG TABLET PO SCH (09:40)
[2022-12-03] MEDS: MULTIVITAMINS (DAILY MVI) TABLET (FP) PO SCH (09:40)
[2022-12-03] MEDS: ASPIRIN COATED 81 MG TABLET.EC PO SCH (09:40)
[2022-12-03] MEDS: THIAMINE HCL 100 MG TABLET (FP) PO SCH (09:40)
[2022-12-03] MEDS: HEPARIN NA (PORCINE) 5,000 UNITS/ML 1ML VIAL SQ SCH ×2 (09:40→21:16)
[2022-12-03] MEDS: FOLIC ACID 1 MG TABLET (FP) PO SCH (09:40)
[2022-12-03 09:47] LABS: BASO % 0.4 % (0-2.0); EOS % 3.4 % (0-4.5); HEMATOCRIT 46.7 % (35.4-49); HEMOGLOBIN 16.2 GM/dL (11.7-16.9); LYMPH % 27.3 % (8-40); MCH 30.5 pg (25.7-33.7); MCHC 34.8 g/dl (32.0-35.9); MEAN CELL VOLUME 87.8 fl (80-96); MEAN PLT VOLUME 8.2 fl (7.5-11.1); MONO % 8.6 % (3.8-10.2); NEUT % 60.3 % (42.8-82.8); PLATELET COUNT 135 10^3/uL (134-434); RBC 5.31 M/mm3 (4.00-5.60); RDW 13.9 % (11.9-15.9); WHITE BLOOD COUNT 5.3 K/mm3 (4.0-10.0)
[2022-12-03 12:17] LABS: POTASSIUM 4.1 mmol/L (3.5-5.1)
[2022-12-03 12:56] LABS: BLOOD UREA NITROGEN 10.6 mg/dL (7-18)
[2022-12-03 12:59] LABS: ALBUMIN 4.1 g/dl (3.4-5.0); CALCIUM 9.1 mg/dL (8.5-10.1); MAGNESIUM 2.7 mg/dL (1.8-2.4)
[2022-12-03 13:01] LABS: CREATININE 0.8 mg/dL (0.55-1.3); PHOSPHOROUS 3.2 mg/dL (2.5-4.9)
[2022-12-03 13:02] LABS: BILIRUBIN,TOTAL 1.3 mg/dL (0.2-1); TOT PROT 7.7 g/dl (6.4-8.2)
[2022-12-04] MEDS: MAG HYDROX/AL HYDROX/SIMETH 30 ML UNIT-DOSE CUP PO SCH ×2 (06:00→13:31)
[2022-12-04] MEDS: INSULIN (LEVEMIR) 100 UNITS/ML UNITS SQ SCH (07:32)
[2022-12-04] MEDS: INSULIN (NOVOLOG) ASPART 100 UNITS/ML 10ML VIAL SQ SCH ×2 (07:33→11:36)
[2022-12-04] MEDS: INSULIN SLIDING SCALE (NOVOLOG) 1 VIAL SQ SCH ×2 (07:34→11:36)
[2022-12-04] MEDS ORDERED: INSULIN (NOVOLOG) ASPART 100 UNITS/ML 10ML VIAL ONE (07:49)
[2022-12-04] MEDS ORDERED: INSULIN (LEVEMIR) 100 UNITS/ML UNITS SQ ONE (07:49)
[2022-12-04 08:19] LABS: BASO % 0.3 % (0-2.0); EOS % 3.1 % (0-4.5); HEMATOCRIT 41.9 % (35.4-49); HEMOGLOBIN 14.7 GM/dL (11.7-16.9); LYMPH % 24.6 % (8-40); MCH 30.7 pg (25.7-33.7); MCHC 35.2 g/dl (32.0-35.9); MEAN CELL VOLUME 87.4 fl (80-96); MEAN PLT VOLUME 7.7 fl (7.5-11.1); MONO % 10.2 % (3.8-10.2); NEUT % 61.8 % (42.8-82.8); PLATELET COUNT 113 10^3/uL (134-434); RDW 14.4 % (11.9-15.9); WHITE BLOOD COUNT 4.9 K/mm3 (4.0-10.0)
[2022-12-04 08:38] LABS: POTASSIUM 4.7 mmol/L (3.5-5.1)
[2022-12-04 08:48] LABS: ALBUMIN 3.5 g/dl (3.4-5.0); BLOOD UREA NITROGEN 15.4 mg/dL (7-18)
[2022-12-04 08:50] LABS: MAGNESIUM 2.4 mg/dL (1.8-2.4)
[2022-12-04 08:52] LABS: CREATININE 0.8 mg/dL (0.55-1.3)
[2022-12-04 08:54] LABS: BILIRUBIN,TOTAL 1.2 mg/dL (0.2-1); TOT PROT 6.9 g/dl (6.4-8.2)
[2022-12-04] MEDS: THIAMINE HCL 100 MG TABLET (FP) PO SCH (09:00)
[2022-12-04] MEDS: ASPIRIN COATED 81 MG TABLET.EC PO SCH (09:00)
[2022-12-04] MEDS: MULTIVITAMINS (DAILY MVI) TABLET (FP) PO SCH (09:00)
[2022-12-04] MEDS: FOLIC ACID 1 MG TABLET (FP) PO SCH (09:00)
[2022-12-04] MEDS: PANTOPRAZOLE 40 MG TABLET PO SCH (09:01)
[2022-12-04] MEDS: HEPARIN NA (PORCINE) 5,000 UNITS/ML 1ML VIAL SQ SCH (09:01)
[2022-12-04 13:02] VITALS: RESP 18
[2022-12-04 14:37] VITALS: BP 116/79; PULSE 89; TEMP 98.5
== END 2022-12-04 16:10 | disposition home or self-care (01) | DRG 241 ==
LOC: JER 12:00 → JERBED 16:17 → OBSVTOIN 16:40 → JERBED 11-30 02:38 → J4W 11-30 02:51 → J7W 12-01 16:51
PROVIDERS: ADMIT Internal Medicine; ATTEND Internal Medicine
DX: K29.20 Alcoholic gastritis without bleeding (principal); E11.65 Type 2 diabetes mellitus with hyperglycemia; K70.10 Alcoholic hepatitis without ascites; K76.0 Fatty (change of) liver, not elsewhere classified; E78.5 Hyperlipidemia, unspecified; F10.239 Alcohol dependence with withdrawal, unspecified; R07.89 Other chest pain; R94.31 Abnormal electrocardiogram [ECG] [EKG]; R94.5 Abnormal results of liver function studies; D69.6 Thrombocytopenia, unspecified; R10.13 Epigastric pain
CPT/HCPCS: 36415; 71045-TC-FY; 76705-TC; 80048; 80053; 80076; 80307; 81003; 82010; 82248; 82803; 82962; 83036; 83605; 83690; 83735; 84100; 84484; 85025; 85610; 85730; 86704; 86803; 87086; 87340; 87517; 93005; 93010; 99285-25; G0378; J1644

== ENCOUNTER 2022-12-18 05:21 | Inpatient (IN) | payer OTHER ==
[2022-12-18 10:43] VITALS: BMI 28.5
[2022-12-18] MEDS ORDERED: chlordiazePOXIDE HCL 25 MG CAPSULE PO PRN (11:01)
[2022-12-18] MEDS ORDERED: guaiFENesin 600 MG TABLET.ER (FP) PO PRN (11:11)
[2022-12-18] MEDS ORDERED: BENZONATATE 200 MG CAPSULE PO PRN (11:11)
[2022-12-18] MEDS ORDERED: MAG HYDROX/AL HYDROX/SIMETH 30 ML UNIT-DOSE CUP PO PRN (11:11)
[2022-12-18] MEDS ORDERED: POLYETHYLENE GLYCOL (HEALTHYLAX) 3350 17 GM PACKET PO PRN (11:11)
[2022-12-18] MEDS ORDERED: BENZOCAINE/MENTHOL (CHLORASEPTIC ) LOZENGE MM PRN (11:11)
[2022-12-18] MEDS ORDERED: P-EPHED 60MG/TRIPROLIDI 2.5MG TABLET PO PRN (11:11)
[2022-12-18] MEDS ORDERED: LOPERAMIDE HCL 2 MG CAPSULE PO PRN (11:11)
[2022-12-18] MEDS ORDERED: ONDANSETRON *ODT* 4 MG TABLET SL PRN (11:11)
[2022-12-18] MEDS ORDERED: BISMUTH SUBSALICYLATE 524 MG/30 ML PO PRN (11:11)
[2022-12-18] MEDS ORDERED: ACETAMINOPHEN 325 MG TABLET (FP) PO PRN (11:11)
[2022-12-18] MEDS ORDERED: MAGNESIUM HYDROX 2400MG/30ML ORAL SUSPENSION 30 ML CUP PO PRN (11:11)
[2022-12-18] MEDS ORDERED: chlordiazePOXIDE HCL 25 MG CAPSULE ONE (11:14)
[2022-12-18] MEDS: chlordiazePOXIDE HCL 25 MG CAPSULE PO SCH ×3 (11:24→22:02)
[2022-12-18] MEDS ORDERED: MAG HYDROX/AL HYDROX/SIMETH 30 ML UNIT-DOSE CUP PO ONE (11:30)
[2022-12-18] MEDS ORDERED: INSULIN (NOVOLOG) ASPART 100 UNITS/ML 10ML VIAL ONE ×2 (16:54→23:12)
[2022-12-18] MEDS: INSULIN SLIDING SCALE (NOVOLOG) 1 VIAL SQ SCH ×2 (19:33→22:02)
[2022-12-18] MEDS: THIAMINE HCL 100 MG TABLET (FP) PO SCH (22:01)
[2022-12-18] MEDS: MELATONIN 5 MG TABLETS PO SCH (22:05)
[2022-12-19] MEDS: chlordiazePOXIDE HCL 25 MG CAPSULE PO SCH ×4 (05:23→22:08)
[2022-12-19] MEDS: INSULIN SLIDING SCALE (NOVOLOG) 1 VIAL SQ SCH ×4 (06:30→22:07)
[2022-12-19] MEDS ORDERED: INSULIN (NOVOLOG) ASPART 100 UNITS/ML 10ML VIAL ONE ×2 (06:35→11:11)
[2022-12-19] MEDS: hydrOXYzine PAMOATE 25 MG CAPSULE (FP) PO PRN (10:25)
[2022-12-19] MEDS: PRENATAL VITAMINS W/ FOLIC ACID TABLET (FP) PO SCH (10:25)
[2022-12-19] MEDS: FOLIC ACID 1 MG TABLET (FP) PO SCH (10:26)
[2022-12-19] MEDS: THIAMINE HCL 100 MG TABLET (FP) PO SCH (22:08)
[2022-12-19] MEDS: MELATONIN 5 MG TABLETS PO SCH (22:08)
[2022-12-20] MEDS ORDERED: INSULIN (NOVOLOG) ASPART 100 UNITS/ML 10ML VIAL ONE ×4 (05:27→21:58)
[2022-12-20] MEDS: chlordiazePOXIDE HCL 25 MG CAPSULE PO SCH ×4 (05:33→22:03)
[2022-12-20] MEDS: INSULIN SLIDING SCALE (NOVOLOG) 1 VIAL SQ SCH ×4 (06:22→22:03)
[2022-12-20] MEDS: hydrOXYzine PAMOATE 25 MG CAPSULE (FP) PO PRN (10:21)
[2022-12-20] MEDS: PRENATAL VITAMINS W/ FOLIC ACID TABLET (FP) PO SCH (10:21)
[2022-12-20] MEDS: FOLIC ACID 1 MG TABLET (FP) PO SCH (10:21)
[2022-12-20] MEDS: DICYCLOMINE HCL 10 MG CAPSULE PO PRN (17:32)
[2022-12-20] MEDS: THIAMINE HCL 100 MG TABLET (FP) PO SCH (22:03)
[2022-12-20] MEDS: MELATONIN 5 MG TABLETS PO SCH (22:03)
[2022-12-21] MEDS ORDERED: chlordiazePOXIDE HCL 10 MG CAPSULE PO PRN
[2022-12-21] MEDS: chlordiazePOXIDE HCL 10 MG CAPSULE PO SCH ×4 (05:41→22:01)
[2022-12-21] MEDS ORDERED: INSULIN (NOVOLOG) ASPART 100 UNITS/ML 10ML VIAL ONE ×2 (06:13→11:04)
[2022-12-21] MEDS: INSULIN SLIDING SCALE (NOVOLOG) 1 VIAL SQ SCH ×4 (07:55→22:03)
[2022-12-21] MEDS: PRENATAL VITAMINS W/ FOLIC ACID TABLET (FP) PO SCH (10:52)
[2022-12-21] MEDS: FOLIC ACID 1 MG TABLET (FP) PO SCH (10:52)
[2022-12-21] MEDS: DICYCLOMINE HCL 10 MG CAPSULE PO PRN (17:10)
[2022-12-21] MEDS: THIAMINE HCL 100 MG TABLET (FP) PO SCH (22:01)
[2022-12-21] MEDS: MELATONIN 5 MG TABLETS PO SCH (22:01)
[2022-12-22] MEDS: chlordiazePOXIDE HCL 10 MG CAPSULE PO SCH ×2 (05:29→17:39)
[2022-12-22] MEDS: INSULIN SLIDING SCALE (NOVOLOG) 1 VIAL SQ SCH ×4 (06:49→22:14)
[2022-12-22] MEDS: PRENATAL VITAMINS W/ FOLIC ACID TABLET (FP) PO SCH (10:19)
[2022-12-22] MEDS: FOLIC ACID 1 MG TABLET (FP) PO SCH (10:20)
[2022-12-22] MEDS ORDERED: INSULIN (NOVOLOG) ASPART 100 UNITS/ML 10ML VIAL ONE ×3 (11:14→22:13)
[2022-12-22] MEDS: metFORMIN HCL 500 MG TABLET (FP) PO SCH (16:30)
[2022-12-22] MEDS: FAMOTIDINE 20 MG TABLET PO SCH (16:55)
[2022-12-22] MEDS ORDERED: ATORVASTATIN CA 40 MG TABLET (FP) PO SCH (22:00)
[2022-12-22] MEDS: MELATONIN 5 MG TABLETS PO SCH (22:14)
[2022-12-22] MEDS: THIAMINE HCL 100 MG TABLET (FP) PO SCH (22:14)
[2022-12-23] MEDS ORDERED: chlordiazePOXIDE HCL 10 MG CAPSULE PO ONE (05:00)
[2022-12-23] MEDS: metFORMIN HCL 500 MG TABLET (FP) PO SCH (06:06)
[2022-12-23] MEDS ORDERED: INSULIN (NOVOLOG) ASPART 100 UNITS/ML 10ML VIAL ONE (06:09)
[2022-12-23] MEDS: INSULIN SLIDING SCALE (NOVOLOG) 1 VIAL SQ SCH (06:09)
[2022-12-23 06:17] VITALS: RESP 18
[2022-12-23] MEDS ORDERED: glipiZIDE-XL 5 MG TAB.ER.24 PO SCH (07:00)
[2022-12-23 09:31] VITALS: BP 128/84; PULSE 86; TEMP 98
[2022-12-23] MEDS: FOLIC ACID 1 MG TABLET (FP) PO SCH (09:42)
[2022-12-23] MEDS: PRENATAL VITAMINS W/ FOLIC ACID TABLET (FP) PO SCH (09:42)
[2022-12-23] MEDS: FAMOTIDINE 20 MG TABLET PO SCH (09:42)
[2022-12-23] MEDS ORDERED: ASPIRIN COATED 81 MG TABLET.EC PO SCH (10:00)
== END 2022-12-23 09:27 | disposition home or self-care (01) | DRG 775 ==
LOC: YASAS 05:21 → Y6N 12:34
PROVIDERS: ADMIT Allergy & Immunology; ATTEND Surgery
PROC: HZ2ZZZZ Detoxification Services for Substance Abuse Treatment (ICD-10-PCS; principal; 2022-12-18)
DX: F10.230 Alcohol dependence with withdrawal, uncomplicated (principal); K21.9 Gastro-esophageal reflux disease without esophagitis; E11.9 Type 2 diabetes mellitus without complications; Z79.84 Long term (current) use of oral hypoglycemic drugs
CPT/HCPCS: 36415; 70450-TC; 71045-TC-FY; 71260-TC; 72125-TC; 74177-TC; 80053; 82803; 82962; 83690; 83735; 84484; 85025; 85610; 85730; 86850; 86900; 86901; 87635; 93005; 93010; 99284-25; Q0162

== ENCOUNTER 2023-02-06 10:16 | Inpatient (IN) | payer OTHER ==
[~2023-02-06 10:16] MED LIST: FOLIC ACID INJECTION - 1 MG, THIAMINE HCL 100 MG, MULTIVIT INJECTION ADULT 10 ML in SOD... IVPB ONE
[2023-02-06 10:22] VITALS: BMI 28.5
[2023-02-06] MEDS ORDERED: FAMOTIDINE 20 MG/50 ML IVPB 20 MG/50 ML MG IVPB ONE ×2 (10:59→11:08)
[2023-02-06] MEDS ORDERED: ACETAMINOPHEN 1000 MG/100 ML BAG IVPB ONE (10:59)
[2023-02-06] MEDS ORDERED: ONDANSETRON 4 MG/2 ML VIAL IVPUSH ONE ×2 (10:59→15:23)
[2023-02-06] MEDS ORDERED: ONDANSETRON 4 MG/2 ML VIAL ONE ×2 (11:08→15:55)
[2023-02-06] MEDS ORDERED: ACETAMINOPHEN INJECTION 100 ML IVPB ONE (11:08)
[2023-02-06 11:19] LABS: BASO % 0.6 % (0-2.0); EOS % 0.2 % (0-4.5); HEMATOCRIT 49.7 % (35.4-49); HEMOGLOBIN 17.1 GM/dL (11.7-16.9); LYMPH % 17.6 % (8-40); MCH 29.7 pg (25.7-33.7); MCHC 34.3 g/dl (32.0-35.9); MEAN CELL VOLUME 86.4 fl (80-96); MEAN PLT VOLUME 7.7 fl (7.5-11.1); MONO % 6.1 % (3.8-10.2); NEUT % 75.5 % (42.8-82.8); PLATELET COUNT 295 10^3/uL (134-434); RBC 5.75 M/mm3 (4.00-5.60); RDW 13.7 % (11.9-15.9); WHITE BLOOD COUNT 5.4 K/mm3 (4.0-10.0)
[2023-02-06 11:49] LABS: POTASSIUM 4.2 mmol/L (3.5-5.1)
[2023-02-06 11:51] LABS: CALCIUM 8.8 mg/dL (8.5-10.1)
[2023-02-06 11:52] LABS: ALBUMIN 4.3 g/dl (3.4-5.0); BLOOD UREA NITROGEN 7.9 mg/dL (7-18)
[2023-02-06 11:55] LABS: CREATININE 0.8 mg/dL (0.55-1.3)
[2023-02-06 11:56] LABS: BILIRUBIN,TOTAL 1.4 mg/dL (0.2-1); TOT PROT 8.4 g/dl (6.4-8.2)
[2023-02-06] MEDS ORDERED: SODIUM CHLORIDE 0.9% 500 ML INFUS.BAG IV ONE (13:05)
[2023-02-06] MEDS ORDERED: chlordiazePOXIDE HCL 25 MG CAPSULE PO ONE (15:44)
[2023-02-06] MEDS ORDERED: chlordiazePOXIDE HCL 25 MG CAPSULE ONE ×2 (15:55→23:45)
[2023-02-06 16:19] LABS: POTASSIUM 4.2 mmol/L (3.5-5.1)
[2023-02-06 16:21] LABS: ALBUMIN 3.9 g/dl (3.4-5.0); BLOOD UREA NITROGEN 7.3 mg/dL (7-18); CALCIUM 8.6 mg/dL (8.5-10.1)
[2023-02-06 16:24] LABS: CREATININE 0.7 mg/dL (0.55-1.3)
[2023-02-06 16:26] LABS: BILIRUBIN,TOTAL 1.2 mg/dL (0.2-1); TOT PROT 7.6 g/dl (6.4-8.2)
[2023-02-06] MEDS ORDERED: morphine CARPU-JECT 2 MG/1 ML DISP.SYRIN IVPUSH ONE (20:07)
[2023-02-06] MEDS ORDERED: INSULIN (LEVEMIR) 100 UNITS/ML UNITS SQ SCH (23:10)
[2023-02-06] MEDS: chlordiazePOXIDE HCL 25 MG CAPSULE PO SCH (23:50)
[2023-02-06] MEDS: SODIUM CHLORIDE 1,000 ML IV SCH (23:50)
[2023-02-07] MEDS ORDERED: FOLIC ACID INJECTION - 1 MG, THIAMINE HCL 100 MG, MULTIVIT INJECTION ADULT 10 ML in SOD... IVPB ONE (01:00)
[2023-02-07] MEDS ORDERED: ONDANSETRON 4 MG/2 ML VIAL IVPUSH PRN (04:33)
[2023-02-07] MEDS: chlordiazePOXIDE HCL 25 MG CAPSULE PO SCH ×5 (06:47→22:57)
[2023-02-07] MEDS: INSULIN SLIDING SCALE (NOVOLOG) 1 VIAL SQ SCH ×4 (06:51→21:47)
[2023-02-07] MEDS ORDERED: chlordiazePOXIDE HCL 25 MG CAPSULE PO PRN (08:16)
[2023-02-07] MEDS: INSULIN (LEVEMIR) 100 UNITS/ML UNITS SQ SCH ×2 (08:32→21:49)
[2023-02-07 08:46] LABS: EPI CELLS 0 /uL (0-25.1); HYALINE CASTS 0 /uL (0-3.1); PH,URINE 7.5 (5.0-8.0); URINE APPEARANCE CLEAR; URINE BACTERIA >9,000 /uL (0-1359); URINE BILIRUBIN NEGATIVE (NEGATIVE); URINE COLOR YELLOW; URINE GLUCOSE (UA) 2+ (NEGATIVE); URINE KETONE 1+ (NEGATIVE); URINE LEUK ESTERASE 2+ (NEGATIVE); URINE NITRITE POSITIVE (NEGATIVE); URINE PROTEIN 1+ (NEGATIVE); URINE WBC 209 /uL (0-25.8)
[2023-02-07 08:53] LABS: URINE RBC 30 /uL (0-23.9)
[2023-02-07 09:04] LABS: COCAINE, UR NEGATIVE (NEGATIVE); URINE AMPHETAMINES NEGATIVE (NEGATIVE)
[2023-02-07 09:05] LABS: PHENCYCLIDINE,URINE NEGATIVE (NEGATIVE)
[2023-02-07 09:19] LABS: HEMATOCRIT 42.7 % (35.4-49); HEMOGLOBIN 14.8 GM/dL (11.7-16.9); MCH 29.8 pg (25.7-33.7); MCHC 34.7 g/dl (32.0-35.9); MEAN PLT VOLUME 7.6 fl (7.5-11.1); PLATELET COUNT 166 10^3/uL (134-434); RBC 4.96 M/mm3 (4.00-5.60); RDW 13.7 % (11.9-15.9); WHITE BLOOD COUNT 3.4 K/mm3 (4.0-10.0)
[2023-02-07 09:52] LABS: POTASSIUM 3.8 mmol/L (3.5-5.1)
[2023-02-07] MEDS ORDERED: PANTOPRAZOLE 40 MG TABLET PO SCH (10:00)
[2023-02-07 10:38] LABS: METHADONE, UR NEGATIVE (NEGATIVE); OPIATES, URI POSITIVE (NEGATIVE); URINE BARBITURATES NEGATIVE (NEGATIVE); URINE BENZODIAZEPINES POSITIVE (NEGATIVE)
[2023-02-07 10:39] LABS: CALCIUM 8.5 mg/dL (8.5-10.1)
[2023-02-07 10:40] LABS: ALBUMIN 3.4 g/dl (3.4-5.0); BLOOD UREA NITROGEN 11.1 mg/dL (7-18); MAGNESIUM 2.7 mg/dL (1.8-2.4)
[2023-02-07 10:43] LABS: CREATININE 0.6 mg/dL (0.55-1.3)
[2023-02-07 10:44] LABS: TOT PROT 6.6 g/dl (6.4-8.2)
[2023-02-07] MEDS: INSULIN (NOVOLOG) ASPART 100 UNITS/ML 10ML VIAL SQ SCH ×2 (11:57→17:12)
[2023-02-07 15:14] VITALS: RESP 18
[2023-02-07] MEDS: PANTOPRAZOLE 40 MG TABLET PO SCH (21:46)
[2023-02-07] MEDS ORDERED: INSULIN (LEVEMIR) 100 UNITS/ML UNITS SQ SCH (22:00)
[2023-02-07] MEDS: SODIUM CHLORIDE 1,000 ML IV SCH (22:57)
[2023-02-08] MEDS: chlordiazePOXIDE HCL 25 MG CAPSULE PO SCH ×2 (05:41→10:47)
[2023-02-08] MEDS: INSULIN SLIDING SCALE (NOVOLOG) 1 VIAL SQ SCH ×2 (06:15→10:51)
[2023-02-08] MEDS: INSULIN (NOVOLOG) ASPART 100 UNITS/ML 10ML VIAL SQ SCH (06:15)
[2023-02-08] MEDS: INSULIN (LEVEMIR) 100 UNITS/ML UNITS SQ SCH (06:15)
[2023-02-08] MEDS ORDERED: INSULIN (NOVOLOG) ASPART 100 UNITS/ML 10ML VIAL SQ SCH (08:30)
[2023-02-08] MEDS ORDERED: INSULIN (LEVEMIR) 100 UNITS/ML UNITS SQ SCH (08:45)
[2023-02-08] MEDS: PANTOPRAZOLE 40 MG TABLET PO SCH (09:14)
[2023-02-08 09:31] LABS: BASO % 0.8 % (0-2.0); EOS % 2.1 % (0-4.5); HEMATOCRIT 44.7 % (35.4-49); HEMOGLOBIN 15.8 GM/dL (11.7-16.9); MCH 30.7 pg (25.7-33.7); MCHC 35.3 g/dl (32.0-35.9); MEAN CELL VOLUME 86.8 fl (80-96); MEAN PLT VOLUME 7.7 fl (7.5-11.1); MONO % 8.8 % (3.8-10.2); NEUT % 62.3 % (42.8-82.8); PLATELET COUNT 164 10^3/uL (134-434); RBC 5.15 M/mm3 (4.00-5.60); RDW 13.9 % (11.9-15.9); WHITE BLOOD COUNT 3.6 K/mm3 (4.0-10.0)
[2023-02-08 09:59] LABS: POTASSIUM 3.8 mmol/L (3.5-5.1)
[2023-02-08] MEDS ORDERED: FOLIC ACID 1 MG TABLET (FP) PO SCH (10:00)
[2023-02-08] MEDS ORDERED: THIAMINE HCL 100 MG TABLET (FP) PO SCH (10:00)
[2023-02-08] MEDS ORDERED: MULTIVITAMINS (DAILY MVI) TABLET (FP) PO SCH (10:00)
[2023-02-08 10:02] LABS: ALBUMIN 3.5 g/dl (3.4-5.0); BLOOD UREA NITROGEN 9.8 mg/dL (7-18); CALCIUM 8.6 mg/dL (8.5-10.1); MAGNESIUM 2.2 mg/dL (1.8-2.4)
[2023-02-08 10:05] LABS: CREATININE 0.7 mg/dL (0.55-1.3); PHOSPHOROUS 3.1 mg/dL (2.5-4.9)
[2023-02-08 10:06] LABS: TOT PROT 6.8 g/dl (6.4-8.2)
[2023-02-08 10:07] LABS: BILIRUBIN,TOTAL 1.9 mg/dL (0.2-1)
[2023-02-08 10:25] VITALS: BP 117/75; PULSE 79; TEMP 98
[2023-02-09] MEDS ORDERED: chlordiazePOXIDE HCL 25 MG CAPSULE PO SCH (05:00)
[2023-02-10] MEDS ORDERED: chlordiazePOXIDE HCL 10 MG CAPSULE PO PRN
[2023-02-10] MEDS ORDERED: chlordiazePOXIDE HCL 10 MG CAPSULE PO SCH (05:00)
[2023-02-11] MEDS ORDERED: chlordiazePOXIDE HCL 10 MG CAPSULE PO SCH (05:00)
[2023-02-12] MEDS ORDERED: chlordiazePOXIDE HCL 10 MG CAPSULE PO ONE (05:00)
== END 2023-02-08 15:28 | disposition other institution (70) | DRG 241 ==
LOC: JER 10:16 → JERBED 20:09 → OBSVTOIN 22:58 → JERBED 22:58 → J6S 02-07 00:36
PROVIDERS: ADMIT Internal Medicine; ATTEND Internal Medicine
DX: K29.21 Alcoholic gastritis with bleeding (principal); K21.9 Gastro-esophageal reflux disease without esophagitis; E78.5 Hyperlipidemia, unspecified; E11.65 Type 2 diabetes mellitus with hyperglycemia; F10.230 Alcohol dependence with withdrawal, uncomplicated; K70.10 Alcoholic hepatitis without ascites; F10.220 Alcohol dependence with intoxication, uncomplicated; E87.1 Hypo-osmolality and hyponatremia; Z79.84 Long term (current) use of oral hypoglycemic drugs; I10 Essential (primary) hypertension; K76.0 Fatty (change of) liver, not elsewhere classified
CPT/HCPCS: 36415; 74177-TC; 80053; 80307; 81003; 82010; 82272; 82962; 83690; 83735; 84100; 84484; 85025; 85027; 87086; 87186; 93005; 93010; 99285-25; G0378; Q9967

== ENCOUNTER 2023-02-08 16:10 | Inpatient (IN) | payer OTHER ==
[2023-02-08 17:01] VITALS: BMI 28.3
[2023-02-08] MEDS ORDERED: BENZONATATE 200 MG CAPSULE PO PRN (17:46)
[2023-02-08] MEDS ORDERED: IBUPROFEN 400 MG TABLET (FP) PO PRN (17:46)
[2023-02-08] MEDS ORDERED: NALOXONE HCL 0.4 MG/ML VIAL IM PRN (17:46)
[2023-02-08] MEDS ORDERED: BENZOCAINE/MENTHOL (CHLORASEPTIC ) LOZENGE MM PRN (17:46)
[2023-02-08] MEDS ORDERED: DICYCLOMINE HCL 10 MG CAPSULE PO PRN (17:46)
[2023-02-08] MEDS ORDERED: ONDANSETRON *ODT* 4 MG TABLET SL PRN (17:46)
[2023-02-08] MEDS ORDERED: chlordiazePOXIDE HCL 25 MG CAPSULE PO PRN (17:46)
[2023-02-08] MEDS ORDERED: IBUPROFEN 600 MG TABLET (FP) PO PRN (17:46)
[2023-02-08] MEDS ORDERED: MAG HYDROX/AL HYDROX/SIMETH 30 ML UNIT-DOSE CUP PO PRN (17:46)
[2023-02-08] MEDS ORDERED: guaiFENesin 600 MG TABLET.ER (FP) PO PRN (17:46)
[2023-02-08] MEDS ORDERED: MAGNESIUM HYDROX 2400MG/30ML ORAL SUSPENSION 30 ML CUP PO PRN (17:46)
[2023-02-08] MEDS ORDERED: BISMUTH SUBSALICYLATE 524 MG/30 ML PO PRN (17:46)
[2023-02-08] MEDS ORDERED: NALOXONE HCL (KLOXXADO) 8 MG SPRAY NS PRN (17:46)
[2023-02-08] MEDS ORDERED: POLYETHYLENE GLYCOL (HEALTHYLAX) 3350 17 GM PACKET PO PRN (17:46)
[2023-02-08] MEDS ORDERED: LOPERAMIDE HCL 2 MG CAPSULE PO PRN (17:46)
[2023-02-08] MEDS: hydrOXYzine PAMOATE 25 MG CAPSULE (FP) PO PRN (18:45)
[2023-02-08] MEDS: METHOCARBAMOL 500 MG TABLET PO PRN (18:45)
[2023-02-08] MEDS: THIAMINE HCL 100 MG TABLET (FP) PO SCH (22:11)
[2023-02-08] MEDS: MELATONIN 5 MG TABLETS PO SCH (22:11)
[2023-02-08] MEDS ORDERED: chlordiazePOXIDE HCL 25 MG CAPSULE PO SCH (23:00)
[2023-02-09] MEDS: chlordiazePOXIDE HCL 25 MG CAPSULE PO SCH ×4 (05:50→22:02)
[2023-02-09] MEDS: INSULIN SLIDING SCALE (NOVOLOG) 1 VIAL SQ SCH ×4 (07:30→22:41)
[2023-02-09] MEDS ORDERED: INSULIN SLIDING SCALE (NOVOLOG) 1 VIAL SQ ONE (07:32)
[2023-02-09] MEDS: PRENATAL VITAMINS W/ FOLIC ACID TABLET (FP) PO SCH (10:18)
[2023-02-09 10:20] LABS: CHLORIDE 102 mmol/L (98-107); POTASSIUM 3.7 mmol/L (3.5-5.1); SODIUM 135 mmol/L (136-145)
[2023-02-09 10:23] LABS: HEMATOCRIT 41.7 % (35.4-49); MCH 29.6 pg (25.7-33.7); MCHC 33.5 g/dl (32.0-35.9); MEAN CELL VOLUME 88.4 fl (80-96); MEAN PLT VOLUME 8.3 fl (7.5-11.1); PLATELET COUNT 124 10^3/uL (134-434); RBC 4.72 M/mm3 (4.00-5.60); RDW 13.7 % (11.9-15.9); WHITE BLOOD COUNT 3.5 K/mm3 (4.0-10.0)
[2023-02-09 10:24] LABS: ANION GAP 6 mmol/L (4-13); BLOOD UREA NITROGEN 14.4 mg/dL (7-18); CALCIUM 8.4 mg/dL (8.5-10.1); CO2 28 mmol/L (21-32); GLUCOSE,RANDOM 316 mg/dL (74-106)
[2023-02-09 10:25] LABS: ALBUMIN 3.3 g/dl (3.4-5.0)
[2023-02-09 10:27] LABS: SGOT/AST 64 U/L (15-37); SGPT/ALT 69 U/L (13-61)
[2023-02-09 10:29] LABS: ALK PHOS 149 U/L (45-117); BILIRUBIN,TOTAL 0.9 mg/dL (0.2-1); TOT PROT 6.3 g/dl (6.4-8.2)
[2023-02-09 10:32] LABS: CREATININE 0.7 mg/dL (0.55-1.3)
[2023-02-09] MEDS: FAMOTIDINE 20 MG TABLET PO SCH ×2 (14:13→22:02)
[2023-02-09] MEDS ORDERED: metFORMIN HCL 500 MG TABLET (FP) PO SCH (16:30)
[2023-02-09] MEDS: THIAMINE HCL 100 MG TABLET (FP) PO SCH (22:02)
[2023-02-09] MEDS: MELATONIN 5 MG TABLETS PO SCH (22:02)
[2023-02-10] MEDS: chlordiazePOXIDE HCL 10 MG CAPSULE PO SCH ×4 (05:05→22:22)
[2023-02-10] MEDS: INSULIN SLIDING SCALE (NOVOLOG) 1 VIAL SQ SCH ×4 (06:39→21:43)
[2023-02-10] MEDS ORDERED: INSULIN SLIDING SCALE (NOVOLOG) 1 VIAL SQ ONE ×2 (06:41→11:39)
[2023-02-10] MEDS: FAMOTIDINE 20 MG TABLET PO SCH ×2 (10:13→22:21)
[2023-02-10] MEDS: PRENATAL VITAMINS W/ FOLIC ACID TABLET (FP) PO SCH (10:13)
[2023-02-10] MEDS: ACETAMINOPHEN 325 MG TABLET (FP) PO PRN ×2 (10:16→17:15)
[2023-02-10] MEDS: MELATONIN 5 MG TABLETS PO SCH (22:21)
[2023-02-10] MEDS: THIAMINE HCL 100 MG TABLET (FP) PO SCH (22:21)
[2023-02-10] MEDS: METHOCARBAMOL 500 MG TABLET PO PRN (22:22)
[2023-02-10] MEDS: hydrOXYzine PAMOATE 25 MG CAPSULE (FP) PO PRN (22:22)
[2023-02-11] MEDS ORDERED: chlordiazePOXIDE HCL 10 MG CAPSULE PO PRN
[2023-02-11] MEDS: chlordiazePOXIDE HCL 10 MG CAPSULE PO SCH ×2 (05:32→16:30)
[2023-02-11] MEDS ORDERED: INSULIN SLIDING SCALE (NOVOLOG) 1 VIAL SQ ONE (05:32)
[2023-02-11] MEDS: INSULIN SLIDING SCALE (NOVOLOG) 1 VIAL SQ SCH ×4 (06:17→21:28)
[2023-02-11] MEDS: FAMOTIDINE 20 MG TABLET PO SCH ×2 (10:06→21:28)
[2023-02-11] MEDS: PRENATAL VITAMINS W/ FOLIC ACID TABLET (FP) PO SCH (10:06)
[2023-02-11] MEDS: MELATONIN 5 MG TABLETS PO SCH (21:28)
[2023-02-11] MEDS: METHOCARBAMOL 500 MG TABLET PO PRN (21:28)
[2023-02-11] MEDS: THIAMINE HCL 100 MG TABLET (FP) PO SCH (21:28)
[2023-02-11] MEDS: hydrOXYzine PAMOATE 25 MG CAPSULE (FP) PO PRN (21:28)
[2023-02-12] MEDS ORDERED: chlordiazePOXIDE HCL 10 MG CAPSULE PO ONE (05:00)
[2023-02-12] MEDS: INSULIN SLIDING SCALE (NOVOLOG) 1 VIAL SQ SCH (06:08)
[2023-02-12] MEDS ORDERED: INSULIN SLIDING SCALE (NOVOLOG) 1 VIAL SQ ONE (06:27)
[2023-02-12 09:06] VITALS: BP 102/68; PULSE 90; RESP 16; TEMP 97.7
[2023-02-12] MEDS: PRENATAL VITAMINS W/ FOLIC ACID TABLET (FP) PO SCH (10:04)
[2023-02-12] MEDS: FAMOTIDINE 20 MG TABLET PO SCH (10:04)
== END 2023-02-12 10:42 | disposition home or self-care (01) | DRG 775 ==
LOC: YASAS 16:10 → Y3N 18:13
PROVIDERS: ADMIT Allergy & Immunology; ATTEND Surgery
PROC: HZ2ZZZZ Detoxification Services for Substance Abuse Treatment (ICD-10-PCS; principal; 2023-02-08)
DX: F10.230 Alcohol dependence with withdrawal, uncomplicated (principal); E78.2 Mixed hyperlipidemia; K21.9 Gastro-esophageal reflux disease without esophagitis; E11.65 Type 2 diabetes mellitus with hyperglycemia; Z79.84 Long term (current) use of oral hypoglycemic drugs; Z87.891 Personal history of nicotine dependence
CPT/HCPCS: 36415; 80053; 80307; 82962; 85027; 86780; 87635

== ENCOUNTER 2023-04-01 07:40 | Emergency (ER) | payer OTHER ==
[2023-04-01 07:52] VITALS: BMI 25.7
[2023-04-01] MEDS ORDERED: FAMOTIDINE 10 MG/ML VIAL IVPB ONE (08:37)
[2023-04-01] MEDS ORDERED: ONDANSETRON 4 MG/2 ML VIAL ONE (08:37)
[2023-04-01] MEDS: ONDANSETRON 4 MG/2 ML VIAL IVPUSH ONE (08:43)
[2023-04-01] MEDS: SODIUM CHLORIDE 0.9% 500 ML INFUS.BAG IV ONE ×2 (08:43→10:10)
[2023-04-01] MEDS: FAMOTIDINE 20 MG/50 ML IVPB 20 MG/50 ML MG IVPB ONE (08:43)
[2023-04-01 08:58] LABS: BASO % 0.5 % (0-2.0); EOS % 0.8 % (0-4.5); HEMATOCRIT 46.2 % (35.4-49); HEMOGLOBIN 16.1 GM/dL (11.7-16.9); LYMPH % 29.3 % (8-40); MCH 29.7 pg (25.7-33.7); MCHC 34.9 g/dl (32.0-35.9); MEAN CELL VOLUME 85.1 fl (80-96); MONO % 6.3 % (3.8-10.2); NEUT % 63.1 % (42.8-82.8); PLATELET COUNT 153 10^3/uL (134-434); RBC 5.43 M/mm3 (4.00-5.60); RDW 13.8 % (11.9-15.9); WHITE BLOOD COUNT 4.4 K/mm3 (4.0-10.0)
[2023-04-01 08:59] LABS: INR 0.98 (0.83-1.09); PROTHROMBIN TIME (PATIENT) 11.4 SEC (9.7-13.0)
[2023-04-01 09:02] LABS: ACTIVATED PTT 32.5 SECONDS (25.2-36.5)
[2023-04-01 09:13] LABS: POTASSIUM 3.9 mmol/L (3.5-5.1)
[2023-04-01 09:16] LABS: ALBUMIN 4.1 g/dl (3.4-5.0); BLOOD UREA NITROGEN 7.9 mg/dL (7-18); CALCIUM 8.5 mg/dL (8.5-10.1)
[2023-04-01 09:19] LABS: CREATININE 0.8 mg/dL (0.55-1.3)
[2023-04-01 09:21] LABS: BILIRUBIN,TOTAL 1.1 mg/dL (0.2-1); TOT PROT 7.9 g/dl (6.4-8.2)
[2023-04-01] MEDS ORDERED: metFORMIN HCL 500 MG TABLET (FP) ONE (11:45)
[2023-04-01] MEDS: metFORMIN HCL 500 MG TABLET (FP) PO ONE (11:46)
[2023-04-01 13:35] VITALS: BP 145/89; RESP 20; TEMP 97.7
[2023-04-01 13:39] VITALS: PULSE 110
[2023-04-01] MEDS ORDERED: chlordiazePOXIDE HCL 25 MG CAPSULE ONE (13:56)
[2023-04-01] MEDS: chlordiazePOXIDE HCL 25 MG CAPSULE PO ONE (13:58)
== END 2023-04-01 14:25 | disposition home or self-care (01) ==
LOC: JER 07:40
PROC: 3E033GC Introduction of Other Therapeutic Substance into Peripheral Vein, Percutaneous Approach (ICD-10-PCS; principal; 2023-04-01)
PROC: 3E033GC Introduction of Other Therapeutic Substance into Peripheral Vein, Percutaneous Approach (ICD-10-PCS; 2023-04-01)
DX: F10.920 Alcohol use, unspecified with intoxication, uncomplicated (principal); Y90.9 Presence of alcohol in blood, level not specified
CPT/HCPCS: 36415; 71046-TC-FY; 80053; 80307; 82962; 83690; 83735; 84484; 85025; 85610; 85730; 93005; 93010; 99285-25

== ENCOUNTER 2023-04-01 16:24 | Inpatient (IN) | payer OTHER ==
[2023-04-01 17:43] VITALS: BMI 30.4
[2023-04-01] MEDS ORDERED: chlordiazePOXIDE HCL 25 MG CAPSULE PO PRN (21:30)
[2023-04-01] MEDS ORDERED: BENZONATATE 200 MG CAPSULE PO PRN (21:32)
[2023-04-01] MEDS ORDERED: guaiFENesin 600 MG TABLET.ER (FP) PO PRN (21:32)
[2023-04-01] MEDS ORDERED: BENZOCAINE/MENTHOL (CHLORASEPTIC ) LOZENGE MM PRN (21:32)
[2023-04-01] MEDS ORDERED: ACETAMINOPHEN 325 MG TABLET (FP) PO PRN (21:32)
[2023-04-01] MEDS ORDERED: METHOCARBAMOL 500 MG TABLET PO PRN (21:32)
[2023-04-01] MEDS ORDERED: BISMUTH SUBSALICYLATE 524 MG/30 ML PO PRN (21:32)
[2023-04-01] MEDS ORDERED: ONDANSETRON *ODT* 4 MG TABLET SL PRN (21:32)
[2023-04-01] MEDS ORDERED: IBUPROFEN 600 MG TABLET (FP) PO PRN (21:32)
[2023-04-01] MEDS ORDERED: P-EPHED 60MG/TRIPROLIDI 2.5MG TABLET PO PRN (21:32)
[2023-04-01] MEDS ORDERED: MAGNESIUM HYDROX 2400MG/30ML ORAL SUSPENSION 30 ML CUP PO PRN (21:32)
[2023-04-01] MEDS ORDERED: MAG HYDROX/AL HYDROX/SIMETH 30 ML UNIT-DOSE CUP PO PRN (21:32)
[2023-04-01] MEDS ORDERED: LOPERAMIDE HCL 2 MG CAPSULE PO PRN (21:32)
[2023-04-01] MEDS ORDERED: DICYCLOMINE HCL 10 MG CAPSULE PO PRN (21:32)
[2023-04-01] MEDS ORDERED: POLYETHYLENE GLYCOL (HEALTHYLAX) 3350 17 GM PACKET PO PRN (21:32)
[2023-04-01] MEDS ORDERED: IBUPROFEN 400 MG TABLET (FP) PO PRN (21:32)
[2023-04-01] MEDS ORDERED: chlordiazePOXIDE HCL 25 MG CAPSULE ONE (21:44)
[2023-04-01] MEDS: INSULIN SLIDING SCALE (NOVOLOG) 1 VIAL SQ SCH (21:44)
[2023-04-01] MEDS ORDERED: INSULIN (NOVOLOG) ASPART 100 UNITS/ML 10ML VIAL ONE (21:45)
[2023-04-01] MEDS ORDERED: METOPROLOL TARTRATE 25 MG TABLET (FP) ONE (21:45)
[2023-04-01] MEDS ORDERED: METOPROLOL TARTRATE 25 MG TABLET (FP) PO ONE (21:45)
[2023-04-01] MEDS ORDERED: MELATONIN 5 MG TABLETS ONE (21:45)
[2023-04-01] MEDS: THIAMINE HCL 100 MG TABLET (FP) PO SCH (21:46)
[2023-04-01] MEDS: MELATONIN 5 MG TABLETS PO SCH (21:47)
[2023-04-01] MEDS: chlordiazePOXIDE HCL 25 MG CAPSULE PO SCH (23:04)
[2023-04-01] MEDS: FAMOTIDINE 20 MG TABLET PO SCH (23:04)
[2023-04-02] MEDS: chlordiazePOXIDE HCL 25 MG CAPSULE PO SCH ×4 (05:16→22:11)
[2023-04-02] MEDS: INSULIN SLIDING SCALE (NOVOLOG) 1 VIAL SQ SCH ×4 (07:11→22:11)
[2023-04-02] MEDS: FAMOTIDINE 20 MG TABLET PO SCH ×2 (10:17→22:11)
[2023-04-02] MEDS: PRENATAL VITAMINS W/ FOLIC ACID TABLET (FP) PO SCH (10:17)
[2023-04-02] MEDS: FOLIC ACID 1 MG TABLET (FP) PO SCH (10:17)
[2023-04-02] MEDS ORDERED: INSULIN (NOVOLOG) ASPART 100 UNITS/ML 10ML VIAL ONE ×2 (11:30→17:05)
[2023-04-02] MEDS: MELATONIN 5 MG TABLETS PO SCH (22:11)
[2023-04-02] MEDS: THIAMINE HCL 100 MG TABLET (FP) PO SCH (22:11)
[2023-04-03] MEDS: chlordiazePOXIDE HCL 25 MG CAPSULE PO SCH ×4 (05:14→22:04)
[2023-04-03] MEDS: INSULIN SLIDING SCALE (NOVOLOG) 1 VIAL SQ SCH ×4 (06:59→22:11)
[2023-04-03] MEDS ORDERED: SIMETHICONE 80 MG TAB.CHEW (FP) PO PRN (09:43)
[2023-04-03] MEDS: PRENATAL VITAMINS W/ FOLIC ACID TABLET (FP) PO SCH (10:26)
[2023-04-03] MEDS: FOLIC ACID 1 MG TABLET (FP) PO SCH (10:26)
[2023-04-03] MEDS: FAMOTIDINE 20 MG TABLET PO SCH ×2 (10:26→22:04)
[2023-04-03] MEDS ORDERED: INSULIN (NOVOLOG) ASPART 100 UNITS/ML 10ML VIAL ONE ×2 (16:41→22:09)
[2023-04-03] MEDS: THIAMINE HCL 100 MG TABLET (FP) PO SCH (22:04)
[2023-04-03] MEDS: MELATONIN 5 MG TABLETS PO SCH (22:05)
[2023-04-04] MEDS ORDERED: chlordiazePOXIDE HCL 10 MG CAPSULE PO PRN
[2023-04-04] MEDS: chlordiazePOXIDE HCL 10 MG CAPSULE PO SCH ×4 (05:40→22:33)
[2023-04-04] MEDS ORDERED: INSULIN (NOVOLOG) ASPART 100 UNITS/ML 10ML VIAL ONE ×4 (05:55→16:51)
[2023-04-04] MEDS: INSULIN SLIDING SCALE (NOVOLOG) 1 VIAL SQ SCH ×4 (06:27→22:33)
[2023-04-04] MEDS: PRENATAL VITAMINS W/ FOLIC ACID TABLET (FP) PO SCH (10:17)
[2023-04-04] MEDS: FOLIC ACID 1 MG TABLET (FP) PO SCH (10:17)
[2023-04-04] MEDS: FAMOTIDINE 20 MG TABLET PO SCH ×2 (10:17→22:33)
[2023-04-04] MEDS: MELATONIN 5 MG TABLETS PO SCH (22:33)
[2023-04-04] MEDS: THIAMINE HCL 100 MG TABLET (FP) PO SCH (22:33)
[2023-04-05] MEDS: chlordiazePOXIDE HCL 10 MG CAPSULE PO SCH ×2 (05:45→17:38)
[2023-04-05] MEDS: INSULIN SLIDING SCALE (NOVOLOG) 1 VIAL SQ SCH ×4 (06:03→22:34)
[2023-04-05] MEDS: FAMOTIDINE 20 MG TABLET PO SCH ×2 (09:33→22:34)
[2023-04-05] MEDS: PRENATAL VITAMINS W/ FOLIC ACID TABLET (FP) PO SCH (09:33)
[2023-04-05] MEDS: FOLIC ACID 1 MG TABLET (FP) PO SCH (09:33)
[2023-04-05] MEDS ORDERED: INSULIN (NOVOLOG) ASPART 100 UNITS/ML 10ML VIAL ONE (17:12)
[2023-04-05] MEDS: THIAMINE HCL 100 MG TABLET (FP) PO SCH (22:34)
[2023-04-05] MEDS: MELATONIN 5 MG TABLETS PO SCH (22:34)
[2023-04-06] MEDS ORDERED: chlordiazePOXIDE HCL 10 MG CAPSULE PO ONE (05:00)
[2023-04-06] MEDS: INSULIN SLIDING SCALE (NOVOLOG) 1 VIAL SQ SCH (06:54)
[2023-04-06 09:23] VITALS: BP 110/72; PULSE 87; RESP 18; TEMP 97.5
[2023-04-06] MEDS: FAMOTIDINE 20 MG TABLET PO SCH (09:54)
[2023-04-06] MEDS: PRENATAL VITAMINS W/ FOLIC ACID TABLET (FP) PO SCH (09:54)
[2023-04-06] MEDS: FOLIC ACID 1 MG TABLET (FP) PO SCH (09:54)
== END 2023-04-06 10:10 | disposition home or self-care (01) | DRG 775 ==
LOC: YASAS 16:24 → Y6N 21:45
PROVIDERS: ADMIT Allergy & Immunology; ATTEND Surgery
PROC: HZ2ZZZZ Detoxification Services for Substance Abuse Treatment (ICD-10-PCS; principal; 2023-04-01)
DX: F10.230 Alcohol dependence with withdrawal, uncomplicated (principal); K21.9 Gastro-esophageal reflux disease without esophagitis; E11.65 Type 2 diabetes mellitus with hyperglycemia; Z79.84 Long term (current) use of oral hypoglycemic drugs
CPT/HCPCS: 82962; 87635

== ENCOUNTER 2023-04-19 12:32 | Inpatient (IN) | payer OTHER ==
[2023-04-19 12:37] VITALS: BMI 27.4
[2023-04-19] MEDS ORDERED: ACETAMINOPHEN 1000 MG/100 ML BAG IVPB ONE (13:21)
[2023-04-19] MEDS ORDERED: FAMOTIDINE 20 MG/50 ML IVPB 20 MG/50 ML MG IVPB ONE ×2 (13:23→13:50)
[2023-04-19] MEDS ORDERED: MAG HYDROX/AL HYDROX/SIMETH 30 ML UNIT-DOSE CUP PO ONE (13:23)
[2023-04-19] MEDS ORDERED: SODIUM CHLORIDE 1,000 ML IV STA ×2 (13:23→15:33)
[2023-04-19] MEDS ORDERED: ACETAMINOPHEN INJECTION 100 ML IVPB ONE (13:50)
[2023-04-19] MEDS ORDERED: MAG HYDROX/AL HYDROX/SIMETH 30 ML UNIT-DOSE CUP ONE (13:50)
[2023-04-19 14:34] LABS: HEMATOCRIT 44.6 % (35.4-49); HEMOGLOBIN 15.6 GM/dL (11.7-16.9); MCH 29.5 pg (25.7-33.7); MEAN CELL VOLUME 84.2 fl (80-96); MEAN PLT VOLUME 7.5 fl (7.5-11.1); PLATELET COUNT 191 10^3/uL (134-434); RDW 14.5 % (11.9-15.9); WHITE BLOOD COUNT 2.7 K/mm3 (4.0-10.0)
[2023-04-19 14:39] LABS: VENOUS O2 SATURATION 92.9 % (70-80); VENOUS PCO2 40.4 mmHg (38-52); VENOUS PH 7.403 (7.310-7.410)
[2023-04-19 14:44] LABS: POTASSIUM 3.9 mmol/L (3.5-5.1)
[2023-04-19 14:46] LABS: CALCIUM 8.6 mg/dL (8.5-10.1)
[2023-04-19 14:47] LABS: ALBUMIN 4.2 g/dl (3.4-5.0); BLOOD UREA NITROGEN 5.5 mg/dL (7-18)
[2023-04-19 14:49] LABS: CREATININE 0.7 mg/dL (0.55-1.3)
[2023-04-19 14:51] LABS: BILIRUBIN,TOTAL 1.3 mg/dL (0.2-1); TOT PROT 8.1 g/dl (6.4-8.2)
[2023-04-19] MEDS ORDERED: THIAMINE HCL 200 MG/2 ML VIAL IVPB ONE (15:28)
[2023-04-19 16:01] LABS: BILIRUBIN,DIRECT 0.3 mg/dL (0.0-0.2)
[2023-04-19] MEDS ORDERED: THIAMINE HCL 200 MG/2 ML VIAL ONE (16:14)
[2023-04-19] MEDS ORDERED: PANTOPRAZOLE SODIUM 40 MG VIAL IVPUSH ONE (16:51)
[2023-04-19] MEDS ORDERED: ONDANSETRON 4 MG/2 ML VIAL IVPUSH ONE (16:52)
[2023-04-19] MEDS ORDERED: ONDANSETRON 4 MG/2 ML VIAL ONE (18:16)
[2023-04-19] MEDS ORDERED: PANTOPRAZOLE SODIUM 40 MG VIAL ONE (18:16)
[2023-04-19] MEDS ORDERED: FAMOTIDINE 20 MG TABLET PO SCH (22:00)
[2023-04-19] MEDS ORDERED: chlordiazePOXIDE HCL 25 MG CAPSULE PO PRN (22:02)
[2023-04-19] MEDS: SODIUM CHLORIDE 0.45%/POT 20 MEQ/1,000 ML INFUS.BAG IV SCH (22:25)
[2023-04-20] MEDS: chlordiazePOXIDE HCL 25 MG CAPSULE PO SCH ×5 (02:21→22:18)
[2023-04-20] MEDS ORDERED: chlordiazePOXIDE HCL 25 MG CAPSULE ONE ×5 (02:25→21:49)
[2023-04-20] MEDS ORDERED: INSULIN (NOVOLOG) ASPART 100 UNITS/ML 10ML VIAL ONE (06:58)
[2023-04-20] MEDS ORDERED: INSULIN (NOVOLOG) ASPART 100 UNITS/ML 10ML VIAL SQ SCH (07:00)
[2023-04-20] MEDS: INSULIN ASPART SLIDING SCALE (NOVOLOG) 1 VIAL SQ SCH ×4 (07:01→23:05)
[2023-04-20 08:19] LABS: BASO % 0.6 % (0-2.0); EOS % 2.2 % (0-4.5); HEMATOCRIT 40.4 % (35.4-49); HEMOGLOBIN 13.8 GM/dL (11.7-16.9); LYMPH % 25.6 % (8-40); MCH 29.5 pg (25.7-33.7); MCHC 34.2 g/dl (32.0-35.9); MEAN CELL VOLUME 86.3 fl (80-96); MEAN PLT VOLUME 7.9 fl (7.5-11.1); MONO % 9.3 % (3.8-10.2); NEUT % 62.3 % (42.8-82.8); PLATELET COUNT 150 10^3/uL (134-434); RBC 4.68 M/mm3 (4.00-5.60); RDW 14.5 % (11.9-15.9); WHITE BLOOD COUNT 3.2 K/mm3 (4.0-10.0)
[2023-04-20 08:33] LABS: POTASSIUM 3.9 mmol/L (3.5-5.1)
[2023-04-20 08:36] LABS: ALBUMIN 3.5 g/dl (3.4-5.0); BLOOD UREA NITROGEN 7.1 mg/dL (7-18)
[2023-04-20 08:39] LABS: CREATININE 0.6 mg/dL (0.55-1.3)
[2023-04-20 08:40] LABS: TOT PROT 6.8 g/dl (6.4-8.2)
[2023-04-20 08:41] LABS: BILIRUBIN,TOTAL 1.6 mg/dL (0.2-1)
[2023-04-20 08:52] LABS: CHOLESTEROL 283 mg/dL (50-200)
[2023-04-20 08:53] LABS: LDL CHOLESTEROL (ONLY SJRH) 167 mg/dL (5-100)
[2023-04-20 08:55] LABS: HDL CHOLESTEROL 62 mg/dL (40-60)
[2023-04-20] MEDS: MULTIVITAMINS (DAILY MVI) TABLET (FP) PO SCH (10:40)
[2023-04-20] MEDS: FOLIC ACID 1 MG TABLET (FP) PO SCH (10:40)
[2023-04-20] MEDS: PANTOPRAZOLE SODIUM 40 MG VIAL IVPUSH SCH ×2 (10:40→22:18)
[2023-04-20] MEDS: THIAMINE HCL 200 MG/2 ML VIAL IVPB SCH (12:10)
[2023-04-20] MEDS ORDERED: PANTOPRAZOLE SODIUM 40 MG VIAL ONE (21:49)
[2023-04-20] MEDS: SODIUM CHLORIDE 0.45%/POT 20 MEQ/1,000 ML INFUS.BAG IV SCH (22:18)
[2023-04-21] MEDS: INSULIN ASPART SLIDING SCALE (NOVOLOG) 1 VIAL SQ SCH ×4 (06:13→22:16)
[2023-04-21] MEDS: chlordiazePOXIDE HCL 25 MG CAPSULE PO SCH ×4 (06:13→22:16)
[2023-04-21] MEDS: PANTOPRAZOLE SODIUM 40 MG VIAL IVPUSH SCH ×2 (10:23→22:15)
[2023-04-21] MEDS: FOLIC ACID 1 MG TABLET (FP) PO SCH (10:25)
[2023-04-21] MEDS: MULTIVITAMINS (DAILY MVI) TABLET (FP) PO SCH (10:25)
[2023-04-21] MEDS: THIAMINE HCL 200 MG/2 ML VIAL IVPB SCH (10:25)
[2023-04-21] MEDS: SODIUM CHLORIDE 0.45%/POT 20 MEQ/1,000 ML INFUS.BAG IV SCH (22:15)
[2023-04-22] MEDS ORDERED: chlordiazePOXIDE HCL 10 MG CAPSULE PO PRN
[2023-04-22] MEDS: chlordiazePOXIDE HCL 10 MG CAPSULE PO SCH ×4 (05:53→23:10)
[2023-04-22] MEDS: INSULIN ASPART SLIDING SCALE (NOVOLOG) 1 VIAL SQ SCH ×4 (06:00→21:09)
[2023-04-22 08:42] LABS: INR 1.03 (0.83-1.09); PROTHROMBIN TIME (PATIENT) 11.9 SEC (9.7-13.0)
[2023-04-22 08:45] LABS: BASO % 0.4 % (0-2.0); EOS % 2.6 % (0-4.5); HEMATOCRIT 42.1 % (35.4-49); HEMOGLOBIN 14.5 GM/dL (11.7-16.9); LYMPH % 17.9 % (8-40); MCH 29.6 pg (25.7-33.7); MCHC 34.3 g/dl (32.0-35.9); MEAN CELL VOLUME 86.2 fl (80-96); MEAN PLT VOLUME 7.8 fl (7.5-11.1); MONO % 5.3 % (3.8-10.2); NEUT % 73.8 % (42.8-82.8); PLATELET COUNT 124 10^3/uL (134-434); RBC 4.88 M/mm3 (4.00-5.60); RDW 14.5 % (11.9-15.9); WHITE BLOOD COUNT 4.5 K/mm3 (4.0-10.0)
[2023-04-22 08:59] LABS: POTASSIUM 3.8 mmol/L (3.5-5.1)
[2023-04-22 09:01] LABS: CALCIUM 8.4 mg/dL (8.5-10.1)
[2023-04-22 09:02] LABS: ALBUMIN 3.3 g/dl (3.4-5.0); BLOOD UREA NITROGEN 12.2 mg/dL (7-18)
[2023-04-22 09:05] LABS: CREATININE 0.9 mg/dL (0.55-1.3)
[2023-04-22 09:06] LABS: TOT PROT 6.7 g/dl (6.4-8.2)
[2023-04-22 09:07] LABS: BILIRUBIN,TOTAL 1.3 mg/dL (0.2-1)
[2023-04-22] MEDS: PANTOPRAZOLE SODIUM 40 MG VIAL IVPUSH SCH ×2 (09:31→21:09)
[2023-04-22] MEDS: FOLIC ACID 1 MG TABLET (FP) PO SCH (09:31)
[2023-04-22] MEDS: MULTIVITAMINS (DAILY MVI) TABLET (FP) PO SCH (09:31)
[2023-04-22] MEDS: THIAMINE HCL 200 MG/2 ML VIAL IVPB SCH (09:31)
[2023-04-22] MEDS: NADOLOL 20 MG TABLET (FP) PO SCH (09:31)
[2023-04-22] MEDS: SODIUM CHLORIDE 0.45%/POT 20 MEQ/1,000 ML INFUS.BAG IV SCH ×2 (17:26→23:08)
[2023-04-23] MEDS ORDERED: chlordiazePOXIDE HCL 10 MG CAPSULE PO SCH (05:00)
[2023-04-23] MEDS: INSULIN ASPART SLIDING SCALE (NOVOLOG) 1 VIAL SQ SCH ×2 (06:17→12:00)
[2023-04-23 06:24] VITALS: RESP 16
[2023-04-23] MEDS: PANTOPRAZOLE SODIUM 40 MG VIAL IVPUSH SCH (09:07)
[2023-04-23] MEDS: FOLIC ACID 1 MG TABLET (FP) PO SCH (09:09)
[2023-04-23] MEDS: NADOLOL 20 MG TABLET (FP) PO SCH (09:09)
[2023-04-23] MEDS: MULTIVITAMINS (DAILY MVI) TABLET (FP) PO SCH (09:09)
[2023-04-23] MEDS: THIAMINE HCL 200 MG/2 ML VIAL IVPB SCH (09:09)
[2023-04-23 16:08] VITALS: BP 107/69; PULSE 75; TEMP 97.7
[2023-04-24] MEDS ORDERED: chlordiazePOXIDE HCL 10 MG CAPSULE PO ONE (05:00)
== END 2023-04-23 16:55 | disposition home or self-care (01) | DRG 775 ==
LOC: JER 12:32 → JERBED 16:12 → OBSVTOIN 21:59 → J4S 04-20 23:13
PROVIDERS: ADMIT Internal Medicine; ATTEND Internal Medicine
PROC: 0DB68ZX Excision of Stomach, Via Natural or Artificial Opening Endoscopic, Diagnostic (ICD-10-PCS; principal; 2023-04-21 13:00)
DX: F10.230 Alcohol dependence with withdrawal, uncomplicated (principal); E78.5 Hyperlipidemia, unspecified; F10.220 Alcohol dependence with intoxication, uncomplicated; K21.9 Gastro-esophageal reflux disease without esophagitis; K76.0 Fatty (change of) liver, not elsewhere classified; U07.1 COVID-19; E11.65 Type 2 diabetes mellitus with hyperglycemia; E87.1 Hypo-osmolality and hyponatremia; K29.20 Alcoholic gastritis without bleeding; K92.0 Hematemesis; I85.00 Esophageal varices without bleeding; K76.6 Portal hypertension; K31.89 Other diseases of stomach and duodenum
CPT/HCPCS: 0241U-QW; 36415; 71045-TC-FY; 72192-TC; 74160-TC; 80053; 80061; 80307; 82010; 82105; 82248; 82803; 82962; 83036; 83690; 84443; 84484; 85025; 85027; 85610; 86038; 88305-TC; 93005; 93010; 99285-25; G0378; J3480; Q9967

== ENCOUNTER 2023-05-21 16:23 | Inpatient (IN) | payer SELFPAY ==
[2023-05-21] MEDS ORDERED: ACETAMINOPHEN INJECTION 100 ML IVPB ONE (18:30)
[2023-05-21] MEDS ORDERED: ONDANSETRON 4 MG/2 ML VIAL ONE (18:31)
[2023-05-21] MEDS ORDERED: FAMOTIDINE 20 MG/50 ML IVPB 20 MG/50 ML MG IVPB ONE (18:31)
[2023-05-21] MEDS ORDERED: MAG HYDROX/AL HYDROX/SIMETH 30 ML UNIT-DOSE CUP ONE (18:31)
[2023-05-21] MEDS: ACETAMINOPHEN 1000 MG/100 ML BAG IVPB ONE (18:32)
[2023-05-21] MEDS: MAG HYDROX/AL HYDROX/SIMETH 30 ML UNIT-DOSE CUP PO ONE (18:32)
[2023-05-21] MEDS: SODIUM CHLORIDE 1,000 ML IV STA ×2 (18:32→20:47)
[2023-05-21] MEDS: ONDANSETRON 4 MG/2 ML VIAL IVPUSH ONE (18:32)
[2023-05-21] MEDS: FAMOTIDINE 20 MG/50 ML IVPB 20 MG/50 ML MG IVPB ONE (18:32)
[2023-05-21 18:35] LABS: VENOUS BASE EXCESS 2.6 mmol/L (-2-2); VENOUS O2 SATURATION 88.8 % (70-80); VENOUS PCO2 46.7 mmHg (38-52); VENOUS PH 7.399 (7.310-7.410)
[2023-05-21 18:36] LABS: BASO % 0.7 % (0-2.0); EOS % 0.8 % (0-4.5); HEMATOCRIT 44.5 % (35.4-49); HEMOGLOBIN 15.6 GM/dL (11.7-16.9); LYMPH % 30.5 % (8-40); MEAN CELL VOLUME 85.7 fl (80-96); MEAN PLT VOLUME 7.6 fl (7.5-11.1); MONO % 6.6 % (3.8-10.2); NEUT % 61.4 % (42.8-82.8); PLATELET COUNT 203 10^3/uL (134-434); RBC 5.19 M/mm3 (4.00-5.60); RDW 14.7 % (11.9-15.9); WHITE BLOOD COUNT 4.8 K/mm3 (4.0-10.0)
[2023-05-21 18:57] LABS: MAGNESIUM 2.4 mg/dL (1.8-2.4)
[2023-05-21] MEDS ORDERED: FOLIC ACID 1 MG TABLET (FP) ONE (18:57)
[2023-05-21] MEDS ORDERED: diazePAM CARPU-JECT 10 MG/2 ML DISP.SYRIN ONE (18:57)
[2023-05-21] MEDS: diazePAM CARPU-JECT 10 MG/2 ML DISP.SYRIN IVPUSH ONE (18:59)
[2023-05-21] MEDS: FOLIC ACID 1 MG TABLET (FP) PO ONE (18:59)
[2023-05-21 19:01] LABS: PHOSPHOROUS 3.1 mg/dL (2.5-4.9)
[2023-05-21 19:07] LABS: POTASSIUM 3.9 mmol/L (3.5-5.1)
[2023-05-21 19:09] LABS: CALCIUM 8.6 mg/dL (8.5-10.1)
[2023-05-21 19:10] LABS: ALBUMIN 4.4 g/dl (3.4-5.0); BLOOD UREA NITROGEN 5.4 mg/dL (7-18)
[2023-05-21 19:13] LABS: CREATININE 0.8 mg/dL (0.55-1.3)
[2023-05-21 19:15] LABS: TOT PROT 8.2 g/dl (6.4-8.2)
[2023-05-21 19:25] LABS: LACTIC ACID 5.9 mmol/L (0.4-2.0)
[2023-05-21] MEDS ORDERED: THIAMINE HCL 200 MG/2 ML VIAL ONE (19:57)
[2023-05-21] MEDS: LACTATED RINGERS SOLUTION 1000 ML INFUS.BAG IV ONE (20:08)
[2023-05-21] MEDS: THIAMINE HCL 200 MG/2 ML VIAL IVPB ONE (20:08)
[2023-05-21] MEDS ORDERED: SUCRALFATE 1 GM TABLET (FP) ONE (21:23)
[2023-05-21] MEDS ORDERED: TRIMETHOBENZAMIDE HCL 200MG/2ML INJ IM ONE (21:23)
[2023-05-21] MEDS: SUCRALFATE 1 GM TABLET (FP) PO ONE (21:29)
[2023-05-21] MEDS: TRIMETHOBENZAMIDE HCL 200MG/2ML INJ IM ONE (21:29)
[2023-05-22 00:10] LABS: LACTIC ACID 4.3 mmol/L (0.4-2.0)
[2023-05-22] MEDS ORDERED: chlordiazePOXIDE HCL 25 MG CAPSULE PO PRN (02:57)
[2023-05-22] MEDS: chlordiazePOXIDE HCL 25 MG CAPSULE PO SCH (04:22)
[2023-05-22] MEDS: LACTATED RINGERS SOLUTION 1,000 ML/1,000 ML INFUS.BAG IV SCH (04:22)
[2023-05-22] MEDS ORDERED: chlordiazePOXIDE HCL 25 MG CAPSULE ONE ×2 (04:23→09:53)
[2023-05-22] MEDS: FOLIC ACID INJECTION - 1 MG, THIAMINE HCL 100 MG, MULTIVIT INJECTION ADULT 10 ML in SOD... IVPB ONE (04:30)
[2023-05-22] MEDS: TRIMETHOBENZAMIDE HCL 200MG/2ML INJ IM ONE (04:52)
[2023-05-22] MEDS: INSULIN ASPART SLIDING SCALE (NOVOLOG) 1 VIAL SQ SCH (07:53)
[2023-05-22 08:02] LABS: BASO % 0.5 % (0-2.0); EOS % 0.7 % (0-4.5); HEMATOCRIT 39.6 % (35.4-49); HEMOGLOBIN 13.5 GM/dL (11.7-16.9); LYMPH % 19.6 % (8-40); MCH 29.4 pg (25.7-33.7); MEAN CELL VOLUME 86.4 fl (80-96); MEAN PLT VOLUME 7.5 fl (7.5-11.1); MONO % 7.9 % (3.8-10.2); NEUT % 71.3 % (42.8-82.8); PLATELET COUNT 135 10^3/uL (134-434); RBC 4.58 M/mm3 (4.00-5.60); RDW 14.8 % (11.9-15.9); WHITE BLOOD COUNT 5.4 K/mm3 (4.0-10.0)
[2023-05-22 08:21] LABS: POTASSIUM 3.7 mmol/L (3.5-5.1)
[2023-05-22 08:23] LABS: CALCIUM 8.2 mg/dL (8.5-10.1)
[2023-05-22 08:24] LABS: ALBUMIN 3.6 g/dl (3.4-5.0); BLOOD UREA NITROGEN 5.8 mg/dL (7-18)
[2023-05-22 08:27] LABS: CREATININE 0.7 mg/dL (0.55-1.3); PHOSPHOROUS 2.9 mg/dL (2.5-4.9)
[2023-05-22 08:28] LABS: BILIRUBIN,TOTAL 1.4 mg/dL (0.2-1); TOT PROT 6.5 g/dl (6.4-8.2)
[2023-05-22] MEDS: ENOXAPARIN NA (PORCINE) 40 MG/0.4 ML DISP.SYRIN SQ SCH (09:12)
[2023-05-22] MEDS: THIAMINE HCL 100 MG TABLET (FP) PO SCH (09:12)
[2023-05-22] MEDS: FOLIC ACID 1 MG TABLET (FP) PO SCH (09:12)
[2023-05-22] MEDS ORDERED: MAG HYDROX/AL HYDROX/SIMETH 30 ML UNIT-DOSE CUP PO PRN (12:08)
[2023-05-23] MEDS: chlordiazePOXIDE HCL 25 MG CAPSULE PO SCH (06:54)
[2023-05-23 09:22] LABS: BASO % 0.4 % (0-2.0); EOS % 2.7 % (0-4.5); HEMATOCRIT 40.6 % (35.4-49); HEMOGLOBIN 14.1 GM/dL (11.7-16.9); LYMPH % 29.7 % (8-40); MCH 29.7 pg (25.7-33.7); MCHC 34.8 g/dl (32.0-35.9); MEAN CELL VOLUME 85.3 fl (80-96); MONO % 6.2 % (3.8-10.2); PLATELET COUNT 132 10^3/uL (134-434); RBC 4.76 M/mm3 (4.00-5.60); RDW 14.4 % (11.9-15.9); WHITE BLOOD COUNT 4.2 K/mm3 (4.0-10.0)
[2023-05-23 09:41] LABS: POTASSIUM 3.8 mmol/L (3.5-5.1)
[2023-05-23 09:46] LABS: CALCIUM 8.8 mg/dL (8.5-10.1)
[2023-05-23 09:47] LABS: BLOOD UREA NITROGEN 8.2 mg/dL (7-18)
[2023-05-23 09:48] LABS: ALBUMIN 3.5 g/dl (3.4-5.0)
[2023-05-23 09:50] LABS: CREATININE 0.6 mg/dL (0.55-1.3)
[2023-05-23 09:51] LABS: BILIRUBIN,TOTAL 1.7 mg/dL (0.2-1); TOT PROT 6.6 g/dl (6.4-8.2)
[2023-05-23] MEDS: NADOLOL 20 MG TABLET (FP) PO SCH (10:16)
[2023-05-23] MEDS: PANTOPRAZOLE 40 MG TABLET PO SCH (10:16)
[2023-05-23] MEDS ORDERED: INSULIN (NOVOLOG) ASPART 100 UNITS/ML 10ML VIAL ONE (12:13)
[2023-05-24] MEDS ORDERED: chlordiazePOXIDE HCL 10 MG CAPSULE PO PRN
[2023-05-24] MEDS: chlordiazePOXIDE HCL 10 MG CAPSULE PO SCH (06:35)
[2023-05-24 09:05] LABS: BASO % 0.4 % (0-2.0); EOS % 3.1 % (0-4.5); HEMATOCRIT 39.2 % (35.4-49); HEMOGLOBIN 13.6 GM/dL (11.7-16.9); LYMPH % 24.7 % (8-40); MCH 29.8 pg (25.7-33.7); MCHC 34.8 g/dl (32.0-35.9); MEAN CELL VOLUME 85.7 fl (80-96); MEAN PLT VOLUME 8.3 fl (7.5-11.1); MONO % 7.1 % (3.8-10.2); NEUT % 64.7 % (42.8-82.8); PLATELET COUNT 111 10^3/uL (134-434); RBC 4.58 M/mm3 (4.00-5.60); RDW 14.7 % (11.9-15.9)
[2023-05-24 09:21] LABS: POTASSIUM 3.7 mmol/L (3.5-5.1)
[2023-05-24 09:26] LABS: BLOOD UREA NITROGEN 11.6 mg/dL (7-18); CALCIUM 8.2 mg/dL (8.5-10.1)
[2023-05-24 09:27] LABS: ALBUMIN 3.4 g/dl (3.4-5.0)
[2023-05-24 09:30] LABS: CREATININE 0.6 mg/dL (0.55-1.3)
[2023-05-24 09:32] LABS: TOT PROT 6.5 g/dl (6.4-8.2)
[2023-05-25] MEDS: chlordiazePOXIDE HCL 10 MG CAPSULE PO SCH (05:39)
[2023-05-25 10:36] LABS: BASO % 0.4 % (0-2.0); EOS % 2.6 % (0-4.5); HEMATOCRIT 42.4 % (35.4-49); HEMOGLOBIN 14.3 GM/dL (11.7-16.9); MCH 29.5 pg (25.7-33.7); MCHC 33.7 g/dl (32.0-35.9); MEAN CELL VOLUME 87.5 fl (80-96); MEAN PLT VOLUME 8.1 fl (7.5-11.1); PLATELET COUNT 136 10^3/uL (134-434); RBC 4.85 M/mm3 (4.00-5.60); RDW 14.6 % (11.9-15.9); WHITE BLOOD COUNT 7.4 K/mm3 (4.0-10.0)
[2023-05-25 10:58] LABS: POTASSIUM 3.8 mmol/L (3.5-5.1)
[2023-05-25 11:01] LABS: CALCIUM 8.9 mg/dL (8.5-10.1)
[2023-05-25 11:02] LABS: ALBUMIN 3.6 g/dl (3.4-5.0); BLOOD UREA NITROGEN 13.8 mg/dL (7-18)
[2023-05-25 11:05] LABS: CREATININE 0.8 mg/dL (0.55-1.3); TOT PROT 7.1 g/dl (6.4-8.2)
[2023-05-25] MEDS ORDERED: INSULIN (NOVOLOG) ASPART 100 UNITS/ML 10ML VIAL ONE ×2 (14:25→17:27)
[2023-05-25 18:33] VITALS: BP 118/80; PULSE 77; RESP 20; TEMP 98.2
[2023-05-26] MEDS ORDERED: chlordiazePOXIDE HCL 10 MG CAPSULE PO ONE (05:00)
== END 2023-05-25 18:48 | disposition home or self-care (01) | DRG 241 ==
LOC: JER 16:23 → JERBED 23:46 → J8W 05-22 15:18
PROVIDERS: ADMIT Internal Medicine; ATTEND Internal Medicine
PROC: HZ2ZZZZ Detoxification Services for Substance Abuse Treatment (ICD-10-PCS; principal; 2023-05-22)
DX: K29.20 Alcoholic gastritis without bleeding (principal); F10.239 Alcohol dependence with withdrawal, unspecified; E87.20 Acidosis, unspecified; D69.6 Thrombocytopenia, unspecified; E11.65 Type 2 diabetes mellitus with hyperglycemia; E78.5 Hyperlipidemia, unspecified; I10 Essential (primary) hypertension; K21.9 Gastro-esophageal reflux disease without esophagitis; K76.0 Fatty (change of) liver, not elsewhere classified; E66.9 Obesity, unspecified; Z68.30 Body mass index [BMI] 30.0-30.9, adult
CPT/HCPCS: 36415; 74177-TC; 80053; 80307; 82010; 82803; 82962; 83036; 83605; 83690; 83735; 84100; 85025; 93005; 93010; 99291; J0131; Q9967

== ENCOUNTER 2023-09-04 03:00 | Inpatient (IN) | payer SELFPAY ==
[2023-09-04 04:13] VITALS: BMI 27.3
[2023-09-04] MEDS ORDERED: chlordiazePOXIDE HCL 25 MG CAPSULE PO PRN (04:18)
[2023-09-04] MEDS ORDERED: hydrOXYzine PAMOATE 25 MG CAPSULE (FP) PO PRN (04:20)
[2023-09-04] MEDS ORDERED: BENZOCAINE/MENTHOL (CHLORASEPTIC ) LOZENGE MM PRN (04:20)
[2023-09-04] MEDS ORDERED: ONDANSETRON *ODT* 4 MG TABLET SL PRN (04:20)
[2023-09-04] MEDS ORDERED: guaiFENesin 600 MG TABLET.ER (FP) PO PRN (04:20)
[2023-09-04] MEDS ORDERED: POLYETHYLENE GLYCOL (HEALTHYLAX) 3350 17 GM PACKET PO PRN (04:20)
[2023-09-04] MEDS ORDERED: DICYCLOMINE HCL 10 MG CAPSULE PO PRN (04:20)
[2023-09-04] MEDS ORDERED: MAGNESIUM HYDROX 2400MG/30ML ORAL SUSPENSION 30 ML CUP PO PRN (04:20)
[2023-09-04] MEDS ORDERED: BISMUTH SUBSALICYLATE 524 MG/30 ML PO PRN (04:20)
[2023-09-04] MEDS ORDERED: MAG HYDROX/AL HYDROX/SIMETH 30 ML UNIT-DOSE CUP PO PRN (04:20)
[2023-09-04] MEDS ORDERED: IBUPROFEN 400 MG TABLET (FP) PO PRN (04:20)
[2023-09-04] MEDS ORDERED: BENZONATATE 200 MG CAPSULE PO PRN (04:20)
[2023-09-04] MEDS: TRIMETHOBENZAMIDE HCL 200MG/2ML INJ IM ONE (04:47)
[2023-09-04] MEDS: METOPROLOL TARTRATE 25 MG TABLET (FP) PO ONE (04:48)
[2023-09-04] MEDS ORDERED: chlordiazePOXIDE HCL 25 MG CAPSULE ONE (05:08)
[2023-09-04] MEDS: chlordiazePOXIDE HCL 25 MG CAPSULE PO SCH (05:09)
[2023-09-04] MEDS: metFORMIN HCL 500 MG TABLET (FP) PO SCH (06:38)
[2023-09-04] MEDS: ACETAMINOPHEN 325 MG TABLET (FP) PO PRN (09:11)
[2023-09-04] MEDS: PRENATAL VITAMINS W/ FOLIC ACID TABLET (FP) PO SCH (10:28)
[2023-09-04] MEDS: NADOLOL 20 MG TABLET (FP) PO SCH (10:29)
[2023-09-04] MEDS: PANTOPRAZOLE 40 MG TABLET PO SCH (10:29)
[2023-09-04] MEDS: FOLIC ACID 1 MG TABLET (FP) PO SCH (10:29)
[2023-09-04] MEDS: METOPROLOL TARTRATE 50 MG TABLET (FP) PO ONE (20:42)
[2023-09-04] MEDS: THIAMINE 100 MG TABLET PO SCH (21:46)
[2023-09-04] MEDS: MELATONIN 5 MG TABLETS PO SCH (21:46)
[2023-09-04] MEDS: INSULIN ASPART SLIDING SCALE (NOVOLOG) 1 VIAL SQ SCH (21:51)
[2023-09-05] MEDS: chlordiazePOXIDE HCL 25 MG CAPSULE PO SCH (05:21)
[2023-09-05] MEDS ORDERED: INSULIN ASPART SLIDING SCALE (NOVOLOG) 1 VIAL SQ ONE (07:18)
[2023-09-05] MEDS: METHOCARBAMOL 500 MG TABLET PO PRN (22:28)
[2023-09-06] MEDS ORDERED: chlordiazePOXIDE HCL 10 MG CAPSULE PO PRN
[2023-09-06] MEDS: chlordiazePOXIDE HCL 10 MG CAPSULE PO SCH (05:40)
[2023-09-06] MEDS ORDERED: INSULIN ASPART SLIDING SCALE (NOVOLOG) 1 VIAL SQ ONE (06:18)
[2023-09-07] MEDS: chlordiazePOXIDE HCL 10 MG CAPSULE PO SCH (05:42)
[2023-09-07] MEDS: LOPERAMIDE HCL 2 MG CAPSULE PO PRN (07:15)
[2023-09-07 21:23] VITALS: RESP 16
[2023-09-08] MEDS: chlordiazePOXIDE HCL 10 MG CAPSULE PO ONE (05:26)
[2023-09-08] MEDS ORDERED: INSULIN ASPART SLIDING SCALE (NOVOLOG) 1 VIAL SQ ONE (07:42)
[2023-09-08 08:55] VITALS: BP 135/81; PULSE 83; TEMP 97.6
== END 2023-09-08 09:19 | disposition home or self-care (01) | DRG 775 ==
LOC: YASAS 03:00 → Y3N 04:26
PROVIDERS: ADMIT Allergy & Immunology; ATTEND Allergy & Immunology
PROC: HZ2ZZZZ Detoxification Services for Substance Abuse Treatment (ICD-10-PCS; principal; 2023-09-04)
DX: F10.230 Alcohol dependence with withdrawal, uncomplicated (principal); I10 Essential (primary) hypertension; K21.9 Gastro-esophageal reflux disease without esophagitis; E11.9 Type 2 diabetes mellitus without complications; Z79.84 Long term (current) use of oral hypoglycemic drugs
CPT/HCPCS: 80305; 82962

== ENCOUNTER 2023-12-26 16:55 | Inpatient (IN) | payer OTHER ==
[2023-12-26] MEDS ORDERED: ONDANSETRON *ODT* 4 MG TABLET ONE (18:19)
[2023-12-26 18:45] LABS: BASO % 0.5 % (0-2.0); HEMATOCRIT 45.2 % (35.4-49); HEMOGLOBIN 15.7 GM/dL (11.7-16.9); LYMPH % 16.2 % (8-40); MCH 29.4 pg (25.7-33.7); MCHC 34.8 g/dl (32.0-35.9); MEAN CELL VOLUME 84.5 fl (80-96); MEAN PLT VOLUME 6.9 fl (7.5-11.1); MONO % 5.8 % (3.8-10.2); NEUT % 77.5 % (42.8-82.8); PLATELET COUNT 243 10^3/uL (134-434); RBC 5.35 M/mm3 (4.00-5.60); RDW 14.7 % (11.9-15.9); WHITE BLOOD COUNT 7.4 K/mm3 (4.0-10.0)
[2023-12-26] MEDS: ONDANSETRON 4 MG TABLET PO ONE (18:52)
[2023-12-26] MEDS ORDERED: MAG HYDROX/AL HYDROX/SIMETH 30 ML UNIT-DOSE CUP ONE (18:55)
[2023-12-26] MEDS ORDERED: FAMOTIDINE 20 MG TABLET ONE (18:55)
[2023-12-26 18:59] LABS: POTASSIUM 3.8 mmol/L (3.5-5.1)
[2023-12-26] MEDS: FAMOTIDINE 20 MG TABLET PO ONE (19:01)
[2023-12-26] MEDS: MAG HYDROX/AL HYDROX/SIMETH 30 ML UNIT-DOSE CUP PO ONE (19:01)
[2023-12-26 19:04] LABS: ALBUMIN 4.2 g/dl (3.4-5.0); CALCIUM 9.2 mg/dL (8.5-10.1)
[2023-12-26 19:05] LABS: BLOOD UREA NITROGEN 7.5 mg/dL (7-18)
[2023-12-26 19:08] LABS: CREATININE 0.8 mg/dL (0.55-1.3)
[2023-12-26 19:09] LABS: BILIRUBIN,TOTAL 1.7 mg/dL (0.2-1); TOT PROT 8.1 g/dl (6.4-8.2)
[2023-12-26] MEDS ORDERED: chlordiazePOXIDE HCL 25 MG CAPSULE ONE ×2 (19:35→22:17)
[2023-12-26] MEDS: chlordiazePOXIDE HCL 25 MG CAPSULE PO ONE (19:45)
[2023-12-26] MEDS: SODIUM CHLORIDE 0.9% 500 ML INFUS.BAG IV ONE ×2 (20:06→20:17)
[2023-12-26] MEDS ORDERED: MAGNESIUM SULFATE IN WATER 2 GM/50 ML IVPB IVPB ONE (20:19)
[2023-12-26] MEDS: DEXTROSE 5%-NORMAL SALINE 1,000 ML IV ONE (20:27)
[2023-12-26] MEDS: MAGNESIUM SULF 50% (8.12 MEQ/2 ML-1 GM VIAL) IVPB ONE (20:27)
[2023-12-26] MEDS ORDERED: diazePAM CARPU-JECT 10 MG/2 ML DISP.SYRIN ONE (21:06)
[2023-12-26] MEDS: diazePAM CARPU-JECT 10 MG/2 ML DISP.SYRIN IVPUSH ONE (21:10)
[2023-12-26] MEDS ORDERED: ACETAMINOPHEN 325 MG TABLET (FP) PO PRN (21:44)
[2023-12-26] MEDS ORDERED: DOCUSATE SODIUM 100 MG CAPSULE (FP) PO PRN (21:44)
[2023-12-26] MEDS ORDERED: DICYCLOMINE HCL 10 MG CAPSULE PO PRN (21:52)
[2023-12-26] MEDS ORDERED: LOPERAMIDE HCL 2 MG CAPSULE PO PRN (21:52)
[2023-12-26] MEDS ORDERED: hydrOXYzine PAMOATE 25 MG CAPSULE (FP) PO PRN (21:52)
[2023-12-26] MEDS ORDERED: BISMUTH SUBSALICYLATE 524 MG/30 ML PO PRN (21:52)
[2023-12-26] MEDS ORDERED: chlordiazePOXIDE HCL 25 MG CAPSULE PO PRN (21:58)
[2023-12-26] MEDS ORDERED: INSULIN ASPART SLIDING SCALE (NOVOLOG) 1 VIAL SQ ONE (22:17)
[2023-12-26] MEDS: chlordiazePOXIDE HCL 25 MG CAPSULE PO SCH (22:31)
[2023-12-26] MEDS: INSULIN ASPART SLIDING SCALE (NOVOLOG) 1 VIAL SQ SCH (22:31)
[2023-12-26] MEDS: SODIUM CHLORIDE 1,000 ML IV SCH (22:31)
[2023-12-27 01:14] LABS: BASO % 0.4 % (0-2.0); EOS % 0.3 % (0-4.5); HEMATOCRIT 40.4 % (35.4-49); HEMOGLOBIN 14.1 GM/dL (11.7-16.9); LYMPH % 17.4 % (8-40); MCH 29.3 pg (25.7-33.7); MEAN CELL VOLUME 83.9 fl (80-96); MEAN PLT VOLUME 6.7 fl (7.5-11.1); MONO % 7.8 % (3.8-10.2); NEUT % 74.1 % (42.8-82.8); PLATELET COUNT 195 10^3/uL (134-434); RBC 4.81 M/mm3 (4.00-5.60); RDW 14.2 % (11.9-15.9); WHITE BLOOD COUNT 5.8 K/mm3 (4.0-10.0)
[2023-12-27 01:31] LABS: POTASSIUM 3.5 mmol/L (3.5-5.1)
[2023-12-27 01:33] LABS: CALCIUM 8.3 mg/dL (8.5-10.1)
[2023-12-27 01:34] LABS: ALBUMIN 3.6 g/dl (3.4-5.0); BLOOD UREA NITROGEN 7.2 mg/dL (7-18); INR 0.96 (0.83-1.09); MAGNESIUM 2.6 mg/dL (1.8-2.4)
[2023-12-27 01:36] LABS: INR 0.95 (0.83-1.09); PROTHROMBIN TIME (PATIENT) 10.9 SEC (9.7-13.0)
[2023-12-27 01:37] LABS: ACTIVATED PTT 30.9 SECONDS (25.2-36.5); CREATININE 0.6 mg/dL (0.55-1.3)
[2023-12-27 01:38] LABS: ACTIVATED PTT 31.7 SECONDS (25.2-36.5); BILIRUBIN,TOTAL 1.7 mg/dL (0.2-1); TOT PROT 6.9 g/dl (6.4-8.2)
[2023-12-27 01:45] LABS: LACTIC ACID 2.5 mmol/L (0.4-2.0)
[2023-12-27] MEDS ORDERED: chlordiazePOXIDE HCL 25 MG CAPSULE ONE (05:03)
[2023-12-27 06:04] VITALS: BMI 27.3
[2023-12-27] MEDS ORDERED: MAG HYDROX/AL HYDROX/SIMETH 30 ML UNIT-DOSE CUP PO PRN (06:33)
[2023-12-27] MEDS: SODIUM CHLORIDE 0.9%/KCL 20 MEQ/1,000 ML INFUS.BAG IV SCH (06:50)
[2023-12-27] MEDS ORDERED: ACETAMINOPHEN 1000 MG/100 ML BAG IVPB PRN (07:36)
[2023-12-27] MEDS ORDERED: ONDANSETRON 4 MG/2 ML VIAL IVPUSH PRN (07:36)
[2023-12-27] MEDS: NADOLOL 20 MG TABLET (FP) PO SCH (10:51)
[2023-12-27] MEDS: FOLIC ACID 1 MG TABLET (FP) PO SCH (10:51)
[2023-12-27] MEDS: PANTOPRAZOLE 40 MG TABLET PO SCH (10:51)
[2023-12-27] MEDS: MULTIVITAMINS (DAILY MVI) TABLET (FP) PO SCH (10:52)
[2023-12-28] MEDS: chlordiazePOXIDE HCL 25 MG CAPSULE PO SCH (05:19)
[2023-12-28 09:19] VITALS: BP 109/56; PULSE 75; RESP 20; TEMP 98.5
[2023-12-28 10:20] LABS: BASO % 0.5 % (0-2.0); EOS % 1.8 % (0-4.5); HEMATOCRIT 41.2 % (35.4-49); HEMOGLOBIN 14.3 GM/dL (11.7-16.9); LYMPH % 20.4 % (8-40); MCH 29.7 pg (25.7-33.7); MCHC 34.7 g/dl (32.0-35.9); MEAN CELL VOLUME 85.6 fl (80-96); MEAN PLT VOLUME 7.4 fl (7.5-11.1); MONO % 6.4 % (3.8-10.2); NEUT % 70.9 % (42.8-82.8); PLATELET COUNT 159 10^3/uL (134-434); RBC 4.82 M/mm3 (4.00-5.60); RDW 14.5 % (11.9-15.9); WHITE BLOOD COUNT 3.8 K/mm3 (4.0-10.0)
[2023-12-28 10:49] LABS: POTASSIUM 4.4 mmol/L (3.5-5.1)
[2023-12-28 10:51] LABS: CALCIUM 8.7 mg/dL (8.5-10.1)
[2023-12-28 10:52] LABS: ALBUMIN 3.5 g/dl (3.4-5.0); BLOOD UREA NITROGEN 6.2 mg/dL (7-18)
[2023-12-28 10:55] LABS: CREATININE 0.7 mg/dL (0.55-1.3)
[2023-12-28 10:56] LABS: BILIRUBIN,TOTAL 1.6 mg/dL (0.2-1); TOT PROT 6.5 g/dl (6.4-8.2)
[2023-12-28] MEDS ORDERED: INSULIN ASPART SLIDING SCALE (NOVOLOG) 1 VIAL SQ ONE (12:25)
[2023-12-29] MEDS ORDERED: chlordiazePOXIDE HCL 10 MG CAPSULE PO PRN
[2023-12-29] MEDS ORDERED: chlordiazePOXIDE HCL 10 MG CAPSULE PO SCH (05:00)
[2023-12-30] MEDS ORDERED: chlordiazePOXIDE HCL 10 MG CAPSULE PO SCH (05:00)
[2023-12-31] MEDS ORDERED: chlordiazePOXIDE HCL 10 MG CAPSULE PO ONE (05:00)
== END 2023-12-28 13:06 | disposition other institution (70) | DRG 775 ==
LOC: JER 16:55 → JERBED 20:14 → J8W 12-27 05:49 → OBSVTOIN 12-27 14:53
PROVIDERS: ADMIT Internal Medicine; ATTEND Nurse Practitioner Family
PROC: HZ2ZZZZ Detoxification Services for Substance Abuse Treatment (ICD-10-PCS; principal; 2023-12-27)
DX: F10.239 Alcohol dependence with withdrawal, unspecified (principal); E87.20 Acidosis, unspecified; K76.0 Fatty (change of) liver, not elsewhere classified; E11.9 Type 2 diabetes mellitus without complications; E78.5 Hyperlipidemia, unspecified
CPT/HCPCS: 36415; 71046-TC-FY; 80053; 82272; 82962; 83605; 83690; 83735; 84100; 85025; 85610; 85730; 93005; 93010; 99285-25; G0378

== ENCOUNTER 2023-12-28 13:48 | Inpatient (IN) | payer OTHER ==
[2023-12-28 14:25] VITALS: BMI 27.7
[2023-12-28] MEDS ORDERED: hydrOXYzine PAMOATE 25 MG CAPSULE (FP) PO PRN (15:25)
[2023-12-28] MEDS ORDERED: ONDANSETRON *ODT* 4 MG TABLET SL PRN (15:25)
[2023-12-28] MEDS ORDERED: DICYCLOMINE HCL 10 MG CAPSULE PO PRN (15:25)
[2023-12-28] MEDS ORDERED: guaiFENesin 600 MG TABLET.ER (FP) PO PRN (15:25)
[2023-12-28] MEDS ORDERED: MAGNESIUM HYDROX 2400MG/30ML ORAL SUSPENSION 30 ML CUP PO PRN (15:25)
[2023-12-28] MEDS ORDERED: IBUPROFEN 600 MG TABLET (FP) PO PRN (15:25)
[2023-12-28] MEDS ORDERED: LOPERAMIDE HCL 2 MG CAPSULE PO PRN (15:25)
[2023-12-28] MEDS ORDERED: METHOCARBAMOL 500 MG TABLET PO PRN (15:25)
[2023-12-28] MEDS ORDERED: BISMUTH SUBSALICYLATE 524 MG/30 ML PO PRN (15:25)
[2023-12-28] MEDS ORDERED: LORazepam 1 MG TABLET PO PRN (15:25)
[2023-12-28] MEDS ORDERED: MAG HYDROX/AL HYDROX/SIMETH 30 ML UNIT-DOSE CUP PO PRN (15:25)
[2023-12-28] MEDS ORDERED: IBUPROFEN 400 MG TABLET (FP) PO PRN (15:25)
[2023-12-28] MEDS ORDERED: BENZOCAINE/MENTHOL (CHLORASEPTIC ) LOZENGE MM PRN (15:25)
[2023-12-28] MEDS ORDERED: NALOXONE (NARCAN) HCL 4 MG/0.1 ML SPRAY NS PRN (15:25)
[2023-12-28] MEDS ORDERED: POLYETHYLENE GLYCOL (HEALTHYLAX) 3350 17 GM PACKET PO PRN (15:25)
[2023-12-28] MEDS ORDERED: NALOXONE HCL 0.4 MG/ML VIAL IM PRN (15:25)
[2023-12-28] MEDS ORDERED: BENZONATATE 200 MG CAPSULE PO PRN (15:25)
[2023-12-28] MEDS ORDERED: ACETAMINOPHEN 325 MG TABLET (FP) PO PRN (15:25)
[2023-12-28] MEDS ORDERED: LORazepam 2 MG TABLET ONE (18:56)
[2023-12-28] MEDS: LORazepam 2 MG TABLET PO SCH (18:57)
[2023-12-28] MEDS: PRENATAL VITAMINS W/ FOLIC ACID TABLET (FP) PO SCH (19:00)
[2023-12-28] MEDS: metFORMIN HCL 500 MG TABLET (FP) PO SCH (20:19)
[2023-12-28] MEDS: MELATONIN 5 MG TABLETS PO SCH (22:18)
[2023-12-28] MEDS: THIAMINE 100 MG TABLET PO SCH (22:18)
[2023-12-29] MEDS: PANTOPRAZOLE 40 MG TABLET PO SCH (10:12)
[2023-12-29] MEDS: NADOLOL 20 MG TABLET (FP) PO SCH (10:39)
[2023-12-29 14:20] LABS: HEMOGLOBIN 13.4 GM/dL (11.7-16.9); MCH 29.3 pg (25.7-33.7); MCHC 33.5 g/dl (32.0-35.9); MEAN CELL VOLUME 87.6 fl (80-96); PLATELET COUNT 139 10^3/uL (134-434); RBC 4.57 M/mm3 (4.00-5.60); WHITE BLOOD COUNT 3.8 K/mm3 (4.0-10.0)
[2023-12-29 14:29] LABS: CHLORIDE 102 mmol/L (98-107); POTASSIUM 4.1 mmol/L (3.5-5.1); SODIUM 135 mmol/L (136-145)
[2023-12-29 14:35] LABS: CALCIUM 9.3 mg/dL (8.5-10.1)
[2023-12-29 14:36] LABS: ALBUMIN 3.4 g/dl (3.4-5.0); ANION GAP 6 mmol/L (4-13); BLOOD UREA NITROGEN 11.4 mg/dL (7-18); CO2 27 mmol/L (21-32); GLUCOSE,RANDOM 277 mg/dL (74-106)
[2023-12-29 14:39] LABS: CREATININE 0.8 mg/dL (0.55-1.3); SGOT/AST 63 U/L (15-37); SGPT/ALT 60 U/L (13-61)
[2023-12-29 14:40] LABS: TOT PROT 6.3 g/dl (6.4-8.2)
[2023-12-29 14:41] LABS: ALK PHOS 142 U/L (45-117)
[2023-12-30] MEDS: LORazepam 1 MG TABLET PO SCH (05:28)
[2023-12-31] MEDS ORDERED: LORazepam 0.5 MG TABLET PO PRN
[2023-12-31] MEDS: LORazepam 0.5 MG TABLET PO SCH (05:25)
[2024-01-01] MEDS: LORazepam 0.5 MG TABLET PO ONE (05:12)
[2024-01-01 06:14] VITALS: RESP 16
[2024-01-01 09:29] VITALS: BP 119/81; PULSE 80; TEMP 96.9
== END 2024-01-01 09:17 | disposition home or self-care (01) | DRG 775 ==
LOC: YASAS 13:48 → Y3N 19:40
PROVIDERS: ADMIT Allergy & Immunology; ATTEND Surgery
PROC: HZ2ZZZZ Detoxification Services for Substance Abuse Treatment (ICD-10-PCS; principal; 2023-12-28)
DX: F10.230 Alcohol dependence with withdrawal, uncomplicated (principal); K21.9 Gastro-esophageal reflux disease without esophagitis; E11.9 Type 2 diabetes mellitus without complications; Z79.84 Long term (current) use of oral hypoglycemic drugs; Z87.19 Personal history of other diseases of the digestive system
CPT/HCPCS: 36415; 80053; 80305; 80307; 82962; 85027; 86780; 93005; 93010

== ENCOUNTER 2024-04-10 11:18 | Emergency (ER) | payer OTHER ==
[2024-04-10 11:24] VITALS: TEMP 99; BMI 25.3
[2024-04-10 12:05] LABS: BASO % 0.6 % (0-2.0); EOS % 0.3 % (0-4.5); HEMATOCRIT 43.7 % (35.4-49); HEMOGLOBIN 15.1 GM/dL (11.7-16.9); LYMPH % 16.3 % (8-40); MCH 28.9 pg (25.7-33.7); MCHC 34.4 g/dl (32.0-35.9); MEAN PLT VOLUME 7.3 fl (7.5-11.1); MONO % 7.8 % (3.8-10.2); PLATELET COUNT 189 10^3/uL (134-434); RBC 5.21 M/mm3 (4.00-5.60); RDW 14.1 % (11.9-15.9); WHITE BLOOD COUNT 4.6 K/mm3 (4.0-10.0)
[2024-04-10] MEDS ORDERED: FAMOTIDINE 20 MG/50 ML IVPB 20 MG/50 ML MG IVPB ONE (12:21)
[2024-04-10] MEDS ORDERED: ONDANSETRON 4 MG/2 ML VIAL ONE (12:21)
[2024-04-10] MEDS: ONDANSETRON 4 MG/2 ML VIAL IVPUSH ONE (12:27)
[2024-04-10] MEDS: FAMOTIDINE 20 MG/50 ML IVPB 20 MG/50 ML MG IVPB ONE (12:27)
[2024-04-10 12:40] LABS: BLOOD UREA NITROGEN 5.4 mg/dL (7-18)
[2024-04-10 12:41] LABS: MAGNESIUM 2.2 mg/dL (1.8-2.4)
[2024-04-10 12:44] LABS: CREATININE 0.8 mg/dL (0.55-1.3)
[2024-04-10 12:45] LABS: BILIRUBIN,TOTAL 1.3 mg/dL (0.2-1); TOT PROT 7.6 g/dl (6.4-8.2)
[2024-04-10] MEDS ORDERED: diazePAM CARPU-JECT 10 MG/2 ML DISP.SYRIN ONE (12:45)
[2024-04-10] MEDS ORDERED: THIAMINE HCL 200 MG/2 ML VIAL ONE (12:46)
[2024-04-10 12:47] LABS: BASO % 0.5 % (0-2.0); EOS % 0.2 % (0-4.5); HEMATOCRIT 43.2 % (35.4-49); HEMOGLOBIN 14.7 GM/dL (11.7-16.9); LYMPH % 15.6 % (8-40); MCH 28.7 pg (25.7-33.7); MCHC 34.1 g/dl (32.0-35.9); MEAN CELL VOLUME 84.1 fl (80-96); MEAN PLT VOLUME 7.3 fl (7.5-11.1); NEUT % 76.7 % (42.8-82.8); PLATELET COUNT 187 10^3/uL (134-434); RBC 5.14 M/mm3 (4.00-5.60); RDW 14.3 % (11.9-15.9); WHITE BLOOD COUNT 4.4 K/mm3 (4.0-10.0)
[2024-04-10] MEDS: SODIUM CHLORIDE 0.9% 500 ML INFUS.BAG IV ONE (12:51)
[2024-04-10] MEDS: diazePAM CARPU-JECT 10 MG/2 ML DISP.SYRIN IVPUSH ONE (12:51)
[2024-04-10] MEDS: THIAMINE HCL 200 MG/2 ML VIAL IVPB ONE (12:51)
[2024-04-10 13:17] VITALS: BP 108/61; PULSE 112; RESP 16
[2024-04-10] MEDS ORDERED: ACETAMINOPHEN 325 MG TABLET (FP) ONE (15:10)
[2024-04-10] MEDS: ACETAMINOPHEN 500 MG TABLET (FP) PO ONE (15:13)
== END 2024-04-10 15:16 ==
LOC: JER 11:18
PROC: 3E033GC Introduction of Other Therapeutic Substance into Peripheral Vein, Percutaneous Approach (ICD-10-PCS; principal; 2024-04-10)
PROC: 3E033GC Introduction of Other Therapeutic Substance into Peripheral Vein, Percutaneous Approach (ICD-10-PCS; 2024-04-10)
PROC: 3E033GC Introduction of Other Therapeutic Substance into Peripheral Vein, Percutaneous Approach (ICD-10-PCS; 2024-04-10)
PROC: 3E033GC Introduction of Other Therapeutic Substance into Peripheral Vein, Percutaneous Approach (ICD-10-PCS; 2024-04-10)
DX: F10.939 Alcohol use, unspecified with withdrawal, unspecified (principal); R11.2 Nausea with vomiting, unspecified; R51.9 Headache, unspecified; R00.0 Tachycardia, unspecified; R10.84 Generalized abdominal pain
CPT/HCPCS: 36415; 80053; 83690; 83735; 85025; 93005; 93010; 99284-25

== ENCOUNTER 2024-05-31 13:26 | Emergency (ER) | payer OTHER ==
[2024-05-31 13:42] VITALS: BP 145/88; PULSE 120; RESP 18; TEMP 97.6; BMI 28.4
[2024-05-31] MEDS ORDERED: MAG HYDROX/AL HYDROX/SIMETH 30 ML UNIT-DOSE CUP PO ONE (14:48)
[2024-05-31] MEDS ORDERED: FAMOTIDINE 20 MG/50 ML IVPB 20 MG/50 ML MG IVPB ONE (14:48)
[2024-05-31] MEDS ORDERED: ACETAMINOPHEN 1000 MG/100 ML BAG IVPB ONE (14:48)
[2024-05-31] MEDS ORDERED: FAMOTIDINE 10 MG TABLET PO ONE (15:06)
[2024-05-31] MEDS ORDERED: chlordiazePOXIDE HCL 25 MG CAPSULE PO ONE (15:06)
[2024-05-31] MEDS ORDERED: ONDANSETRON *ODT* 4 MG TABLET SL ONE (15:06)
[2024-05-31] MEDS ORDERED: chlordiazePOXIDE HCL 25 MG CAPSULE ONE (15:25)
[2024-05-31] MEDS ORDERED: MAG HYDROX/AL HYDROX/SIMETH 30 ML UNIT-DOSE CUP ONE (15:26)
[2024-05-31] MEDS ORDERED: FAMOTIDINE 10 MG TABLET ONE (15:26)
[2024-05-31] MEDS ORDERED: ONDANSETRON *ODT* 4 MG TABLET ONE (15:26)
== END 2024-05-31 15:30 | disposition left against medical advice (07) ==
LOC: JER 13:26
DX: R10.13 Epigastric pain (principal); R11.2 Nausea with vomiting, unspecified
CPT/HCPCS: 99283-25

== ENCOUNTER 2024-09-14 17:44 | Emergency (ER) | payer OTHER ==
[2024-09-14 17:58] VITALS: BP 142/99; PULSE 140; RESP 19; TEMP 99; BMI 26.8
[2024-09-14] MEDS ORDERED: ONDANSETRON 4 MG/2 ML VIAL ONE (18:35)
[2024-09-14] MEDS ORDERED: diazePAM CARPU-JECT 10 MG/2 ML DISP.SYRIN ONE (18:35)
[2024-09-14] MEDS ORDERED: ACETAMINOPHEN INJECTION 100 ML ONE (18:35)
[2024-09-14] MEDS ORDERED: FAMOTIDINE 20 MG/50 ML IVPB 20 MG/50 ML MG IVPB ONE (18:35)
[2024-09-14] MEDS: ONDANSETRON 4 MG/2 ML VIAL IVPUSH ONE (18:50)
[2024-09-14] MEDS: SODIUM CHLORIDE 0.9% 500 ML INFUS.BAG IV ONE ×2 (18:50→22:03)
[2024-09-14] MEDS: diazePAM CARPU-JECT 10 MG/2 ML DISP.SYRIN IVPUSH ONE (18:55)
[2024-09-14] MEDS: FAMOTIDINE 20 MG/50 ML IVPB 20 MG/50 ML MG IVPB ONE (19:00)
[2024-09-14] MEDS: ACETAMINOPHEN 1000 MG/100 ML BAG IVPB ONE (19:00)
[2024-09-14 19:11] LABS: ABSOLUTE IMMATURE GRANULOCYTES 0.06 x10^3/uL (0.0-0.031); BASOPHILS # 0.03 x10^3/uL (0.01-0.08); HEMATOCRIT 41.6 % (40.1-51.0); HEMOGLOBIN 14.9 g/dL (13.7-17.5); MCHC 35.8 g/dl (32.3-36.5); MEAN CELL VOLUME 79.1 fl (79.0-92.2); MEAN PLT VOLUME 9.6 fl (9.4-12.4); PLATELET COUNT 141 x10^3/uL (163-337); RDW 12.2 % (12.1-15.9)
[2024-09-14 19:12] LABS: URINE APPEARANCE CLEAR; URINE BILIRUBIN NEGATIVE (NEGATIVE); URINE COLOR YELLOW; URINE GLUCOSE (UA) 3+ (NEGATIVE); URINE KETONE 1+ (NEGATIVE); URINE LEUK ESTERASE NEGATIVE (NEGATIVE); URINE NITRITE NEGATIVE (NEGATIVE); URINE PROTEIN TRACE (NEGATIVE); URINE UROBILINOGEN 0.2 mg/dL (0.2-1.0)
[2024-09-14 20:19] LABS: POTASSIUM 4.2 mmol/L (3.5-5.1)
[2024-09-14 20:22] LABS: BLOOD UREA NITROGEN 7.4 mg/dL (7-18); CALCIUM 9.1 mg/dL (8.5-10.1)
[2024-09-14 20:25] LABS: CREATININE 0.8 mg/dL (0.55-1.3)
[2024-09-14 20:26] LABS: HCV DIAGNOSTIC IN-HOUSE W/RFLX NON-REACTIVE (NONREACTIVE)
[2024-09-14 20:27] LABS: BILIRUBIN,TOTAL 1.2 mg/dL (0.2-1); TOT PROT 7.8 g/dl (6.4-8.2)
[2024-09-14 23:32] LABS: HIV INTERPRETATION NEGATIVE (NEGATIVE)
[2024-09-15] MEDS ORDERED: METOCLOPRAMIDE HCL INJECTION 10 MG/2 ML VIAL ONE (00:02)
[2024-09-15] MEDS: METOCLOPRAMIDE HCL INJECTION 10 MG/2 ML VIAL IVPUSH ONE (00:35)
[2024-09-15 01:25] LABS: BLOOD UREA NITROGEN 6.1 mg/dL (7-18); CALCIUM 8.4 mg/dL (8.5-10.1)
[2024-09-15 01:29] LABS: CREATININE 0.7 mg/dL (0.55-1.3)
== END 2024-09-15 04:55 | disposition home or self-care (01) ==
LOC: JER 17:44
PROC: 3E033GC Introduction of Other Therapeutic Substance into Peripheral Vein, Percutaneous Approach (ICD-10-PCS; principal; 2024-09-14)
PROC: 3E033NZ Introduction of Analgesics, Hypnotics, Sedatives into Peripheral Vein, Percutaneous Approach (ICD-10-PCS; 2024-09-14)
PROC: 3E033GC Introduction of Other Therapeutic Substance into Peripheral Vein, Percutaneous Approach (ICD-10-PCS; 2024-09-14)
PROC: 3E033GC Introduction of Other Therapeutic Substance into Peripheral Vein, Percutaneous Approach (ICD-10-PCS; 2024-09-14)
PROC: 3E033GC Introduction of Other Therapeutic Substance into Peripheral Vein, Percutaneous Approach (ICD-10-PCS; 2024-09-14)
DX: F10.19 Alcohol abuse with unspecified alcohol-induced disorder (principal); E11.10 Type 2 diabetes mellitus with ketoacidosis without coma; F10.129 Alcohol abuse with intoxication, unspecified; F10.139 Alcohol abuse with withdrawal, unspecified; Y90.9 Presence of alcohol in blood, level not specified; N48.89 Other specified disorders of penis; R10.13 Epigastric pain; R25.1 Tremor, unspecified; R47.81 Slurred speech; R26.81 Unsteadiness on feet; L29.9 Pruritus, unspecified; R11.2 Nausea with vomiting, unspecified; R51.9 Headache, unspecified; R19.7 Diarrhea, unspecified; R00.0 Tachycardia, unspecified; F41.9 Anxiety disorder, unspecified; R61 Generalized hyperhidrosis
CPT/HCPCS: 36415; 80048; 80053; 81003; 83690; 85025; 86803; 87086; 87389; 99284-25

== ENCOUNTER 2024-09-15 05:33 | Inpatient (IN) | payer OTHER ==
[2024-09-15 05:42] VITALS: BMI 24.2
[2024-09-15] MEDS ORDERED: guaiFENesin 600 MG TABLET.ER (FP) PO PRN (06:20)
[2024-09-15] MEDS ORDERED: DICYCLOMINE HCL 10 MG CAPSULE PO PRN (06:20)
[2024-09-15] MEDS ORDERED: MAGNESIUM HYDROX 2400MG/30ML ORAL SUSPENSION 30 ML CUP PO PRN (06:20)
[2024-09-15] MEDS ORDERED: MAG HYDROX/AL HYDROX/SIMETH 30 ML UNIT-DOSE CUP PO PRN (06:20)
[2024-09-15] MEDS ORDERED: LOPERAMIDE HCL 2 MG CAPSULE PO PRN (06:20)
[2024-09-15] MEDS ORDERED: POLYETHYLENE GLYCOL (HEALTHYLAX) 3350 17 GM PACKET PO PRN (06:20)
[2024-09-15] MEDS ORDERED: IBUPROFEN 600 MG TABLET (FP) PO PRN (06:20)
[2024-09-15] MEDS ORDERED: IBUPROFEN 400 MG TABLET (FP) PO PRN (06:20)
[2024-09-15] MEDS ORDERED: BENZOCAINE/MENTHOL (CHLORASEPTIC ) LOZENGE MM PRN (06:20)
[2024-09-15] MEDS ORDERED: NALOXONE (NARCAN) HCL 4 MG/0.1 ML SPRAY NS PRN (06:20)
[2024-09-15] MEDS ORDERED: BENZONATATE 200 MG CAPSULE PO PRN (06:20)
[2024-09-15] MEDS: INSULIN ASPART SLIDING SCALE (NOVOLOG) 1 VIAL SQ SCH (06:39)
[2024-09-15] MEDS ORDERED: INSULIN (NOVOLOG) ASPART 100 UNITS/ML 10ML VIAL ONE ×3 (06:40→16:54)
[2024-09-15] MEDS ORDERED: ONDANSETRON *ODT* 4 MG TABLET ONE (06:45)
[2024-09-15] MEDS: ONDANSETRON *ODT* 4 MG TABLET SL PRN (06:47)
[2024-09-15] MEDS: ACETAMINOPHEN 325 MG TABLET (FP) PO PRN (07:12)
[2024-09-15] MEDS: PRENATAL VITAMINS W/ FOLIC ACID TABLET (FP) PO SCH (10:23)
[2024-09-15] MEDS ORDERED: LORazepam 1 MG TABLET PO PRN (10:38)
[2024-09-15] MEDS: LORazepam 2 MG TABLET PO SCH (11:29)
[2024-09-15] MEDS: amLODIPine BESYLATE 5 MG TABLET (FP) PO SCH (11:29)
[2024-09-15] MEDS: TRIMETHOBENZAMIDE HCL 200MG/2ML INJ IM ONE (11:33)
[2024-09-15] MEDS: METHOCARBAMOL 500 MG TABLET PO PRN (22:23)
[2024-09-15] MEDS: MELATONIN 5 MG TABLETS PO SCH (22:23)
[2024-09-15] MEDS: THIAMINE 100 MG TABLET PO SCH (22:23)
[2024-09-15] MEDS: hydrOXYzine PAMOATE 25 MG CAPSULE (FP) PO PRN (22:26)
[2024-09-16] MEDS ORDERED: INSULIN (NOVOLOG) ASPART 100 UNITS/ML 10ML VIAL ONE ×2 (07:24→11:23)
[2024-09-16 11:10] LABS: HEMATOCRIT 37.5 % (40.1-51.0); HEMOGLOBIN 12.9 g/dL (13.7-17.5); MCHC 34.4 g/dl (32.3-36.5); MEAN CELL VOLUME 82.4 fl (79.0-92.2); MEAN PLT VOLUME 10.1 fl (9.4-12.4); PLATELET COUNT 94 x10^3/uL (163-337); RDW 12.7 % (12.1-15.9)
[2024-09-16 11:24] LABS: POTASSIUM 3.2 mmol/L (3.5-5.1)
[2024-09-16 11:27] LABS: CALCIUM 9.1 mg/dL (8.5-10.1)
[2024-09-16 11:28] LABS: ALBUMIN 3.3 g/dl (3.4-5.0)
[2024-09-16 11:29] LABS: BLOOD UREA NITROGEN 9.8 mg/dL (7-18); CREATININE 0.7 mg/dL (0.55-1.3)
[2024-09-16 11:33] LABS: BILIRUBIN,TOTAL 1.5 mg/dL (0.2-1); TOT PROT 6.3 g/dl (6.4-8.2)
[2024-09-16] MEDS: POTASSIUM CHLORIDE ORAL LIQUID 20 MEQ/15 ML PO SCH (13:59)
[2024-09-16] MEDS: metFORMIN HCL 500 MG TABLET (FP) PO SCH (16:55)
[2024-09-17] MEDS: LORazepam 1 MG TABLET PO SCH (05:52)
[2024-09-17] MEDS: BISMUTH SUBSALICYLATE 524 MG/30 ML PO PRN (09:13)
[2024-09-17] MEDS ORDERED: INSULIN (NOVOLOG) ASPART 100 UNITS/ML 10ML VIAL ONE (11:17)
[2024-09-18] MEDS ORDERED: LORazepam 0.5 MG TABLET PO PRN
[2024-09-18] MEDS: LORazepam 0.5 MG TABLET PO SCH (06:00)
[2024-09-18] MEDS ORDERED: INSULIN (NOVOLOG) ASPART 100 UNITS/ML 10ML VIAL ONE ×2 (11:07→16:58)
[2024-09-18] MEDS: PANTOPRAZOLE 40 MG TABLET PO SCH (17:14)
[2024-09-19] MEDS: LORazepam 0.5 MG TABLET PO ONE (05:39)
[2024-09-19] MEDS ORDERED: INSULIN (NOVOLOG) ASPART 100 UNITS/ML 10ML VIAL ONE (07:47)
[2024-09-19 12:55] VITALS: BP 132/85; PULSE 90; RESP 16; TEMP 97.5
== END 2024-09-19 13:05 | disposition home or self-care (01) | DRG 775 ==
LOC: YASAS 05:33 → Y6N 06:18
PROVIDERS: ADMIT Family Medicine; ATTEND Family Medicine Addiction Medicine
PROC: HZ2ZZZZ Detoxification Services for Substance Abuse Treatment (ICD-10-PCS; principal; 2024-09-15)
DX: F10.230 Alcohol dependence with withdrawal, uncomplicated (principal); E78.5 Hyperlipidemia, unspecified; E87.6 Hypokalemia; I10 Essential (primary) hypertension; K21.00 Gastro-esophageal reflux disease with esophagitis, without bleeding; K29.20 Alcoholic gastritis without bleeding; E11.65 Type 2 diabetes mellitus with hyperglycemia; Z79.84 Long term (current) use of oral hypoglycemic drugs
CPT/HCPCS: 36415; 80048; 80053; 80305; 80307; 81003; 82962; 83690; 84132; 85025; 85027; 86780; 86803; 87086; 87389; 93005; 93010; 99284-25; Q0162